=== PATIENT | female | born 1960 | race Caucasian/White ===

== ENCOUNTER 2017-11-04 17:55 | Emergency (ER) | payer MEDICAID ==
[~2017-11-04] VITALS: Ht 152.4 cm; Wt 56.0 kg
[~2017-11-04 17:55] MED LIST: ASPI-128 PO; CLIN150C2 PO; METO-292 PO; PANT-47 PO; PRAM0.253 PO; PRED10TA23 PO
[2017-11-04] MEDS ORDERED: ketorolac trometh. 30mg/ml inj. IM ONE ×2 (19:00→20:35)
[2017-11-04] MEDS ORDERED: cyclobenzaprine 10mg tablet PO ONE ×2 (19:00→20:35)
[2017-11-04] MEDS ORDERED: HYDROcodone/acetaminophen 5mg/325mg tablet PO ONE ×2 (19:00→20:35)
[2017-11-04] MEDS ORDERED: CYCL-1 PO (19:46)
[2017-11-04] MEDS ORDERED: MELO7.5T12 PO (19:46)
[2017-11-04 20:52] VITALS: BP 158/81
== END 2017-11-04 20:53 | disposition home or self-care (01) ==
LOC: ER 17:56
DX: M50.321 Other cervical disc degeneration at C4-C5 level (principal); G89.29 Other chronic pain; Z79.899 Other long term (current) drug therapy; Z88.0 Allergy status to penicillin; Z88.1 Allergy status to other antibiotic agents; Z88.2 Allergy status to sulfonamides; Z88.6 Allergy status to analgesic agent
CPT/HCPCS: 72040; 96372; 99284; J1885

== ENCOUNTER 2019-05-05 17:51 | Emergency (ER) | payer SELFPAY ==
[~2019-05-05] VITALS: Ht 157.5 cm; Wt 60.0 kg
[~2019-05-05 17:51] MED LIST changes: +CYCL-1 PO; +MELO7.5T12 PO
[2019-05-05 17:53] VITALS: BP 135/65
== END 2019-05-05 20:11 | disposition home or self-care (01) ==
LOC: ER 17:52
DX: S93.691A Other sprain of right foot, initial encounter (principal); S90.01XA Contusion of right ankle, initial encounter; G89.29 Other chronic pain; F17.200 Nicotine dependence, unspecified, uncomplicated; Z90.710 Acquired absence of both cervix and uterus; Z88.0 Allergy status to penicillin; Z88.2 Allergy status to sulfonamides; Z88.1 Allergy status to other antibiotic agents; Z88.6 Allergy status to analgesic agent; Z79.82 Long term (current) use of aspirin; Z79.899 Other long term (current) drug therapy; W01.0XXA Fall on same level from slipping, tripping and stumbling without subsequent striking against object, initial encounter; Y93.89 Activity, other specified; Y92.89 Other specified places as the place of occurrence of the external cause; Y99.8 Other external cause status
CPT/HCPCS: 29540; 73610; 99283

== ENCOUNTER 2019-11-19 14:18 | Inpatient (IN) | payer OTHER ==
[~2019-11-19] VITALS: Ht 157.5 cm; Wt 60.0 kg
[2019-11-19 14:50] LABS: BASOPHILS # (AUTO) 0.1 X10'3 (0-0.2); BASOPHILS % (AUTO) 1.4 % (0-1); EOSINOPHILS # (AUTO) 0.1 X10'3 (0-0.9); HEMATOCRIT 41.3 % (35.0-45.0); HEMOGLOBIN 14.2 g/dl (12.0-16.0); LYMPHOCYTES # (AUTO) 3.1 X10'3 (1.1-4.8); LYMPHOCYTES % (AUTO) 33.9 % (21-51); MEAN CORPUSCULAR HGB CONC 34.4 g/dL (33.0-36.5); MEAN PLATELET VOLUME 8.4 FL (7.4-10.4); MONOCYTES # (AUTO) 0.4 X10'3 (0-0.9); MONOCYTES % (AUTO) 4.8 % (2-12); NEUTROPHILS # (AUTO) 5.4 X10'3 (1.8-7.7); NEUTROPHILS % (AUTO) 58.9 % (42-75); PLATELET COUNT 283 X10'3 (140-440); RED BLOOD COUNT 4.75 X10'6 (4.20-5.60); RED CELL DISTRIBUTION WIDTH 13.7 % (11.5-14.5); WHITE BLOOD COUNT 9.1 X10'3 (4.5-11.0)
[2019-11-19 15:05] LABS: ALANINE AMINOTRANSFERASE 20 U/L (12-78); ALBUMIN 3.8 G/DL (3.4-5.0); ALKALINE PHOSPHATASE 63 IU/L (46-116); ASPARTATE AMINO TRANSFERASE 14 U/L (10-37); BILIRUBIN,TOTAL 0.2 MG/DL (0.1-1.0); BLOOD UREA NITROGEN 16 MG/DL (7-18); BUN/CREATININE RATIO 20.5 (6.6-38.0); CALCIUM 8.9 MG/DL (8.5-10.1); CREATININE 0.78 MG/DL (0.40-0.90); LIPASE 119 U/L (73-393); TOTAL CARBON DIOXIDE 27.5 MMOL/L (24-32); TOTAL PROTEIN 7.7 G/DL (6.4-8.2); eGFR 76 ML/MIN
[2019-11-19 15:06] LABS: CLARITY,URINE CLOUDY (Clear); COLOR,URINE YELLOW (Yellow); GLUCOSE, URINE NEGATIVE (Neg); KETONES,URINE NEGATIVE (Neg); LEUKOCYTE ESTERASE ,URINE NEGATIVE (Neg); NITRITES, URINE POSITIVE (Neg); OCCULT BLOOD,URINE MODERATE (Neg); PH,URINE 5.5 (4.8-8.0); PROTEIN,URINE NEGATIVE (Neg); UROBILINOGEN,URINE 0.2 E.U/dL (0.2-1.0)
[2019-11-19 15:07] LABS: UA COLLECTION TYPE CLN CATCH MIDSTREAM
[2019-11-19 15:25] LABS: BACTERIA,URINE 3+ /HPF (Neg); MUCUS STRANDS FEW /LPF (Neg); SQUAMOUS EPITHELIAL CELL,UR FEW /LPF (FEW)
[2019-11-19 15:26] LABS: RBC,URINE 0-2 /HPF (0-2); WBC,URINE 0-4 /HPF (0-4)
[2019-11-19 15:30] LABS: GLUCOSE 132 MG/DL (70-104); POTASSIUM 3.5 MMOL/L (3.5-5.1)
[2019-11-19 15:38] LABS: ANION GAP 15 (8-16); CHLORIDE 101 MMOL/L (99-107); SODIUM 143 MMOL/L (135-145)
[2019-11-19] MEDS: ketorolac trometh inj. 60 MG/2 ML VIAL IM ONE ×2 (17:57→18:07)
--- NOTE | 2019-11-19 18:36 | NUR ---
RN attempted IV and troponin lab draw x2. EDMD Lucio aware, stated patient does not need IV at this time.
[2019-11-19] MEDS: normal saline 1000ml 1,000 ML IV SCH (19:08)
[2019-11-19] MEDS ORDERED: potassium Cl 20 mEq SR tablet PO PRN ×2 (19:10)
[2019-11-19] MEDS ORDERED: magnesium Cl slow-release 64mg tablet PO PRN (19:10)
[2019-11-19] MEDS ORDERED: sincalide inj 1.2 MCG in normal saline 50ml IV soln 50 ML IV ONE (19:10)
[2019-11-19] MEDS ORDERED: potassium CL 10mEq/100ml bag 100 ML IV PRN ×2 (19:10)
[2019-11-19] MEDS ORDERED: magnesium 2GM in 50ml NS 50 ML IV PRN (19:10)
[2019-11-19] MEDS ORDERED: acetaminophen 650mg rectal suppository RC PRN (19:10)
[2019-11-19] MEDS ORDERED: magnesium 4gm in 100ml NS 100 ML IV PRN (19:10)
--- NOTE | 2019-11-19 19:20 | NUR ---
PT HAD TO WALK HER GRANDSON OUT TO HIS MOTHER
--- NOTE | 2019-11-19 19:33 | NUR ---
SHE IS BACK, I WENT OUT TO THE PARKING LOT TO GET HER, HER DAUGHTER IS SUPPOSEDLY ON THE WAY BUT I INTRUCTED HER BACK TO HER ROOM.
[2019-11-19] MEDS ORDERED: NO HOME MEDS (19:40)
[2019-11-19] MEDS: K and/or MAG REPLACEMENT MC SCH (20:00)
[2019-11-19] MEDS: morphine 2 MG/ML inj. syringe IV PRN (20:00)
[2019-11-19] MEDS: pantoprazole 40 MG vial IV SCH (20:29)
--- NOTE | 2019-11-19 21:23 | NUR ---
I WAS INFORMED THAT SHE WAS ESCORTED BACK TO HER ROOM, SHE WAS GOING TO GO OUTSIDE. I GOT DR CHATMAN AND WE WENT INTO THE ROOM. SHE IS UPSET THAT SHE WAS STOPPED. INFORMED PT THAT SHE CANNOT GO OUTSIDE WITH AN IV. SHE KNOWS THIS FROM EARLIER, I WALKED HER GRANDSON OUTSIDE TO MEET HIS MOTHER. THAN SHE C/O BEING HUNGRY. I ASKED HER IF SHE ORDERED FOOD LIKE SHE WAS GOING TO. SHE SAID NO BECAUSE SHE WOULDN'T EAT IT ALL AND THAT WOULD BE A WASTE OF MONEY. SO I ASKED HER IF SHE WANTED ME TO BRING HER A SANDWICHE AND SHE DECLINED. DR CHATMAN WILL ORDER HER A NICOTINE PATCH.
[2019-11-19] MEDS ORDERED: nicotine 21mg patch - 24 hr TD ONE (21:25)
--- NOTE | 2019-11-19 22:45 | NUR ---
Dr oLpez notified that the patient had wanted to leave earlier and also to inform her of a UTI
--- NOTE | 2019-11-19 23:33 | NUR ---
notified pharmacy, second time, to re time the med that is adm for gallbladder study.
[2019-11-20] VITALS (19 sets, daily range): BP systolic 104–140; BP diastolic 38–76
--- NOTE | 2019-11-20 02:51 | NUR ---
lab in to draw blood, as soon as he got needle in she pulled her hand away and said "ofelia, you don't have to jab so hard!" He didn't, she did the same thing with me when I started her IV earlier.
[2019-11-20] MEDS: morphine 2 MG/ML inj. syringe IV PRN ×3 (03:02→15:43)
[2019-11-20 03:28] LABS: BASOPHILS # (AUTO) 0.1 X10'3 (0-0.2); BASOPHILS % (AUTO) 0.6 % (0-1); EOSINOPHILS # (AUTO) 0.1 X10'3 (0-0.9); EOSINOPHILS % (AUTO) 1.7 % (0-6); HEMATOCRIT 38.1 % (35.0-45.0); LYMPHOCYTES % (AUTO) 33.9 % (21-51); MEAN CORPUSCULAR HEMOGLOBIN 29.9 PG (27.0-31.0); MEAN CORPUSCULAR HGB CONC 34.2 g/dL (33.0-36.5); MEAN CORPUSCULAR VOLUME 87.2 FL (78-98); MEAN PLATELET VOLUME 8.5 FL (7.4-10.4); MONOCYTES # (AUTO) 0.6 X10'3 (0-0.9); MONOCYTES % (AUTO) 6.6 % (2-12); NEUTROPHILS % (AUTO) 57.2 % (42-75); PLATELET COUNT 243 X10'3 (140-440); RED BLOOD COUNT 4.37 X10'6 (4.20-5.60); RED CELL DISTRIBUTION WIDTH 13.5 % (11.5-14.5); WHITE BLOOD COUNT 8.7 X10'3 (4.5-11.0)
[2019-11-20 03:44] LABS: ALBUMIN 3.3 G/DL (3.4-5.0); ANION GAP 12 (8-16); BLOOD UREA NITROGEN 18 MG/DL (7-18); BUN/CREATININE RATIO 31.6 (6.6-38.0); CHLORIDE 108 MMOL/L (99-107); CREATININE 0.57 MG/DL (0.40-0.90); GLUCOSE 100 MG/DL (70-104); MAGNESIUM 2.1 MG/DL (1.5-2.4); POTASSIUM 3.8 MMOL/L (3.5-5.1); SODIUM 143 MMOL/L (135-145); TOTAL CARBON DIOXIDE 23.5 MMOL/L (24-32); eGFR > 90 ML/MIN
--- NOTE | 2019-11-20 04:28 | NUR ---
PT APPEARS TO BE ASLEEP.
--- NOTE | 2019-11-20 06:50 | NUR ---
Received patient report from ER nurse Mario RN. Awaiting arrival to room 354A.
[2019-11-20] MEDS: pantoprazole 40 MG vial IV SCH ×2 (07:44→20:37)
[2019-11-20] MEDS: normal saline 1000ml 1,000 ML IV SCH ×3 (07:44→20:43)
[2019-11-20] MEDS: K and/or MAG REPLACEMENT MC SCH ×2 (07:49→20:00)
[2019-11-20] MEDS ORDERED: sincalide inj 1.2 MCG in normal saline 50ml IV soln 50 ML IV ONE (08:00)
[2019-11-20] MEDS ORDERED: ringers solution, lacted 1,000 ML IV SCH (11:41)
[2019-11-20] MEDS ORDERED: BUPIVAcaine/PF 2.5 mg/ml (0.25%) 30ml vial ONE (11:44)
[2019-11-20] MEDS ORDERED: LIDOcaine 1% 30ml preserv. free vial ONE (11:44)
[2019-11-20] MEDS ORDERED: morphine 4 MG/ML inj SYRINge IV PRN (11:45)
[2019-11-20] MEDS ORDERED: ondansetron/PF 4mg/2ml inj IV PRN (11:45)
[2019-11-20] MEDS ORDERED: proCHLORperazine 10 MG/2 ml inj IV PRN (11:45)
[2019-11-20] MEDS ORDERED: morphine 2 MG/ML inj. syringe IV PRN (11:45)
[2019-11-20] MEDS ORDERED: meperidine/PF 25mg/ml syringe IV PRN ×2 (11:45)
[2019-11-20] MEDS ORDERED: fentaNYL/PF 50MCG/1 ML 2ML syringe ONE (11:52)
[2019-11-20] MEDS ORDERED: midazolam 2 mg/2 ml injection ONE (11:52)
[2019-11-20] MEDS ORDERED: CLINDAmcin 900mg/NS 50ml IVPB 50 ML IV ONE (11:55)
[2019-11-20] MEDS ORDERED: sevoflurane 250ml liquid IH ONE (12:08)
[2019-11-20] MEDS ORDERED: clindamycin-Cleocin 900mg/D5W 50 ML IV ONE (12:15)
[2019-11-20] MEDS ORDERED: clindamycin phosphate 150mg/ml inj. ONE ×2 (12:27)
[2019-11-20] MEDS ORDERED: propofol inj 20 ML IV ONE ×2 (12:37→12:38)
[2019-11-20] MEDS ORDERED: LIDOcaine 2% (20mg/ml) 5ml vial ONE ×2 (12:37→12:38)
[2019-11-20] MEDS ORDERED: dexamethasone sod phosphate 4mg/ml inj. ONE (12:38)
[2019-11-20] MEDS ORDERED: ondansetron/PF 4mg/2ml inj ONE (12:38)
[2019-11-20] MEDS ORDERED: glycopyrrolate 0.2mg/ml inj ONE (13:07)
[2019-11-20] MEDS ORDERED: neostigmine methylsulfate 1 MG/ML 10ml vial ONE (13:07)
[2019-11-20] MEDS ORDERED: HYDROcodone/acetaminophen 5mg/325mg tablet PO PRN (13:15)
--- NOTE | 2019-11-20 13:20 | NUR ---
Received from OR via surgical bed, accompanied by Anesthesiologist Fox and report given by Anesthesiolgist. Pt VS WNL, mask to 10L sats at 96% or greater. Abdomen with 4 lap sites and bandaids, soft to touch, CDI. 22G to left hand with IVF LR to 100cc/hr. Pt responsive, states no pain.
[2019-11-20] MEDS: meperidine/PF 25mg/ml syringe IV PRN ×3 (13:33→14:26)
[2019-11-20] MEDS ORDERED: diphenhydrAMINE 50 mg/ml inj IV ONE (13:40)
--- NOTE | 2019-11-20 13:40 | NUR ---
Called Dr Braxton to relay patient being very itchy when she woke up, demerol has been given. He states ok to give 25mg of IV benadryl and a secondary dose to follow if unresolved. Orders placed.
[2019-11-20] MEDS ORDERED: diphenhydrAMINE 50 mg/ml inj ONE (13:44)
--- NOTE | 2019-11-20 13:52 | NUR ---
Pt complains of pain and burning to left hand when IV flushed so new IV started to right hand, 22G without incident.
--- NOTE | 2019-11-20 14:15 | NUR ---
Received patient report from recovery room nurse Kristan HALLMAN.
[2019-11-20] MEDS ORDERED: diphenhydrAMINE 50 mg/ml inj IV PRN (14:20)
--- NOTE | 2019-11-20 14:40 | NUR ---
Report called to receiving nurse LEXX hewitt. Transferred via surgical bed. Belongings remain in the patient's room, 354A. Special Issues communicated to receiving nurse who is at bedside to receive patient. Pt settled into room, sleeping, BLL call light within reach, abdomen visualized by receiving nurse and myself. Chart at bedside. Daughter at bedside upon pt arrival.
--- NOTE | 2019-11-20 14:41 | NUR ---
Patient back in room 354A. Abdomen soft, 4 lap sites CDI. VSS.
[2019-11-20] MEDS ORDERED: nicotine 14mg patch - 24hr TD ONE (17:28)
[2019-11-20] MEDS: HYDROcodone/acetaminophen 10/325mg tab PO PRN (17:37)
--- NOTE | 2019-11-20 18:18 | NUR ---
Problems reprioritized. Patient report given, questions answered & plan of care reviewed with Prudence RN.
--- NOTE | 2019-11-20 18:26 | NUR ---
Patient in room CRYSTAL 354. I have received report from Carissa HALLMAN and had the opportunity to ask questions and assume patient care.
[2019-11-20] MEDS: ondansetron/PF 4mg/2ml inj IV PRN (20:37)
[2019-11-21] VITALS: BP 110/60
[2019-11-21] MEDS: HYDROcodone/acetaminophen 10/325mg tab PO PRN ×3 (03:17→19:25)
[2019-11-21] MEDS: normal saline 1000ml 1,000 ML IV SCH ×2 (05:24→21:08)
[2019-11-21 05:35] LABS: BASOPHILS % (AUTO) 0.2 % (0-1); EOSINOPHILS % (AUTO) 0 % (0-6); HEMATOCRIT 34.7 % (35.0-45.0); HEMOGLOBIN 11.8 g/dl (12.0-16.0); LYMPHOCYTES # (AUTO) 1.1 X10'3 (1.1-4.8); LYMPHOCYTES % (AUTO) 6.7 % (21-51); MEAN CORPUSCULAR HEMOGLOBIN 29.7 PG (27.0-31.0); MEAN CORPUSCULAR HGB CONC 34.1 g/dL (33.0-36.5); MEAN CORPUSCULAR VOLUME 87.2 FL (78-98); MEAN PLATELET VOLUME 8.5 FL (7.4-10.4); MONOCYTES # (AUTO) 0.8 X10'3 (0-0.9); MONOCYTES % (AUTO) 4.5 % (2-12); NEUTROPHILS # (AUTO) 15.2 X10'3 (1.8-7.7); NEUTROPHILS % (AUTO) 88.6 % (42-75); PLATELET COUNT 252 X10'3 (140-440); RED BLOOD COUNT 3.98 X10'6 (4.20-5.60); RED CELL DISTRIBUTION WIDTH 13.7 % (11.5-14.5); WHITE BLOOD COUNT 17.1 X10'3 (4.5-11.0)
[2019-11-21 05:56] LABS: ALBUMIN 2.9 G/DL (3.4-5.0); ANION GAP 11 (8-16); BLOOD UREA NITROGEN 9 MG/DL (7-18); BUN/CREATININE RATIO 12.7 (6.6-38.0); CALCIUM 8.4 MG/DL (8.5-10.1); CHLORIDE 108 MMOL/L (99-107); CREATININE 0.71 MG/DL (0.40-0.90); GLUCOSE 132 MG/DL (70-104); MAGNESIUM 1.7 MG/DL (1.5-2.4); POTASSIUM 4.2 MMOL/L (3.5-5.1); SODIUM 141 MMOL/L (135-145); TOTAL CARBON DIOXIDE 22.5 MMOL/L (24-32); eGFR 85 ML/MIN
--- NOTE | 2019-11-21 06:21 | NUR ---
Problems reprioritized. Patient report given, questions answered & plan of care reviewed with Yogesh RN. Patient resting and denies having pain
--- NOTE | 2019-11-21 06:30 | NUR ---
Patient in room [facility]YSTAL 354. I have received report from LEXX Parada and had the opportunity to ask questions and assume patient care.
[2019-11-21] MEDS: pantoprazole 40 MG vial IV SCH ×2 (07:52→21:23)
[2019-11-21] MEDS: nicotine 14mg patch - 24hr TD SCH (07:53)
[2019-11-21 08:00] VITALS: BP 126/61
[2019-11-21] MEDS: K and/or MAG REPLACEMENT MC SCH ×2 (08:00→20:00)
[2019-11-21 08:12] LABS: ALANINE AMINOTRANSFERASE 57 U/L (12-78); ALBUMIN/GLOBULIN RATIO 0.8 (1.1-1.5); ALKALINE PHOSPHATASE 50 IU/L (46-116); ASPARTATE AMINO TRANSFERASE 32 U/L (10-37); BILIRUBIN,TOTAL 0.3 MG/DL (0.1-1.0); TOTAL PROTEIN 6.5 G/DL (6.4-8.2)
[2019-11-21 08:27] LABS: BILIRUBIN,DIRECT < 0.1 MG/DL (0-0.3)
[2019-11-21] MEDS ORDERED: CefTRIAXone 2gm/D5W 50ml 50 ML IV SCH (09:00)
[2019-11-21 11:00] VITALS: BP 113/56
[2019-11-21] MEDS: diphenhydrAMINE 25mg capsule PO PRN ×2 (11:26→21:24)
[2019-11-21 14:08] LABS: BASOPHILS % (AUTO) 0.4 % (0-1); EOSINOPHILS % (AUTO) 0.2 % (0-6); HEMATOCRIT 35.7 % (35.0-45.0); LYMPHOCYTES # (AUTO) 2.1 X10'3 (1.1-4.8); LYMPHOCYTES % (AUTO) 15.5 % (21-51); MEAN CORPUSCULAR HEMOGLOBIN 29.4 PG (27.0-31.0); MEAN CORPUSCULAR HGB CONC 33.7 g/dL (33.0-36.5); MEAN CORPUSCULAR VOLUME 87.5 FL (78-98); MEAN PLATELET VOLUME 8.6 FL (7.4-10.4); MONOCYTES # (AUTO) 0.6 X10'3 (0-0.9); MONOCYTES % (AUTO) 4.9 % (2-12); NEUTROPHILS # (AUTO) 10.5 X10'3 (1.8-7.7); PLATELET COUNT 238 X10'3 (140-440); RED BLOOD COUNT 4.08 X10'6 (4.20-5.60); WHITE BLOOD COUNT 13.3 X10'3 (4.5-11.0)
[2019-11-21] MEDS: metroNIDAZOLE-Flagyl 500mg/NS 100 ML IV SCH (17:13)
[2019-11-21 18:00] VITALS: BP 140/86
--- NOTE | 2019-11-21 18:18 | NUR ---
Problems reprioritized. Patient report given, questions answered & plan of care reviewed with LEXX Parada.
[2019-11-21] MEDS: lactobacillus rhamnosus 10,000 MMU CELLS/CAPSULE PO SCH (21:24)
[2019-11-21] MEDS: morphine 2 MG/ML inj. syringe IV PRN (21:34)
[2019-11-22] MEDS: metroNIDAZOLE-Flagyl 500mg/NS 100 ML IV SCH ×4 (00:46→23:26)
[2019-11-22] MEDS: normal saline 1000ml 1,000 ML IV SCH ×3 (00:50→17:24)
[2019-11-22] MEDS: diphenhydrAMINE 25mg capsule PO PRN ×2 (03:44→23:58)
[2019-11-22] MEDS: HYDROcodone/acetaminophen 10/325mg tab PO PRN ×4 (03:46→17:05)
--- NOTE | 2019-11-22 06:32 | NUR ---
Problems reprioritized. Patient report given, questions answered & plan of care reviewed with Mary Jane HALLMAN. Patient is reesting and denies having pain.
[2019-11-22 06:51] LABS: BASOPHILS # (AUTO) 0.1 X10'3 (0-0.2); BASOPHILS % (AUTO) 0.9 % (0-1); EOSINOPHILS % (AUTO) 0.3 % (0-6); HEMATOCRIT 32.8 % (35.0-45.0); HEMOGLOBIN 11.4 g/dl (12.0-16.0); LYMPHOCYTES # (AUTO) 1.6 X10'3 (1.1-4.8); LYMPHOCYTES % (AUTO) 12.9 % (21-51); MEAN CORPUSCULAR HEMOGLOBIN 30.6 PG (27.0-31.0); MEAN CORPUSCULAR HGB CONC 34.8 g/dL (33.0-36.5); MEAN CORPUSCULAR VOLUME 87.9 FL (78-98); MEAN PLATELET VOLUME 8.5 FL (7.4-10.4); MONOCYTES # (AUTO) 0.7 X10'3 (0-0.9); MONOCYTES % (AUTO) 5.9 % (2-12); NEUTROPHILS # (AUTO) 9.7 X10'3 (1.8-7.7); PLATELET COUNT 216 X10'3 (140-440); RED BLOOD COUNT 3.73 X10'6 (4.20-5.60); RED CELL DISTRIBUTION WIDTH 13.9 % (11.5-14.5); WHITE BLOOD COUNT 12.1 X10'3 (4.5-11.0)
[2019-11-22 07:00] VITALS: BP 164/83
[2019-11-22 07:02] LABS: ALBUMIN 2.8 G/DL (3.4-5.0); ANION GAP 11 (8-16); BLOOD UREA NITROGEN 8 MG/DL (7-18); BUN/CREATININE RATIO 11.9 (6.6-38.0); CHLORIDE 107 MMOL/L (99-107); CREATININE 0.67 MG/DL (0.40-0.90); GLUCOSE 118 MG/DL (70-104); MAGNESIUM 1.6 MG/DL (1.5-2.4); POTASSIUM 3.6 MMOL/L (3.5-5.1); SODIUM 142 MMOL/L (135-145); TOTAL CARBON DIOXIDE 24.1 MMOL/L (24-32); eGFR 90 ML/MIN
[2019-11-22] MEDS: nicotine 14mg patch - 24hr TD SCH (07:48)
[2019-11-22] MEDS: pantoprazole 40 MG vial IV SCH ×2 (07:48→19:43)
[2019-11-22] MEDS: lactobacillus rhamnosus 10,000 MMU CELLS/CAPSULE PO SCH ×2 (07:48→19:38)
[2019-11-22] MEDS ORDERED: levoFLOXACIN-Levaquin 500mg/D5 100 ML IV SCH (08:00)
[2019-11-22] MEDS: K and/or MAG REPLACEMENT MC SCH ×2 (08:00→20:00)
[2019-11-22 11:00] VITALS: BP 144/60
--- NOTE | 2019-11-22 18:54 | NUR ---
Patient in room CRYSTAL 354. I have received report from LEXX Hinton and had the opportunity to ask questions and assume patient care.
[2019-11-22 19:00] VITALS: BP 171/88
--- NOTE | 2019-11-22 19:25 | NUR ---
shift total for patient Addendum: 11/22/19 at 1926 by Vijaya Vaz STUDENT JORGE L Amended: Links added.
--- NOTE | 2019-11-22 19:37 | NUR ---
Problems reprioritized. Patient report given, questions answered & plan of care reviewed with Ivy HALLMAN.
[2019-11-22] MEDS: ondansetron/PF 4mg/2ml inj IV PRN (19:38)
[2019-11-22] MEDS: morphine 2 MG/ML inj. syringe IV PRN (19:38)
[2019-11-22 20:23] VITALS: BP 155/78
[2019-11-23] VITALS: BP 129/70
[2019-11-23] MEDS: normal saline 1000ml 1,000 ML IV SCH (03:07)
--- NOTE | 2019-11-23 06:20 | NUR ---
Problems reprioritized. Patient report given, questions answered & plan of care reviewed with LEXX Hinton.
[2019-11-23 06:22] LABS: BASOPHILS % (AUTO) 0.4 % (0-1); EOSINOPHILS # (AUTO) 0.1 X10'3 (0-0.9); EOSINOPHILS % (AUTO) 0.9 % (0-6); HEMATOCRIT 33.6 % (35.0-45.0); HEMOGLOBIN 11.7 g/dl (12.0-16.0); LYMPHOCYTES # (AUTO) 1.4 X10'3 (1.1-4.8); MEAN CORPUSCULAR HEMOGLOBIN 30.5 PG (27.0-31.0); MEAN CORPUSCULAR HGB CONC 34.7 g/dL (33.0-36.5); MEAN CORPUSCULAR VOLUME 87.9 FL (78-98); MEAN PLATELET VOLUME 8.7 FL (7.4-10.4); MONOCYTES # (AUTO) 0.8 X10'3 (0-0.9); MONOCYTES % (AUTO) 6.8 % (2-12); NEUTROPHILS # (AUTO) 9.4 X10'3 (1.8-7.7); NEUTROPHILS % (AUTO) 79.9 % (42-75); PLATELET COUNT 215 X10'3 (140-440); RED BLOOD COUNT 3.82 X10'6 (4.20-5.60); RED CELL DISTRIBUTION WIDTH 13.7 % (11.5-14.5); WHITE BLOOD COUNT 11.8 X10'3 (4.5-11.0)
[2019-11-23 06:25] LABS: ALBUMIN 2.7 G/DL (3.4-5.0); ANION GAP 9 (8-16); BLOOD UREA NITROGEN 5 MG/DL (7-18); BUN/CREATININE RATIO 8.1 (6.6-38.0); CALCIUM 8.4 MG/DL (8.5-10.1); CHLORIDE 105 MMOL/L (99-107); CREATININE 0.62 MG/DL (0.40-0.90); GLUCOSE 99 MG/DL (70-104); MAGNESIUM 1.7 MG/DL (1.5-2.4); POTASSIUM 3.4 MMOL/L (3.5-5.1); SODIUM 140 MMOL/L (135-145); TOTAL CARBON DIOXIDE 26.3 MMOL/L (24-32); eGFR > 90 ML/MIN
[2019-11-23] MEDS ORDERED: potassium Cl 20 mEq SR tablet PO PRN ×2 (06:50)
[2019-11-23] MEDS ORDERED: potassium CL 10mEq/100ml bag 100 ML IV PRN (06:50)
[2019-11-23] MEDS: pantoprazole 40 MG vial IV SCH (07:16)
[2019-11-23] MEDS: metroNIDAZOLE-Flagyl 500mg/NS 100 ML IV SCH (07:16)
[2019-11-23] MEDS: nicotine 14mg patch - 24hr TD SCH (07:16)
[2019-11-23] MEDS: lactobacillus rhamnosus 10,000 MMU CELLS/CAPSULE PO SCH (07:17)
[2019-11-23] MEDS: HYDROcodone/acetaminophen 10/325mg tab PO PRN (07:24)
[2019-11-23] MEDS: diphenhydrAMINE 25mg capsule PO PRN (07:24)
[2019-11-23 08:00] VITALS: BP 154/69
[2019-11-23] MEDS: K and/or MAG REPLACEMENT MC SCH (08:44)
[2019-11-23] MEDS ORDERED: NICO-631 TD (11:21)
--- NOTE | 2019-11-23 11:51 | NUR ---
Pt discharged home. Pt had car down in ER. She is appropriate for discharge and states she is okay to drive home. Pt's last norco was early in the AM and she appears appropriate to drive self down. IV taken out, no tele. All belongings taken from room. Pt will f/u with Dr Shea and come back to ER with any issues.
== END 2019-11-23 11:48 | disposition home or self-care (01) | DRG 336 ==
LOC: ER 14:19 → ED HOLD 19:08 → SUR 3N 11-20 07:40
PROVIDERS: ADMIT Internal Medicine; ATTEND Family Medicine
PROC: 0DNW4ZZ Release Peritoneum, Percutaneous Endoscopic Approach (ICD-10-PCS; 2019-11-20)
PROC: 0FT44ZZ Resection of Gallbladder, Percutaneous Endoscopic Approach (ICD-10-PCS; 2019-11-20)
PROC: 0WQF0ZZ Repair Abdominal Wall, Open Approach (ICD-10-PCS; principal; 2019-11-20 12:08)
DX: K43.2 Incisional hernia without obstruction or gangrene (principal); K80.12 Calculus of gallbladder with acute and chronic cholecystitis without obstruction; K66.0 Peritoneal adhesions (postprocedural) (postinfection); M54.9 Dorsalgia, unspecified; G89.29 Other chronic pain; F17.200 Nicotine dependence, unspecified, uncomplicated; Z88.8 Allergy status to other drugs, medicaments and biological substances; Z90.710 Acquired absence of both cervix and uterus; Z88.0 Allergy status to penicillin; Z88.2 Allergy status to sulfonamides; Z88.5 Allergy status to narcotic agent
CPT/HCPCS: 99285; Z7506; Z7508; 36415; 71045; 76700; 80048; 80053; 80076; 81001; 82948; 83605; 83690; 83735; 84145; 84484; 85025; 87040; 87077; 87081; 87088; 87186; 93005; A4215; A4618; A7000; C9113; G0378; J1100; J1200; J1885; J2001; J2175; J2250; J2270; J2405; J2704; J2710; J3010; J3490; J7030; J7120; Q0163

== ENCOUNTER 2020-10-14 13:04 | Emergency (ER) | payer MEDICAID, OTHER ==
[~2020-10-14] VITALS: Ht 152.4 cm; Wt 81.1 kg
[2020-10-14 13:09] VITALS: BP 177/100
[2020-10-14] MEDS ORDERED: LORazepam 2 mg/ml vial IM ONE (13:35)
[2020-10-14] MEDS ORDERED: TETanus/Pertussis (Acell)/Diphther VAC/PF (Tdap-Adult) 0.5ml syringe IMVAC ONE (13:35)
[2020-10-14] MEDS ORDERED: LIDOcaine 1% W/epiNEPHrine 1:200,000 10ml vial IJ ONE (13:35)
[2020-10-14] MEDS ORDERED: HYDR-3965 PO (14:41)
== END 2020-10-14 16:38 | disposition home or self-care (01) ==
LOC: ER 13:04
DX: S61.214A Laceration without foreign body of right ring finger without damage to nail, initial encounter (principal); G89.29 Other chronic pain; Z90.710 Acquired absence of both cervix and uterus; Z88.0 Allergy status to penicillin; Z88.2 Allergy status to sulfonamides; Z88.1 Allergy status to other antibiotic agents; Z88.6 Allergy status to analgesic agent; Z79.899 Other long term (current) drug therapy; W26.0XXA Contact with knife, initial encounter; Y93.89 Activity, other specified; Y92.89 Other specified places as the place of occurrence of the external cause; Y99.8 Other external cause status
CPT/HCPCS: 12001; 73140; 96372; 99283; J2060

== ENCOUNTER 2020-10-20 14:16 | Emergency (ER) | payer OTHER ==
[~2020-10-20] VITALS: Ht 154.9 cm; Wt 62.3 kg
[~2020-10-20 14:16] MED LIST changes: -ASPI-128 PO; -CLIN150C2 PO; -CYCL-1 PO; +HYDR-3965 PO; -MELO7.5T12 PO; -METO-292 PO; -PANT-47 PO; -PRAM0.253 PO; -PRED10TA23 PO
[2020-10-20 14:30] VITALS: BP 105/60
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
[2020-10-22] MEDS ORDERED: HYDR-3964 PO (10:25)
[2020-10-22] MEDS ORDERED: NICO-631 TD (10:25)
[2020-10-22] MEDS ORDERED: PER5325T PO (10:58)
== END 2020-10-20 16:11 | disposition home or self-care (01) ==
LOC: ER 14:17
DX: S61.214D Laceration without foreign body of right ring finger without damage to nail, subsequent encounter (principal); G89.29 Other chronic pain; Z48.02 Encounter for removal of sutures; Z90.710 Acquired absence of both cervix and uterus; Z88.0 Allergy status to penicillin; Z88.2 Allergy status to sulfonamides; Z88.6 Allergy status to analgesic agent; Z79.899 Other long term (current) drug therapy; W26.0XXD Contact with knife, subsequent encounter
CPT/HCPCS: 99281

== ENCOUNTER 2021-08-05 19:31 | Inpatient (IN) | payer MEDICAID ==
[~2021-08-05] VITALS: Ht 152.4 cm; Wt 43.1 kg
[~2021-08-05 19:31] MED LIST changes: +ALBU18HF2 INH; +ASPI-1 PEG; +ATOR20TA66 PEG; +ESCI5TAB PEG; +FAMO20TA8 PEG; +FLUT1DIS4 INH; -HYDR-3965 PO; +NICO-631 TD; +NYST1000 PO
[2021-08-05 19:55] LABS: BASOPHILS % (AUTO) 0.5 % (0-1); EOSINOPHILS # (AUTO) 0.1 X10'3 (0-0.9); EOSINOPHILS % (AUTO) 1.6 % (0-6); HEMATOCRIT 39.2 % (35.0-45.0); HEMOGLOBIN 13.5 g/dl (12.0-16.0); LYMPHOCYTES % (AUTO) 29.6 % (21-51); MEAN CORPUSCULAR HEMOGLOBIN 31.2 PG (27.0-31.0); MEAN CORPUSCULAR HGB CONC 34.4 g/dL (33.0-36.5); MEAN CORPUSCULAR VOLUME 90.6 FL (78-98); MEAN PLATELET VOLUME 9.6 FL (7.4-10.4); MONOCYTES # (AUTO) 0.3 X10'3 (0-0.9); NEUTROPHILS # (AUTO) 4.2 X10'3 (1.8-7.7); NEUTROPHILS % (AUTO) 63.3 % (42-75); PLATELET COUNT 206 X10'3 (140-440); RED BLOOD COUNT 4.33 X10'6 (4.20-5.60); RED CELL DISTRIBUTION WIDTH 14.9 % (11.5-14.5); WHITE BLOOD COUNT 6.7 X10'3 (4.5-11.0)
[2021-08-05 20:08] LABS: ALANINE AMINOTRANSFERASE 28 U/L (12-78); ALBUMIN 3.5 G/DL (3.4-5.0); ALKALINE PHOSPHATASE 79 IU/L (46-116); ANION GAP 9 (8-16); ASPARTATE AMINO TRANSFERASE 19 U/L (10-37); BILIRUBIN,TOTAL 0.3 MG/DL (0.1-1.0); BLOOD UREA NITROGEN 8 MG/DL (7-18); BUN/CREATININE RATIO 12.9 (6.6-38.0); CHLORIDE 107 MMOL/L (99-107); CREATININE 0.62 MG/DL (0.40-0.90); GLUCOSE 95 MG/DL (70-104); SODIUM 147 MMOL/L (135-145); TOTAL CARBON DIOXIDE 30.6 MMOL/L (24-32); TOTAL PROTEIN 7.1 G/DL (6.4-8.2); eGFR > 90 ML/MIN
[2021-08-05 20:21] LABS: POTASSIUM 2.8 MMOL/L (3.5-5.1)
[2021-08-05] MEDS ORDERED: morphine 4 MG/ML inj SYRINge IV ONE (20:35)
[2021-08-05] MEDS ORDERED: heparin 10,000 units/1 ML INJ IV ONE (20:45)
[2021-08-05] MEDS ORDERED: potassium Cl 20 mEq SR tablet PO ONE (20:45)
[2021-08-05] MEDS ORDERED: magnesium oxide 400mg tablet PO ONE (20:45)
[2021-08-05] MEDS ORDERED: nitroGLYCERIN 0.4mg SUBLingual tab SL PRN (20:45)
[2021-08-05] MEDS: heparin 25,000 UNIT/250ml bag 250 ML IV SCH (21:00)
[2021-08-05] MEDS: potassium Cl 10 mEq/100mL bag IV SCH ×2 (21:01→21:04)
[2021-08-05] MEDS ORDERED: acetaminophen 325mg tablet PO PRN (21:10)
[2021-08-05] MEDS ORDERED: potassium Cl 20 mEq SR tablet PO PRN ×2 (21:10)
[2021-08-05] MEDS ORDERED: magnesium 2GM in 50ml NS 50 ML IV PRN (21:10)
[2021-08-05] MEDS ORDERED: ondansetron/PF 4mg/2ml inj IV PRN (21:10)
[2021-08-05] MEDS ORDERED: magnesium Cl slow-release 64mg tablet PO PRN (21:10)
[2021-08-05] MEDS ORDERED: magnesium 4gm in 100ml NS 100 ML IV PRN (21:10)
[2021-08-05] MEDS ORDERED: potassium Cl 40MEQ/1/2NS 520ml 520 ML IV PRN (21:10)
[2021-08-05] MEDS ORDERED: acetaminophen 325mg tablet PO ONE (21:10)
[2021-08-05] MEDS ORDERED: acetaminophen 325mg rectal suppository RC ONE (21:15)
[2021-08-05 21:17] LABS: PARTIAL THROMBOPLASTIN TIME 27 SECONDS (22-32)
[2021-08-05] MEDS ORDERED: acetaminophen 650mg rectal suppository RC ONE (21:25)
[2021-08-05] MEDS: normal saline 1000ml 1,000 ML IV SCH (21:36)
[2021-08-05] MEDS ORDERED: ATOR40TA72 PO (22:57)
[2021-08-05] MEDS ORDERED: GABA-530 PO (22:57)
[2021-08-05] MEDS ORDERED: MECL-159 PO (22:58)
[2021-08-05] MEDS ORDERED: ASPI-100 PO (22:59)
[2021-08-05] MEDS ORDERED: PER5325T PO (23:03)
[2021-08-05] MEDS ORDERED: OMEP-50 PO (23:04)
[2021-08-05] MEDS ORDERED: BACL20TA PO (23:05)
[2021-08-05] MEDS ORDERED: FLUO-167 PO (23:06)
[2021-08-06] MEDS: morphine 2 MG/ML inj. syringe IV PRN (01:06)
[2021-08-06 04:41] LABS: PARTIAL THROMBOPLASTIN TIME 88 SECONDS (22-32)
[2021-08-06 07:42] LABS: BASOPHILS # (AUTO) 0.1 X10'3 (0-0.2); BASOPHILS % (AUTO) 1.7 % (0-1); EOSINOPHILS # (AUTO) 0.1 X10'3 (0-0.9); EOSINOPHILS % (AUTO) 1.3 % (0-6); HEMATOCRIT 34.5 % (35.0-45.0); HEMOGLOBIN 12.1 g/dl (12.0-16.0); LYMPHOCYTES # (AUTO) 2.4 X10'3 (1.1-4.8); MEAN CORPUSCULAR HEMOGLOBIN 31.3 PG (27.0-31.0); MEAN CORPUSCULAR HGB CONC 34.9 g/dL (33.0-36.5); MEAN CORPUSCULAR VOLUME 89.6 FL (78-98); MEAN PLATELET VOLUME 9.5 FL (7.4-10.4); MONOCYTES # (AUTO) 0.3 X10'3 (0-0.9); MONOCYTES % (AUTO) 4.4 % (2-12); NEUTROPHILS % (AUTO) 57.6 % (42-75); PLATELET COUNT 199 X10'3 (140-440); RED BLOOD COUNT 3.85 X10'6 (4.20-5.60)
[2021-08-06] MEDS: K and/or MAG REPLACEMENT MC SCH ×2 (08:00→20:00)
[2021-08-06 08:11] LABS: ANION GAP 8 (8-16); BLOOD UREA NITROGEN 7 MG/DL (7-18); BUN/CREATININE RATIO 14.3 (6.6-38.0); CALCIUM 8.5 MG/DL (8.5-10.1); CHLORIDE 107 MMOL/L (99-107); CREATININE 0.49 MG/DL (0.40-0.90); GLUCOSE 76 MG/DL (70-104); MAGNESIUM 1.6 MG/DL (1.5-2.4); SODIUM 142 MMOL/L (135-145); TOTAL CARBON DIOXIDE 26.6 MMOL/L (24-32); eGFR > 90 ML/MIN
[2021-08-06 08:13] LABS: TROPONIN I 0.17 NG/ML (0.0-0.05)
[2021-08-06 08:15] LABS: POTASSIUM 2.8 MMOL/L (3.5-5.1)
[2021-08-06] MEDS ORDERED: aminophylline 250mg/10ml inj. IV PRN (08:50)
[2021-08-06] MEDS ORDERED: regadenoson 0.4mg/5ml syringe IV ONE (08:50)
[2021-08-06] MEDS ORDERED: metoprolol tartrate 1mg/ml inj IV PRN (08:50)
[2021-08-06] MEDS ORDERED: nitroGLYCERIN 0.4mg SUBLingual tab SL PRN (08:50)
[2021-08-06] MEDS: potassium Cl 40MEQ/1/2NS 520ml 520 ML IV PRN ×2 (09:16→09:59)
[2021-08-06] MEDS ORDERED: ALBU8HFA PO (10:37)
[2021-08-06] MEDS ORDERED: FLUT1DIS20 INH (10:38)
[2021-08-06] MEDS ORDERED: albuterol 2.5 MG/3 ML nebule NEB PRN (11:05)
[2021-08-06] MEDS ORDERED: baclofen 10mg tablet PO PRN (11:05)
[2021-08-06] MEDS ORDERED: meclizine 12.5mg tablet PO PRN (11:05)
--- NOTE | 2021-08-06 12:30 | NUR ---
PT FOUND WITH L AC IV PULLED OUT PT PULLED OUT DURING REPOSITIONING DURING SLEEP. UNKNOWN TIME HEPARIN GTT NOT INFUSING IN PT. PTS OTHER IV WITH KCL REPLACEMENT PAUSED AND STARTED AT OTHER IV SITE.
--- NOTE | 2021-08-06 12:45 | NUR ---
PT WITH NEW IV OF L UA, KCL REPLACEMENT INFUSING WELL HEPARIN GTT
[2021-08-06] MEDS: oxyCODONE/APAP 5-325mg tablet PO PRN ×2 (13:52→20:17)
[2021-08-06 14:10] LABS: CHOLESTEROL 109 MG/DL (0-200); HDL CHOLESTEROL 36 MG/DL (35-60); LDL CHOLESTEROL 54 MG/DL (50-100); TRIGLYCERIDES 137 MG/DL (20-135)
[2021-08-06] MEDS: normal saline 1000ml 1,000 ML IV SCH (14:56)
[2021-08-06] MEDS: albuterol 2.5 MG/3 ML nebule NEB SCH ×2 (15:00→19:57)
--- NOTE | 2021-08-06 15:45 | NUR ---
CONTACTED HOSPITALIST AND INFORMED DR. LAU PTS PTT 25 AND LOW LIKELY PTS IV WAS OUT AND INFUSING FOR UNKNOWN TIME. RECEIVED VO TO BOLUS HEPARIN DOSE ACCORDING TO PROTOCOL BUT TO CONTINUE HEPARIN GTT AT PREVIOUS REDUCED RATE FROM THIS AM.
[2021-08-06] MEDS: heparin 10,000 units/1 ML INJ IV PRN (16:39)
--- NOTE | 2021-08-06 17:00 | NUR ---
Patient transferred to unit. Vital signs stable and heparin infusing. No signs of distress noted. Pharmacy was contacted to bring up bag of 40meq potassium, but pharmacist states two doses were given in ER. 2 RN skin check complete. Tele monitor in place. Bed is locked, lowered, and side rails up x2. Bedside table, call light with in reach
[2021-08-06 17:38] VITALS: BP 135/73
[2021-08-06 18:00] VITALS: BP 137/86
--- NOTE | 2021-08-06 19:52 | NUR ---
Pt in bed AAOx4, reported pain to her left wrist. Heparin drips infusing well. No signs of bleeding noted nor reported. Bedside commode placed at bedside; pt instructed to use it instead of walking to the bathroom. Pt refused but encouraged. Call light and bedside table are within reach.
[2021-08-06] MEDS: budesonide 0.5mg/2ml UD nebule IH SCH (19:56)
[2021-08-06] MEDS ORDERED: non-formulary drug (Fluticasone/Salmeterol (Advair 250-50 Diskus) 1 PUFFS) INH SCH (20:00)
[2021-08-06] MEDS: carVEDilol 3.125mg tablet PO SCH (20:16)
[2021-08-06] MEDS ORDERED: gabapentin 100mg capsule PO SCH (21:00)
[2021-08-06 22:00] VITALS: BP 143/83
[2021-08-07] MEDS: heparin 25,000 UNIT/250ml bag 250 ML IV SCH (01:21)
[2021-08-07] MEDS: heparin 10,000 units/1 ML INJ IV PRN (01:25)
[2021-08-07 01:58] VITALS: BP 134/64
[2021-08-07] MEDS: albuterol 2.5 MG/3 ML nebule NEB SCH ×2 (03:00→09:00)
[2021-08-07 06:00] VITALS: BP 133/69
[2021-08-07] MEDS ORDERED: FLUoxetine 20mg capsule PO SCH (08:00)
[2021-08-07] MEDS ORDERED: pantoprazole 40mg Tablet.DR PO SCH (08:00)
[2021-08-07] MEDS ORDERED: atorvastatin 20mg tablet PO SCH (08:00)
[2021-08-07] MEDS: K and/or MAG REPLACEMENT MC SCH (08:00)
[2021-08-07] MEDS ORDERED: clopidogrel 75mg tablet PO SCH (08:00)
[2021-08-07] MEDS ORDERED: aspirin 81mg, enteric-coated 1 TAB TABLET.DR PO SCH (08:00)
[2021-08-07] MEDS: morphine 2 MG/ML inj. syringe IV PRN (08:45)
[2021-08-07 08:56] LABS: ALBUMIN 3.2 G/DL (3.4-5.0); ANION GAP 9 (8-16); BASOPHILS % (AUTO) 0.6 % (0-1); BLOOD UREA NITROGEN 6 MG/DL (7-18); BUN/CREATININE RATIO 11.3 (6.6-38.0); CALCIUM 8.2 MG/DL (8.5-10.1); CHLORIDE 108 MMOL/L (99-107); CREATININE 0.53 MG/DL (0.40-0.90); EOSINOPHILS # (AUTO) 0.1 X10'3 (0-0.9); EOSINOPHILS % (AUTO) 1.3 % (0-6); GLUCOSE 88 MG/DL (70-104); HEMATOCRIT 35.9 % (35.0-45.0); HEMOGLOBIN 12.3 g/dl (12.0-16.0); LYMPHOCYTES # (AUTO) 1.9 X10'3 (1.1-4.8); MAGNESIUM 1.6 MG/DL (1.5-2.4); MEAN CORPUSCULAR HEMOGLOBIN 30.9 PG (27.0-31.0); MEAN CORPUSCULAR HGB CONC 34.3 g/dL (33.0-36.5); MEAN CORPUSCULAR VOLUME 90.1 FL (78-98); MEAN PLATELET VOLUME 9.7 FL (7.4-10.4); MONOCYTES # (AUTO) 0.3 X10'3 (0-0.9); MONOCYTES % (AUTO) 4.1 % (2-12); NEUTROPHILS # (AUTO) 5.2 X10'3 (1.8-7.7); PLATELET COUNT 192 X10'3 (140-440); POTASSIUM 3.6 MMOL/L (3.5-5.1); RED BLOOD COUNT 3.98 X10'6 (4.20-5.60); RED CELL DISTRIBUTION WIDTH 14.8 % (11.5-14.5); SODIUM 143 MMOL/L (135-145); TOTAL CARBON DIOXIDE 25.8 MMOL/L (24-32); WHITE BLOOD COUNT 7.5 X10'3 (4.5-11.0); eGFR > 90 ML/MIN
[2021-08-07 08:59] LABS: PARTIAL THROMBOPLASTIN TIME 36 SECONDS (22-32)
[2021-08-07] MEDS: budesonide 0.5mg/2ml UD nebule IH SCH (09:00)
[2021-08-07] MEDS: carVEDilol 3.125mg tablet PO SCH (09:01)
[2021-08-07] MEDS ORDERED: CLOP75TA34 PO ×2 (09:46)
[2021-08-07] MEDS ORDERED: COR3.125T PO ×2 (09:46)
[2021-08-07] MEDS: oxyCODONE/APAP 5-325mg tablet PO PRN (11:10)
--- NOTE | 2021-08-07 13:45 | NUR ---
Pt stable for discharge per MD order, all discharge instructions reviewed with patient and all questions answered. New prescriptions faxed to pharmacy. PIV discontinued, cannula intact. Telemetry discontinued, television station manager notified. All belongings collected and sent with patient. Pt picked up by [facility]- transport by personnel, wheeled to lobby by hospital staff.
== END 2021-08-07 16:54 | disposition home or self-care (01) | DRG 190 ==
LOC: ER 19:32 → ED HOLD 21:15 → EDBEDREQ 08-06 15:22 → PCU 3S 08-06 17:13
PROVIDERS: ADMIT Internal Medicine; ATTEND Family Medicine
DX: I21.4 Non-ST elevation (NSTEMI) myocardial infarction (principal); E87.0 Hyperosmolality and hypernatremia; E78.5 Hyperlipidemia, unspecified; I25.119 Atherosclerotic heart disease of native coronary artery with unspecified angina pectoris; K21.9 Gastro-esophageal reflux disease without esophagitis; E87.6 Hypokalemia; M54.9 Dorsalgia, unspecified; G89.4 Chronic pain syndrome; F32.A Depression, unspecified; I48.0 Paroxysmal atrial fibrillation; I69.320 Aphasia following cerebral infarction; Z88.0 Allergy status to penicillin; I25.2 Old myocardial infarction; Z90.49 Acquired absence of other specified parts of digestive tract; Z90.710 Acquired absence of both cervix and uterus; Z88.2 Allergy status to sulfonamides; Z88.5 Allergy status to narcotic agent; Z79.899 Other long term (current) drug therapy
CPT/HCPCS: 36415; 71045; 73110; 80048; 80053; 80061; 83735; 83880; 84484; 85025; 85610; 85730; 92508; 92616; 93005; 93306; 94760; 96365; 96368; 96375; 96376; 97110; 97116; 97162; 99285; G0378; J1644; J2270; J3480; J7030

== ENCOUNTER 2021-08-09 16:06 | Inpatient (IN) | payer MEDICAID ==
[~2021-08-09] VITALS: Ht 162.6 cm; Wt 42.9 kg
[~2021-08-09 16:06] MED LIST changes: -ALBU18HF2 INH; +ALBU8HFA PO; -ASPI-1 PEG; +ASPI-100 PO; -ATOR20TA66 PEG; +ATOR40TA72 PO; +BACL20TA PO; +CLOP75TA34 PO; +COR3.125T PO; -ESCI5TAB PEG; -FAMO20TA8 PEG; +FLUO-167 PO; +FLUT1DIS20 INH; -FLUT1DIS4 INH; +GABA-530 PO; +MECL-159 PO; -NICO-631 TD; -NYST1000 PO; +OMEP-50 PO; +PER5325T PO
[2021-08-09] MEDS ORDERED: iohexol 350MG/ML 100ml bottle IV ONE (16:14)
[2021-08-09] MEDS ORDERED: CLOP75TA34 PO (16:15)
[2021-08-09] MEDS ORDERED: CARV3.123 PO (16:15)
[2021-08-09 16:41] LABS: BASOPHILS % (AUTO) 0.5 % (0-1); EOSINOPHILS # (AUTO) 0.1 X10'3 (0-0.9); HEMATOCRIT 41.9 % (35.0-45.0); HEMOGLOBIN 14.2 g/dl (12.0-16.0); LYMPHOCYTES # (AUTO) 2.6 X10'3 (1.1-4.8); LYMPHOCYTES % (AUTO) 39.4 % (21-51); MEAN CORPUSCULAR HEMOGLOBIN 31.1 PG (27.0-31.0); MEAN CORPUSCULAR HGB CONC 33.8 g/dL (33.0-36.5); MEAN PLATELET VOLUME 9.5 FL (7.4-10.4); MONOCYTES # (AUTO) 0.4 X10'3 (0-0.9); MONOCYTES % (AUTO) 6.4 % (2-12); NEUTROPHILS # (AUTO) 3.5 X10'3 (1.8-7.7); NEUTROPHILS % (AUTO) 52.7 % (42-75); PLATELET COUNT 262 X10'3 (140-440); RED BLOOD COUNT 4.55 X10'6 (4.20-5.60); RED CELL DISTRIBUTION WIDTH 15.5 % (11.5-14.5); WHITE BLOOD COUNT 6.6 X10'3 (4.5-11.0)
[2021-08-09 16:42] LABS: PARTIAL THROMBOPLASTIN TIME 25 SECONDS (22-32)
[2021-08-09 16:44] LABS: ALANINE AMINOTRANSFERASE 24 U/L (12-78); ALBUMIN 3.8 G/DL (3.4-5.0); ALKALINE PHOSPHATASE 81 IU/L (46-116); ANION GAP 21 (8-16); ASPARTATE AMINO TRANSFERASE 14 U/L (10-37); BILIRUBIN,TOTAL 0.4 MG/DL (0.1-1.0); BLOOD UREA NITROGEN 6 MG/DL (7-18); BUN/CREATININE RATIO 5.8 (6.6-38.0); CALCIUM 9.1 MG/DL (8.5-10.1); CHLORIDE 105 MMOL/L (99-107); CREATININE 1.04 MG/DL (0.40-0.90); GLUCOSE 166 MG/DL (70-104); POTASSIUM 3.5 MMOL/L (3.5-5.1); SODIUM 140 MMOL/L (135-145); TOTAL PROTEIN 7.7 G/DL (6.4-8.2); eGFR 54 ML/MIN
[2021-08-09 16:49] LABS: TOTAL CARBON DIOXIDE 14.5 MMOL/L (24-32)
[2021-08-09] MEDS ORDERED: levetiracetam inj 750 MG in normal saline 100ml IV soln 92.5 ML IV STA (17:10)
[2021-08-09] MEDS ORDERED: LORazepam 2 mg/ml vial IV ONE (17:30)
--- NOTE | 2021-08-09 18:00 | NUR ---
After long discussion daughter Nga declined the tpa([employer])
[2021-08-09] MEDS ORDERED: normal saline 1000ML IV soln IV ONE (18:05)
[2021-08-09] MEDS ORDERED: bisacodyl 10mg suppository rectal RC PRN (18:10)
[2021-08-09] MEDS ORDERED: morphine 2 MG/ML inj. syringe IV PRN (18:10)
[2021-08-09] MEDS ORDERED: potassium Cl 20 mEq SR tablet PO PRN (18:10)
[2021-08-09] MEDS ORDERED: magnesium hydroxide 30ml (MOM) UD suspension PO PRN (18:10)
[2021-08-09] MEDS ORDERED: acetaminophen 325mg tablet PO PRN ×2 (18:10)
[2021-08-09] MEDS ORDERED: LORazepam 2 mg/ml vial IV PRN (18:10)
[2021-08-09] MEDS ORDERED: magnesium 2GM in 50ml NS 50 ML IV PRN (18:10)
[2021-08-09] MEDS ORDERED: magnesium 4gm in 100ml NS 100 ML IV PRN (18:10)
[2021-08-09] MEDS ORDERED: potassium Cl 40MEQ/1/2NS 520ml 520 ML IV PRN ×2 (18:10)
[2021-08-09] MEDS ORDERED: ondansetron/PF 4mg/2ml inj IV PRN (18:10)
[2021-08-09] MEDS ORDERED: magnesium Cl slow-release 64mg tablet PO PRN (18:10)
[2021-08-09] MEDS: normal saline 1000ml 1,000 ML IV SCH (18:10)
[2021-08-09] MEDS ORDERED: mag hydrox/Alum hydrox/simeth 30ml oral suspension PO PRN (18:10)
[2021-08-09] MEDS ORDERED: PERFLUTREN PROTEIN-A MICROSPHR (Optison) 0.22 MG/ML 3ML VIAL IV ONE (18:35)
[2021-08-09] MEDS ORDERED: albuterol 2.5 MG/3 ML nebule NEB PRN ×2 (18:50→18:54)
[2021-08-09] MEDS ORDERED: meclizine 12.5mg tablet PO PRN (19:00)
[2021-08-09] MEDS ORDERED: baclofen 10mg tablet PO PRN (19:00)
[2021-08-09] MEDS: CefTRIAXone/D5W-Rocephin 1gm 50 ML IV SCH (19:26)
[2021-08-09] MEDS: docusate sod 100mg capsule PO SCH (19:27)
[2021-08-09] MEDS: gabapentin 100mg capsule PO SCH (19:27)
[2021-08-09] MEDS: carVEDilol 3.125mg tablet PO SCH (19:27)
[2021-08-09] MEDS: K and/or MAG REPLACEMENT MC SCH (19:28)
[2021-08-09] MEDS: budesonide 0.5mg/2ml UD nebule IH SCH (20:15)
[2021-08-10 01:01] LABS: BASOPHILS % (AUTO) 0.6 % (0-1); EOSINOPHILS # (AUTO) 0.1 X10'3 (0-0.9); EOSINOPHILS % (AUTO) 0.9 % (0-6); HEMATOCRIT 35.7 % (35.0-45.0); HEMOGLOBIN 12.2 g/dl (12.0-16.0); LYMPHOCYTES # (AUTO) 2.2 X10'3 (1.1-4.8); LYMPHOCYTES % (AUTO) 29.6 % (21-51); MEAN CORPUSCULAR HEMOGLOBIN 31.3 PG (27.0-31.0); MEAN CORPUSCULAR HGB CONC 34.3 g/dL (33.0-36.5); MEAN CORPUSCULAR VOLUME 91.1 FL (78-98); MEAN PLATELET VOLUME 9.1 FL (7.4-10.4); MONOCYTES # (AUTO) 0.4 X10'3 (0-0.9); MONOCYTES % (AUTO) 4.9 % (2-12); NEUTROPHILS # (AUTO) 4.7 X10'3 (1.8-7.7); PLATELET COUNT 212 X10'3 (140-440); RED BLOOD COUNT 3.91 X10'6 (4.20-5.60); RED CELL DISTRIBUTION WIDTH 15.2 % (11.5-14.5); WHITE BLOOD COUNT 7.3 X10'3 (4.5-11.0)
[2021-08-10 01:13] LABS: ALANINE AMINOTRANSFERASE 17 U/L (12-78); ALBUMIN/GLOBULIN RATIO 0.9 (1.1-1.5); ALKALINE PHOSPHATASE 62 IU/L (46-116); ANION GAP 14 (8-16); ASPARTATE AMINO TRANSFERASE 14 U/L (10-37); BILIRUBIN,TOTAL 0.3 MG/DL (0.1-1.0); BLOOD UREA NITROGEN 6 MG/DL (7-18); BUN/CREATININE RATIO 10.3 (6.6-38.0); CALCIUM 7.9 MG/DL (8.5-10.1); CHLORIDE 110 MMOL/L (99-107); CREATININE 0.58 MG/DL (0.40-0.90); GLUCOSE 73 MG/DL (70-104); MAGNESIUM 1.6 MG/DL (1.5-2.4); POTASSIUM 3.5 MMOL/L (3.5-5.1); SODIUM 142 MMOL/L (135-145); TOTAL PROTEIN 6.3 G/DL (6.4-8.2); eGFR > 90 ML/MIN
[2021-08-10] MEDS: normal saline 1000ml 1,000 ML IV SCH ×2 (04:10→14:07)
[2021-08-10] MEDS ORDERED: clopidogrel 75mg tablet PO SCH (08:00)
[2021-08-10] MEDS: K and/or MAG REPLACEMENT MC SCH ×2 (08:00→20:00)
[2021-08-10] MEDS: levetiracetam inj 750 MG in normal saline 100ml IV soln 92.5 ML IV SCH ×2 (08:00→18:59)
[2021-08-10] MEDS: pantoprazole 40 MG vial IV SCH (08:35)
[2021-08-10] MEDS: clopidogrel 75mg tablet PO SCH (08:36)
[2021-08-10] MEDS: atorvastatin 20mg tablet PO SCH (08:36)
[2021-08-10] MEDS: aspirin 81mg tab.chew PO SCH (08:36)
[2021-08-10] MEDS: FLUoxetine 20mg capsule PO SCH (08:36)
[2021-08-10] MEDS: docusate sod 100mg capsule PO SCH ×2 (08:36→20:04)
[2021-08-10] MEDS: carVEDilol 3.125mg tablet PO SCH ×2 (08:36→20:04)
[2021-08-10] MEDS: CefTRIAXone/D5W-Rocephin 1gm 50 ML IV SCH (08:36)
--- NOTE | 2021-08-10 11:06 | NUR ---
pt to mri
[2021-08-10] MEDS: budesonide 0.5mg/2ml UD nebule IH SCH ×2 (12:57→19:20)
--- NOTE | 2021-08-10 13:37 | NUR ---
asked pt if she was hunrgy or wanted lunch pt indicated no
--- NOTE | 2021-08-10 13:40 | NUR ---
medications given in ct scan
--- NOTE | 2021-08-10 15:43 | NUR ---
pt turned herself to her right side and is sleeping.
[2021-08-10 16:46] VITALS: BP 126/57
--- NOTE | 2021-08-10 16:57 | NUR ---
Patient oriented to room and call light and is in no acute distress. Pharmacy called and they will send toñora due at 1700 [facility].
[2021-08-10 18:00] VITALS: BP 115/67
--- NOTE | 2021-08-10 18:33 | NUR ---
Problems reprioritized. Patient report given, questions answered & plan of care reviewed with Marilynn Subramanian RN. Patient resting in no acute distress.
--- NOTE | 2021-08-10 18:35 | NUR ---
Patient in room PCU 3016. I have received report from FADUMO HALLMAN and had the opportunity to ask questions and assume patient care.
[2021-08-10] MEDS: lactobacillus rhamnosus 10,000 MMU CELLS/CAPSULE PO SCH (20:04)
[2021-08-10] MEDS: gabapentin 100mg capsule PO SCH (20:06)
[2021-08-10] MEDS: oxyCODONE/APAP 5-325mg tablet PO PRN (20:07)
--- NOTE | 2021-08-10 21:00 | NUR ---
UNABLE TO DART PATIENT, DON'T ANSWER QUESTION HAVING A HARD TIME TALKING.
[2021-08-10 22:00] VITALS: BP 117/68
[2021-08-11] MEDS: normal saline 1000ml 1,000 ML IV SCH ×3 (01:19→12:18)
[2021-08-11] MEDS: morphine 2 MG/ML inj. syringe IV PRN ×2 (01:22→23:35)
[2021-08-11 02:00] VITALS: BP 131/65
[2021-08-11] MEDS: levetiracetam inj 750 MG in normal saline 100ml IV soln 92.5 ML IV SCH ×2 (05:24→16:44)
[2021-08-11 06:00] VITALS: BP 116/53
--- NOTE | 2021-08-11 06:30 | NUR ---
Problems reprioritized. Patient report given, questions answered & plan of care reviewed with REGULO HALLMAN.
--- NOTE | 2021-08-11 06:59 | NUR ---
Patient in room PCU 3016. I have received report from EVONNE DOUGLASS RN and had the opportunity to ask questions and assume patient care.
[2021-08-11] MEDS: lactobacillus rhamnosus 10,000 MMU CELLS/CAPSULE PO SCH ×2 (08:00→20:24)
[2021-08-11] MEDS: budesonide 0.5mg/2ml UD nebule IH SCH ×2 (08:00→19:03)
[2021-08-11] MEDS: K and/or MAG REPLACEMENT MC SCH ×2 (08:00→20:04)
[2021-08-11 08:24] LABS: BASOPHILS % (AUTO) 0.7 % (0-1); EOSINOPHILS # (AUTO) 0.2 X10'3 (0-0.9); EOSINOPHILS % (AUTO) 4.1 % (0-6); HEMATOCRIT 33.7 % (35.0-45.0); HEMOGLOBIN 11.7 g/dl (12.0-16.0); LYMPHOCYTES # (AUTO) 2.3 X10'3 (1.1-4.8); LYMPHOCYTES % (AUTO) 39.2 % (21-51); MEAN CORPUSCULAR HEMOGLOBIN 31.8 PG (27.0-31.0); MEAN CORPUSCULAR HGB CONC 34.7 g/dL (33.0-36.5); MEAN CORPUSCULAR VOLUME 91.7 FL (78-98); MEAN PLATELET VOLUME 9.6 FL (7.4-10.4); MONOCYTES # (AUTO) 0.4 X10'3 (0-0.9); MONOCYTES % (AUTO) 6.1 % (2-12); NEUTROPHILS # (AUTO) 2.9 X10'3 (1.8-7.7); NEUTROPHILS % (AUTO) 49.9 % (42-75); PLATELET COUNT 184 X10'3 (140-440); RED BLOOD COUNT 3.68 X10'6 (4.20-5.60); RED CELL DISTRIBUTION WIDTH 15.3 % (11.5-14.5); WHITE BLOOD COUNT 5.8 X10'3 (4.5-11.0)
[2021-08-11 08:39] LABS: ALANINE AMINOTRANSFERASE 17 U/L (12-78); ALBUMIN 2.9 G/DL (3.4-5.0); ALKALINE PHOSPHATASE 56 IU/L (46-116); ANION GAP 13 (8-16); ASPARTATE AMINO TRANSFERASE 18 U/L (10-37); BILIRUBIN,TOTAL 0.3 MG/DL (0.1-1.0); BLOOD UREA NITROGEN 4 MG/DL (7-18); BUN/CREATININE RATIO 7.7 (6.6-38.0); CALCIUM 7.9 MG/DL (8.5-10.1); CHLORIDE 113 MMOL/L (99-107); CREATININE 0.52 MG/DL (0.40-0.90); GLUCOSE 63 MG/DL (70-104); MAGNESIUM 1.6 MG/DL (1.5-2.4); POTASSIUM 3.1 MMOL/L (3.5-5.1); SODIUM 144 MMOL/L (135-145); TOTAL CARBON DIOXIDE 18.5 MMOL/L (24-32); TOTAL PROTEIN 5.9 G/DL (6.4-8.2); eGFR > 90 ML/MIN
[2021-08-11] MEDS: pantoprazole 40 MG vial IV SCH (09:24)
[2021-08-11] MEDS: CefTRIAXone/D5W-Rocephin 1gm 50 ML IV SCH (09:24)
[2021-08-11] MEDS: FLUoxetine 20mg capsule PO SCH (09:25)
[2021-08-11] MEDS: atorvastatin 20mg tablet PO SCH (09:25)
[2021-08-11] MEDS: potassium Cl 20 mEq SR tablet PO PRN ×3 (09:25→20:23)
[2021-08-11] MEDS: docusate sod 100mg capsule PO SCH ×2 (09:26→20:24)
[2021-08-11] MEDS: carVEDilol 3.125mg tablet PO SCH ×2 (09:26→20:23)
[2021-08-11] MEDS: clopidogrel 75mg tablet PO SCH (09:26)
[2021-08-11] MEDS: oxyCODONE/APAP 5-325mg tablet PO PRN ×2 (09:26→16:52)
[2021-08-11] MEDS: aspirin 81mg tab.chew PO SCH (09:26)
[2021-08-11 11:00] VITALS: BP 114/55
[2021-08-11 15:00] VITALS: BP 107/49
--- NOTE | 2021-08-11 16:06 | NUR ---
Low BMI screen: Pt admit DX new onset seizure, concerns for possible stroke, MAKENZIE, depression, and expressive aphasia per EMR. Advanced to full liquids diet per DAIRY FROZEN MANAGER/MD recs refusing initial meals since PO diet yesterday. BMI 16.2 w/ bed scaled wt and noted pt ht hx fluctuates between 60-66in as well as wt documentation hx changing between 42-61kg past year w/ May admit this year bed scaled wt changing from 41.7-61kg in few day period that admit. Pt hx PEG May this year and discharged w/ bolus feeds nutrition recs in addition to DAIRY FROZEN MANAGER PO recs; PEG has now been removed per EMR. Pt seen by RD reports unsure if any wt loss hx w/ recent decreased appetite and current low appetite on full liquids; is agreeable to chocolate Ensure Enlive TIDWM. RD notified MD of ONS recs. Pt has no visible signs of muscle/fat wasting during RD likely maintains stable low stature at baseline, no significant weakness present, and no edema. Lacks minimum malnutrition criteria at this time. Will monitor for further malnutrition criteria and nutrition intervention needs this admit. Addendum: 08/11/21 at [address] Amended: Links added.
[2021-08-11 18:00] VITALS: BP 135/59
[2021-08-11] MEDS: lactose-reduced food (Ensure Enlive) - 237ml bottle PO SCH (18:00)
[2021-08-11] MEDS: gabapentin 100mg capsule PO SCH (20:23)
[2021-08-11] MEDS: levetiracetam inj 500 MG in normal saline 100ml IV soln 95 ML IV SCH (21:07)
[2021-08-11 22:00] VITALS: BP 133/65
--- NOTE | 2021-08-12 01:26 | NUR ---
reviewed and edited SRN assessment
[2021-08-12 02:00] VITALS: BP 135/66
[2021-08-12] MEDS: normal saline 1000ml 1,000 ML IV SCH ×2 (02:07→20:59)
[2021-08-12 06:00] VITALS: BP 131/67
--- NOTE | 2021-08-12 06:29 | NUR ---
Problems reprioritized. Patient report given, questions answered & plan of care reviewed with Mayte.
[2021-08-12 06:39] LABS: BASOPHILS % (AUTO) 0.7 % (0-1); EOSINOPHILS # (AUTO) 0.3 X10'3 (0-0.9); EOSINOPHILS % (AUTO) 5.1 % (0-6); HEMOGLOBIN 11.9 g/dl (12.0-16.0); LYMPHOCYTES # (AUTO) 2.1 X10'3 (1.1-4.8); MEAN CORPUSCULAR HGB CONC 35.1 g/dL (33.0-36.5); MEAN CORPUSCULAR VOLUME 91.2 FL (78-98); MEAN PLATELET VOLUME 9.3 FL (7.4-10.4); MONOCYTES # (AUTO) 0.3 X10'3 (0-0.9); MONOCYTES % (AUTO) 5.4 % (2-12); NEUTROPHILS % (AUTO) 51.8 % (42-75); PLATELET COUNT 204 X10'3 (140-440); RED BLOOD COUNT 3.73 X10'6 (4.20-5.60); RED CELL DISTRIBUTION WIDTH 14.9 % (11.5-14.5); WHITE BLOOD COUNT 5.8 X10'3 (4.5-11.0)
[2021-08-12 07:09] LABS: ALANINE AMINOTRANSFERASE 15 U/L (12-78); ALBUMIN 2.9 G/DL (3.4-5.0); ALKALINE PHOSPHATASE 60 IU/L (46-116); ANION GAP 15 (8-16); ASPARTATE AMINO TRANSFERASE 16 U/L (10-37); BILIRUBIN,TOTAL 0.3 MG/DL (0.1-1.0); BLOOD UREA NITROGEN 2 MG/DL (7-18); BUN/CREATININE RATIO 4.8 (6.6-38.0); CALCIUM 8.1 MG/DL (8.5-10.1); CHLORIDE 111 MMOL/L (99-107); CREATININE 0.42 MG/DL (0.40-0.90); GLUCOSE 80 MG/DL (70-104); MAGNESIUM 1.5 MG/DL (1.5-2.4); POTASSIUM 3.4 MMOL/L (3.5-5.1); SODIUM 144 MMOL/L (135-145); TOTAL CARBON DIOXIDE 18.5 MMOL/L (24-32); TOTAL PROTEIN 5.9 G/DL (6.4-8.2); eGFR > 90 ML/MIN
[2021-08-12] MEDS: budesonide 0.5mg/2ml UD nebule IH SCH ×2 (08:00→19:55)
[2021-08-12] MEDS: K and/or MAG REPLACEMENT MC SCH ×2 (08:00→20:00)
[2021-08-12] MEDS: lactose-reduced food (Ensure Enlive) - 237ml bottle PO SCH ×3 (08:00→18:00)
[2021-08-12] MEDS: atorvastatin 20mg tablet PO SCH (09:16)
[2021-08-12] MEDS: docusate sod 100mg capsule PO SCH (09:16)
[2021-08-12] MEDS: lactobacillus rhamnosus 10,000 MMU CELLS/CAPSULE PO SCH ×2 (09:16→20:55)
[2021-08-12] MEDS: clopidogrel 75mg tablet PO SCH (09:16)
[2021-08-12] MEDS: aspirin 81mg tab.chew PO SCH (09:16)
[2021-08-12] MEDS: carVEDilol 3.125mg tablet PO SCH ×2 (09:16→20:55)
[2021-08-12] MEDS: FLUoxetine 20mg capsule PO SCH (09:17)
[2021-08-12] MEDS: pantoprazole 40mg Tablet.DR PO SCH (09:17)
[2021-08-12] MEDS: CefTRIAXone/D5W-Rocephin 1gm 50 ML IV SCH (09:17)
[2021-08-12] MEDS: levetiracetam inj 500 MG in normal saline 100ml IV soln 95 ML IV SCH (09:17)
[2021-08-12] MEDS: morphine 2 MG/ML inj. syringe IV PRN ×2 (10:34→18:49)
[2021-08-12] MEDS: potassium Cl 20 mEq SR tablet PO PRN (10:37)
[2021-08-12 11:00] VITALS: BP 136/68
[2021-08-12 15:00] VITALS: BP 108/60
[2021-08-12 18:00] VITALS: BP 129/66
--- NOTE | 2021-08-12 18:29 | NUR ---
Patient in room PCU 3015. I have received report from RAMSEY HALLMAN and had the opportunity to ask questions and assume patient care.
--- NOTE | 2021-08-12 19:01 | NUR ---
Problems reprioritized. Patient report given, questions answered & plan of care reviewed with Prudence RN.
[2021-08-12] MEDS: docusate sodium 100mg/10ml UD cup PO SCH (20:55)
[2021-08-12] MEDS: levetiracetam 250mg tablet PO SCH (20:55)
[2021-08-12] MEDS: gabapentin 100mg capsule PO SCH (20:55)
[2021-08-12 22:00] VITALS: BP 141/70
[2021-08-13 02:00] VITALS: BP 131/66
[2021-08-13] MEDS: morphine 2 MG/ML inj. syringe IV PRN (02:42)
--- NOTE | 2021-08-13 06:30 | NUR ---
Problems reprioritized. Patient report given, questions answered & plan of care reviewed with DALJIT HALLMAN.
[2021-08-13 06:36] LABS: BASOPHILS % (AUTO) 0.7 % (0-1); EOSINOPHILS # (AUTO) 0.2 X10'3 (0-0.9); EOSINOPHILS % (AUTO) 3.7 % (0-6); HEMATOCRIT 35.2 % (35.0-45.0); HEMOGLOBIN 12.2 g/dl (12.0-16.0); LYMPHOCYTES # (AUTO) 1.8 X10'3 (1.1-4.8); LYMPHOCYTES % (AUTO) 35.5 % (21-51); MEAN CORPUSCULAR HEMOGLOBIN 31.4 PG (27.0-31.0); MEAN CORPUSCULAR HGB CONC 34.7 g/dL (33.0-36.5); MEAN CORPUSCULAR VOLUME 90.3 FL (78-98); MEAN PLATELET VOLUME 9.6 FL (7.4-10.4); MONOCYTES # (AUTO) 0.3 X10'3 (0-0.9); MONOCYTES % (AUTO) 5.8 % (2-12); NEUTROPHILS # (AUTO) 2.8 X10'3 (1.8-7.7); NEUTROPHILS % (AUTO) 54.3 % (42-75); PLATELET COUNT 206 X10'3 (140-440); RED CELL DISTRIBUTION WIDTH 14.8 % (11.5-14.5); WHITE BLOOD COUNT 5.2 X10'3 (4.5-11.0)
--- NOTE | 2021-08-13 06:41 | NUR ---
Patient in room PCU 3015B. I have received report from LEXX PERAZA and had the opportunity to ask questions and assume patient care.
[2021-08-13 07:00] VITALS: BP 132/70
[2021-08-13 07:00] LABS: ALANINE AMINOTRANSFERASE 18 U/L (12-78); ALKALINE PHOSPHATASE 61 IU/L (46-116); ANION GAP 13 (8-16); ASPARTATE AMINO TRANSFERASE 17 U/L (10-37); BILIRUBIN,TOTAL 0.4 MG/DL (0.1-1.0); BLOOD UREA NITROGEN 2 MG/DL (7-18); BUN/CREATININE RATIO 4.9 (6.6-38.0); CALCIUM 8.1 MG/DL (8.5-10.1); CHLORIDE 109 MMOL/L (99-107); CREATININE 0.41 MG/DL (0.40-0.90); GLUCOSE 79 MG/DL (70-104); MAGNESIUM 1.6 MG/DL (1.5-2.4); POTASSIUM 3.2 MMOL/L (3.5-5.1); SODIUM 144 MMOL/L (135-145); TOTAL CARBON DIOXIDE 21.9 MMOL/L (24-32); TOTAL PROTEIN 5.9 G/DL (6.4-8.2); eGFR > 90 ML/MIN
[2021-08-13] MEDS: lactose-reduced food (Ensure Enlive) - 237ml bottle PO SCH (08:00)
[2021-08-13] MEDS: docusate sodium 100mg/10ml UD cup PO SCH (08:00)
--- NOTE | 2021-08-13 09:40 | NUR ---
Initial: Pt admit DX new onset seizure, concerns for possible stroke, MAKENZIE, depression, and expressive aphasia per EMR. Pt currently on Full liquid diet per STEEL BOX TOE INSERTER recs and refusing all meals, pt also refusing ONS. Pt w/ previous hx of PEG feedings, d/w RN recommendations for TF if MD agreeable given pt refusal of all meals. LBM 08/10 previously receiving routine colace though was stopped 08/12. Will continue to monitor and make recommendations as appropriate. Recs: 1. Continuous Full liquid diet per STEEL BOX TOE INSERTER/MD recs; advance as medically indicated to regular 2. Ensure Enlive TID; if pt continues to refuse consider d/c ONS 3. IF pt continues to refuse meals, Continuous TF using Jevity at 50ml/hr 4. Bowel care per rx 5. Weekly wt Addendum: 08/13/21 at [address] Amended: Links added.
[2021-08-13] MEDS: levetiracetam 250mg tablet PO SCH (09:43)
[2021-08-13] MEDS: aspirin 81mg tab.chew PO SCH (09:43)
[2021-08-13] MEDS: lactobacillus rhamnosus 10,000 MMU CELLS/CAPSULE PO SCH (09:44)
[2021-08-13] MEDS: atorvastatin 20mg tablet PO SCH (09:44)
[2021-08-13] MEDS: clopidogrel 75mg tablet PO SCH (09:44)
[2021-08-13] MEDS: pantoprazole 40mg Tablet.DR PO SCH (09:44)
[2021-08-13] MEDS: FLUoxetine 20mg capsule PO SCH (09:44)
[2021-08-13] MEDS: oxyCODONE/APAP 5-325mg tablet PO PRN (09:45)
[2021-08-13] MEDS: carVEDilol 3.125mg tablet PO SCH (09:48)
[2021-08-13] MEDS: CefTRIAXone/D5W-Rocephin 1gm 50 ML IV SCH (09:54)
[2021-08-13 11:00] VITALS: BP 137/68
[2021-08-13] MEDS ORDERED: LEVE500T PO (11:38)
--- NOTE | 2021-08-13 13:43 | NUR ---
PATIENT STABLE AND APPROPRIATE FOR DISCHARGE, IVS TAKEN OUT, TELE REMOVED, ALL BELONGINGS SENT WITH PATIENT, EDUCATION GIVEN, NEW MEDS E-SCRIPTED TO PREFERRED PHARMACY, PATIENT TAKEN TO LOBBY IN A WHEELCHAIR TO AN AWAITING CAR WHERE NIECE WILL TAKE PATIENT HOME
== END 2021-08-13 13:42 | disposition home health service (06) | DRG 53 ==
LOC: ER 16:06 → ED HOLD 18:14 → PCU 3S 08-10 16:40
PROVIDERS: ADMIT Family Medicine; ATTEND Family Medicine
PROC: B3251ZZ Computerized Tomography (CT Scan) of Bilateral Common Carotid Arteries using Low Osmolar Contrast (ICD-10-PCS; 2021-08-09)
PROC: B32G1ZZ Computerized Tomography (CT Scan) of Bilateral Vertebral Arteries using Low Osmolar Contrast (ICD-10-PCS; 2021-08-09)
PROC: B32R1ZZ Computerized Tomography (CT Scan) of Intracranial Arteries using Low Osmolar Contrast (ICD-10-PCS; 2021-08-09)
PROC: B3281ZZ Computerized Tomography (CT Scan) of Bilateral Internal Carotid Arteries using Low Osmolar Contrast (ICD-10-PCS; 2021-08-09)
PROC: 4A10X4Z Monitoring of Central Nervous Electrical Activity, External Approach (ICD-10-PCS; principal; 2021-08-10)
DX: R56.9 Unspecified convulsions (principal); E87.2 Acidosis; N17.9 Acute kidney failure, unspecified; G83.84 Todd's paralysis (postepileptic); I69.351 Hemiplegia and hemiparesis following cerebral infarction affecting right dominant side; F32.A Depression, unspecified; G93.89 Other specified disorders of brain; I10 Essential (primary) hypertension; I20.9 Angina pectoris, unspecified; I65.22 Occlusion and stenosis of left carotid artery; M25.511 Pain in right shoulder; I48.91 Unspecified atrial fibrillation; G89.29 Other chronic pain; E78.5 Hyperlipidemia, unspecified; Z90.710 Acquired absence of both cervix and uterus; I69.320 Aphasia following cerebral infarction; Z88.0 Allergy status to penicillin; Z88.2 Allergy status to sulfonamides; Z88.1 Allergy status to other antibiotic agents; Z88.6 Allergy status to analgesic agent; Z79.899 Other long term (current) drug therapy; Z79.82 Long term (current) use of aspirin; Z79.02 Long term (current) use of antithrombotics/antiplatelets
CPT/HCPCS: 36415; 70450; 70496; 70498; 70551; 71045; 73030; 80053; 82948; 83605; 83735; 84145; 85025; 85610; 85730; 86885; 86900; 86901; 87040; 87081; 92508; 92616; 93005; 93308; 94640; 94760; 95816; 96365; 97116; 97161; 97530; 99285; C9113; G0378; J0696; J1953; J2270; J7030; J7626; Q9967

== ENCOUNTER 2021-08-16 19:43 | Inpatient (IN) | payer MEDICAID ==
[~2021-08-16] VITALS: Ht 154.9 cm; Wt 47.7 kg
[~2021-08-16 19:43] MED LIST changes: +CARV3.123 PO; -COR3.125T PO; +LEVE500T PO
[2021-08-16] MEDS ORDERED: morphine 4 MG/ML inj SYRINge IV ONE (20:45)
[2021-08-16] MEDS ORDERED: normal saline 1000ml 1,000 ML IV ONE (20:45)
[2021-08-16] MEDS ORDERED: ondansetron/PF 4mg/2ml inj IV ONE (20:45)
[2021-08-16 20:52] LABS: BASOPHILS # (AUTO) 0.1 X10'3 (0-0.2); BASOPHILS % (AUTO) 1.2 % (0-1); EOSINOPHILS # (AUTO) 0.1 X10'3 (0-0.9); EOSINOPHILS % (AUTO) 1.3 % (0-6); HEMATOCRIT 36.8 % (35.0-45.0); HEMOGLOBIN 12.8 g/dl (12.0-16.0); LYMPHOCYTES # (AUTO) 1.4 X10'3 (1.1-4.8); LYMPHOCYTES % (AUTO) 20.8 % (21-51); MEAN CORPUSCULAR HEMOGLOBIN 31.4 PG (27.0-31.0); MEAN CORPUSCULAR HGB CONC 34.7 g/dL (33.0-36.5); MEAN CORPUSCULAR VOLUME 90.3 FL (78-98); MONOCYTES # (AUTO) 0.4 X10'3 (0-0.9); MONOCYTES % (AUTO) 5.6 % (2-12); NEUTROPHILS # (AUTO) 4.9 X10'3 (1.8-7.7); NEUTROPHILS % (AUTO) 71.1 % (42-75); PLATELET COUNT 228 X10'3 (140-440); RED BLOOD COUNT 4.07 X10'6 (4.20-5.60); WHITE BLOOD COUNT 6.9 X10'3 (4.5-11.0)
[2021-08-16] MEDS ORDERED: temazepam 15mg capsule PO PRN (21:00)
[2021-08-16 21:09] LABS: ALANINE AMINOTRANSFERASE 21 U/L (12-78); ALBUMIN 3.4 G/DL (3.4-5.0); ALKALINE PHOSPHATASE 71 IU/L (46-116); ANION GAP 10 (8-16); ASPARTATE AMINO TRANSFERASE 19 U/L (10-37); BILIRUBIN,TOTAL 0.3 MG/DL (0.1-1.0); BLOOD UREA NITROGEN 11 MG/DL (7-18); BUN/CREATININE RATIO 18.6 (6.6-38.0); CALCIUM 8.9 MG/DL (8.5-10.1); CHLORIDE 106 MMOL/L (99-107); CREATININE 0.59 MG/DL (0.40-0.90); GLUCOSE 129 MG/DL (70-104); MAGNESIUM 1.5 MG/DL (1.5-2.4); SODIUM 144 MMOL/L (135-145); TOTAL PROTEIN 6.7 G/DL (6.4-8.2); eGFR > 90 ML/MIN
[2021-08-16 21:12] LABS: CLARITY,URINE SLIGHTLY CLOUDY (Clear); COLOR,URINE YELLOW (Yellow); GLUCOSE, URINE NEGATIVE (Neg); PROTEIN,URINE TRACE mg/dl (Neg); UA COLLECTION TYPE STRAIGHT CATH
[2021-08-16 21:13] LABS: KETONES,URINE 80 mg/dl (Neg); LEUKOCYTE ESTERASE ,URINE NEGATIVE (Neg); NITRITES, URINE NEGATIVE (Neg); OCCULT BLOOD,URINE NEGATIVE (Neg); UROBILINOGEN,URINE 0.2 E.U/dL (0.2-1.0)
[2021-08-16 21:18] LABS: POTASSIUM 2.8 MMOL/L (3.5-5.1)
[2021-08-16 21:21] LABS: BACTERIA,URINE 1+ /HPF (Neg); MUCUS STRANDS FEW /LPF (Neg); RBC,URINE 0-2 /HPF (0-2); SQUAMOUS EPITHELIAL CELL,UR FEW /LPF (FEW)
[2021-08-16 21:22] LABS: CELLULAR CAST 0-4 /LPF (NEGATIVE); FINE GRANULAR CAST 0-3 /LPF (NEGATIVE)
[2021-08-16 21:23] LABS: YEAST MANY /HPF (NEGATIVE)
[2021-08-16] MEDS ORDERED: potassium Cl 10 mEq/100mL bag IV ONE (21:35)
[2021-08-16] MEDS ORDERED: ipratropium/albuterol 3ml nebule NEB PRN (22:10)
[2021-08-16] MEDS ORDERED: magnesium hydroxide 30ml (MOM) UD suspension PO PRN (22:10)
[2021-08-16] MEDS ORDERED: acetaminophen 650mg rectal suppository RC PRN (22:10)
[2021-08-16] MEDS ORDERED: potassium Cl 40MEQ/1/2NS 520ml 520 ML IV PRN ×2 (22:10)
[2021-08-16] MEDS ORDERED: ondansetron 4mg rapidly disintigrating tab PO PRN (22:10)
[2021-08-16] MEDS ORDERED: acetaminophen 325mg tablet PO PRN ×2 (22:10)
[2021-08-16] MEDS ORDERED: diphenhydrAMINE 25mg capsule PO PRN (22:10)
[2021-08-16] MEDS ORDERED: bisacodyl 10mg suppository rectal RC PRN (22:10)
[2021-08-16] MEDS ORDERED: mag hydrox/Alum hydrox/simeth 30ml oral suspension PO PRN (22:10)
[2021-08-16] MEDS ORDERED: HYDROcodone/acetaminophen 5mg/325mg tablet PO PRN (22:10)
[2021-08-16] MEDS ORDERED: potassium Cl 20 mEq SR tablet PO PRN ×2 (22:10)
[2021-08-16] MEDS ORDERED: ondansetron/PF 4mg/2ml inj IV PRN (22:10)
[2021-08-16] MEDS ORDERED: diphenhydrAMINE 50 mg/ml inj IV PRN (22:10)
[2021-08-16 22:28] LABS: PARTIAL THROMBOPLASTIN TIME 26 SECONDS (22-32)
[2021-08-16 22:52] LABS: CREATINE KINASE 51 U/L (26-192); LIPASE 92 U/L (73-393); PHOSPHORUS 3.8 MG/DL (2.3-4.5)
[2021-08-16 22:56] LABS: URINE AMPHETAMINE SCREEN NEGATIVE (Neg); URINE BARBITUATE SCREEN NEGATIVE (Neg); URINE BENZODIAZEPINES SCREEN NEGATIVE (Neg); URINE CANNABINOID SCREEN NEGATIVE (Neg); URINE COCAINE SCREEN NEGATIVE (Neg); URINE METHADONE SCREEN NEGATIVE (Neg); URINE OPIATE SCREEN POSITIVE (Neg); URINE PHENCYCLIDINE SCREEN NEGATIVE (Neg)
[2021-08-16 22:58] LABS: ETHANOL < 0.010 GM/DL (0.0-0.010)
--- NOTE | 2021-08-16 23:48 | NUR ---
Note garretroxana in EDM - 08/16/21 at 2350 by AILEEN security called to get blood and change patient into gown. belognings outside of door. patient left room after secutiry left and tried to leave, security escorted her back to her room. Versed was ordered and patient gladly let me give it to her. Asked patient if she could provide urine sample she refused, will keep trying. patient is now resting in her bed with blanket over her head.
--- NOTE | 2021-08-16 23:48 | NUR ---
security called to get blood and change patient into gown. elidia outside of door. patient left room after secutiry left and tried to leave, security escorted her back to her room. Versed was ordered and patient gladly let me give it to her. Asked patient if she could provide urine sample she refused, will keep trying. patient is now resting in her bed with blanket over her head.
[2021-08-17] MEDS: potassium Cl 20mEq in NS 1,000 ML IV SCH ×3 (00:34→18:32)
[2021-08-17 01:33] LABS: BASOPHILS # (AUTO) 0.1 X10'3 (0-0.2); BASOPHILS % (AUTO) 1.2 % (0-1); EOSINOPHILS # (AUTO) 0.1 X10'3 (0-0.9); EOSINOPHILS % (AUTO) 0.9 % (0-6); HEMATOCRIT 28.6 % (35.0-45.0); HEMOGLOBIN 10.1 g/dl (12.0-16.0); LYMPHOCYTES # (AUTO) 2.3 X10'3 (1.1-4.8); LYMPHOCYTES % (AUTO) 39.1 % (21-51); MEAN CORPUSCULAR HEMOGLOBIN 31.7 PG (27.0-31.0); MEAN CORPUSCULAR HGB CONC 35.3 g/dL (33.0-36.5); MEAN CORPUSCULAR VOLUME 89.8 FL (78-98); MEAN PLATELET VOLUME 9.9 FL (7.4-10.4); MONOCYTES # (AUTO) 0.3 X10'3 (0-0.9); MONOCYTES % (AUTO) 4.5 % (2-12); NEUTROPHILS # (AUTO) 3.1 X10'3 (1.8-7.7); NEUTROPHILS % (AUTO) 54.3 % (42-75); PLATELET COUNT 181 X10'3 (140-440); RED BLOOD COUNT 3.19 X10'6 (4.20-5.60); WHITE BLOOD COUNT 5.8 X10'3 (4.5-11.0)
[2021-08-17 01:45] LABS: ALANINE AMINOTRANSFERASE 21 U/L (12-78); ALBUMIN 2.6 G/DL (3.4-5.0); ALKALINE PHOSPHATASE 55 IU/L (46-116); ANION GAP 11 (8-16); ASPARTATE AMINO TRANSFERASE 17 U/L (10-37); BILIRUBIN,TOTAL 0.2 MG/DL (0.1-1.0); BLOOD UREA NITROGEN 8 MG/DL (7-18); BUN/CREATININE RATIO 18.2 (6.6-38.0); CALCIUM 7.4 MG/DL (8.5-10.1); CHLORIDE 111 MMOL/L (99-107); CREATININE 0.44 MG/DL (0.40-0.90); GLUCOSE 79 MG/DL (70-104); POTASSIUM 3.2 MMOL/L (3.5-5.1); SODIUM 148 MMOL/L (135-145); TOTAL CARBON DIOXIDE 25.6 MMOL/L (24-32); TOTAL PROTEIN 5.3 G/DL (6.4-8.2); eGFR > 90 ML/MIN
--- NOTE | 2021-08-17 07:01 | NUR ---
Pt depends changed and pericare
[2021-08-17] MEDS: K and/or MAG REPLACEMENT MC SCH ×2 (07:08→20:00)
[2021-08-17] MEDS: morphine 2 MG/ML inj. syringe IV PRN ×3 (07:15→19:38)
[2021-08-17] MEDS: docusate sod 100mg capsule PO SCH ×3 (08:00→19:40)
[2021-08-17] MEDS: furosemide 10 MG/1 ML 10ml inj IV SCH (08:56)
[2021-08-17] MEDS: ciprofloxacin 250mg tablet PO SCH ×2 (10:08→22:36)
[2021-08-17] MEDS ORDERED: baclofen 10mg tablet PO PRN (11:00)
[2021-08-17] MEDS ORDERED: meclizine 12.5mg tablet PO PRN (11:00)
[2021-08-17] MEDS ORDERED: non-formulary drug (albuterol inhaler (Pro-Air Inhaler) 2 PUFFS) PO PRN (11:00)
--- NOTE | 2021-08-17 11:00 | NUR ---
Pt is awake and alert. Slurred speech(old cva), R sided weakness. C/O pain in R UE.
[2021-08-17] MEDS: aspirin 325mg tablet PO SCH (12:27)
[2021-08-17] MEDS: atorvastatin 20mg tablet PO SCH (12:27)
[2021-08-17] MEDS: albuterol 2.5 MG/3 ML nebule NEB SCH ×2 (14:54→20:16)
--- NOTE | 2021-08-17 17:48 | NUR ---
Report given LEXX Willoughby on PCU floor.
[2021-08-17 18:00] VITALS: BP 130/58
--- NOTE | 2021-08-17 18:40 | NUR ---
Problems reprioritized. Patient report given, questions answered & plan of care reviewed with Prudence RN.
--- NOTE | 2021-08-17 18:46 | NUR ---
Patient in room PCU 3013. I have received report from Case HALLMAN and had the opportunity to ask questions and assume patient care.
[2021-08-17] MEDS: levetiracetam 250mg tablet PO SCH (19:39)
[2021-08-17] MEDS: enoxaparin 30mg/0.3ml syringe SUBCUT SCH (19:39)
[2021-08-17] MEDS: lactobacillus rhamnosus 10,000 MMU CELLS/CAPSULE PO SCH (19:39)
[2021-08-17] MEDS: carVEDilol 3.125mg tablet PO SCH (19:40)
--- NOTE | 2021-08-17 19:40 | NUR ---
Patient in room PCU 3013. I have received report from MARCIAL HALLMAN and had the opportunity to ask questions and assume patient care.
[2021-08-17] MEDS ORDERED: non-formulary drug (Fluticasone/Salmeterol (Advair 250-50 Diskus) 1 PUFFS) INH SCH (20:00)
[2021-08-17] MEDS ORDERED: budesonide 0.5mg/2ml UD nebule IH SCH (21:00)
[2021-08-17] MEDS ORDERED: gabapentin 100mg capsule PO SCH (21:00)
[2021-08-17 22:00] VITALS: BP 139/69
[2021-08-17] MEDS: oxyCODONE/APAP 5-325mg tablet PO PRN (23:01)
[2021-08-18 02:00] VITALS: BP 136/70
[2021-08-18] MEDS: potassium Cl 20mEq in NS 1,000 ML IV SCH (02:58)
[2021-08-18] MEDS: albuterol 2.5 MG/3 ML nebule NEB SCH (03:00)
[2021-08-18] MEDS: morphine 2 MG/ML inj. syringe IV PRN (05:07)
--- NOTE | 2021-08-18 05:33 | NUR ---
Spoke to Pt POA which stated concerns about pt being discharged to [facility]. POA Marisol Chao wishes to be contacted
[2021-08-18 06:30] VITALS: BP 147/64
--- NOTE | 2021-08-18 06:40 | NUR ---
Patient in room PCU 3013. I have received report from Leigh RN & LEXX Parada and had the opportunity to ask questions and assume patient care.
--- NOTE | 2021-08-18 06:45 | NUR ---
Problems reprioritized. Patient report given, questions answered & plan of care reviewed with Harika HALLMAN.
[2021-08-18] MEDS ORDERED: pantoprazole 40mg Tablet.DR PO SCH (07:30)
[2021-08-18] MEDS ORDERED: clopidogrel 75mg tablet PO SCH (08:00)
[2021-08-18] MEDS ORDERED: FLUoxetine 20mg capsule PO SCH (08:00)
[2021-08-18 08:07] LABS: BASOPHILS % (AUTO) 0.5 % (0-1); EOSINOPHILS # (AUTO) 0.1 X10'3 (0-0.9); EOSINOPHILS % (AUTO) 2.1 % (0-6); HEMATOCRIT 33.9 % (35.0-45.0); HEMOGLOBIN 11.7 g/dl (12.0-16.0); LYMPHOCYTES # (AUTO) 2.1 X10'3 (1.1-4.8); LYMPHOCYTES % (AUTO) 38.9 % (21-51); MEAN CORPUSCULAR HEMOGLOBIN 31.6 PG (27.0-31.0); MEAN CORPUSCULAR HGB CONC 34.5 g/dL (33.0-36.5); MEAN CORPUSCULAR VOLUME 91.5 FL (78-98); MEAN PLATELET VOLUME 10.2 FL (7.4-10.4); MONOCYTES # (AUTO) 0.3 X10'3 (0-0.9); MONOCYTES % (AUTO) 5.3 % (2-12); NEUTROPHILS # (AUTO) 2.9 X10'3 (1.8-7.7); NEUTROPHILS % (AUTO) 53.2 % (42-75); PLATELET COUNT 191 X10'3 (140-440); WHITE BLOOD COUNT 5.5 X10'3 (4.5-11.0)
[2021-08-18 08:33] LABS: ALANINE AMINOTRANSFERASE 19 U/L (12-78); ALKALINE PHOSPHATASE 64 IU/L (46-116); ANION GAP 12 (8-16); ASPARTATE AMINO TRANSFERASE 21 U/L (10-37); BILIRUBIN,TOTAL 0.3 MG/DL (0.1-1.0); BLOOD UREA NITROGEN 3 MG/DL (7-18); BUN/CREATININE RATIO 7.1 (6.6-38.0); CHLORIDE 107 MMOL/L (99-107); CREATININE 0.42 MG/DL (0.40-0.90); GLUCOSE 70 MG/DL (70-104); POTASSIUM 3.4 MMOL/L (3.5-5.1); SODIUM 145 MMOL/L (135-145); TOTAL CARBON DIOXIDE 25.6 MMOL/L (24-32); TOTAL PROTEIN 5.9 G/DL (6.4-8.2); eGFR > 90 ML/MIN
[2021-08-18] MEDS: K and/or MAG REPLACEMENT MC SCH (09:58)
[2021-08-18] MEDS: atorvastatin 20mg tablet PO SCH (10:07)
[2021-08-18] MEDS: docusate sod 100mg capsule PO SCH (10:07)
[2021-08-18] MEDS: aspirin 325mg tablet PO SCH (10:07)
[2021-08-18] MEDS: carVEDilol 3.125mg tablet PO SCH (10:07)
[2021-08-18] MEDS: levetiracetam 250mg tablet PO SCH (10:07)
[2021-08-18] MEDS: oxyCODONE/APAP 5-325mg tablet PO PRN (10:08)
[2021-08-18] MEDS: ciprofloxacin 250mg tablet PO SCH (10:08)
[2021-08-18] MEDS: lactobacillus rhamnosus 10,000 MMU CELLS/CAPSULE PO SCH (10:08)
[2021-08-18] MEDS: enoxaparin 30mg/0.3ml syringe SUBCUT SCH (10:09)
[2021-08-18] MEDS: furosemide 10 MG/1 ML 10ml inj IV SCH (10:09)
[2021-08-18 11:00] VITALS: BP 132/66
--- NOTE | 2021-08-18 14:00 | NUR ---
DC inst provided to pt. DC inst also provided to daughter, Carina via phone. IV DC'd, tip intact. All belongings sent w/pt. WC to vehicle.
== END 2021-08-18 14:08 | disposition home or self-care (01) | DRG 254 ==
LOC: ER 19:43 → ED HOLD 22:12 → PCU 3S 08-17 18:30
PROVIDERS: ADMIT Family Medicine; ATTEND Family Medicine
DX: R13.12 Dysphagia, oropharyngeal phase (principal); I11.0 Hypertensive heart disease with heart failure; I69.351 Hemiplegia and hemiparesis following cerebral infarction affecting right dominant side; I50.22 Chronic systolic (congestive) heart failure; E86.1 Hypovolemia; R13.0 Aphagia; I48.91 Unspecified atrial fibrillation; E87.6 Hypokalemia; R62.7 Adult failure to thrive; E78.5 Hyperlipidemia, unspecified; G40.909 Epilepsy, unspecified, not intractable, without status epilepticus; G89.4 Chronic pain syndrome; M54.50 Low back pain, unspecified; J44.9 Chronic obstructive pulmonary disease, unspecified; F17.210 Nicotine dependence, cigarettes, uncomplicated; R82.4 Acetonuria; N39.0 Urinary tract infection, site not specified; R47.1 Dysarthria and anarthria; K21.9 Gastro-esophageal reflux disease without esophagitis; M24.531 Contracture, right wrist; Z20.822 Contact with and (suspected) exposure to COVID-19; Z79.82 Long term (current) use of aspirin; Z79.899 Other long term (current) drug therapy; Z88.0 Allergy status to penicillin; Z88.2 Allergy status to sulfonamides; Z88.1 Allergy status to other antibiotic agents; Z90.710 Acquired absence of both cervix and uterus; Z79.891 Long term (current) use of opiate analgesic; Z68.1 Body mass index [BMI] 19.9 or less, adult
CPT/HCPCS: 36415; 71045; 80053; 80305; 80320; 81001; 82550; 83690; 83735; 83880; 84100; 84132; 84145; 84484; 85025; 85610; 85730; 87077; 87081; 87088; 87635; 92508; 92616; 93005; 94760; 96361; 96374; 96375; 97161; 97530; 99285; G0378; J1650; J1940; J2270; J2405; J3480; J7030

== ENCOUNTER 2021-08-20 14:13 | Inpatient (IN) | payer MEDICAID ==
[~2021-08-20] VITALS: Ht 160 cm; Wt 38.0 kg
[2021-08-20 15:53] LABS: BASOPHILS % (AUTO) 0.7 % (0-1); EOSINOPHILS # (AUTO) 0.1 X10'3 (0-0.9); EOSINOPHILS % (AUTO) 1.5 % (0-6); HEMATOCRIT 34.9 % (35.0-45.0); HEMOGLOBIN 12.1 g/dl (12.0-16.0); LYMPHOCYTES # (AUTO) 1.8 X10'3 (1.1-4.8); LYMPHOCYTES % (AUTO) 29.7 % (21-51); MEAN CORPUSCULAR HEMOGLOBIN 31.6 PG (27.0-31.0); MEAN CORPUSCULAR HGB CONC 34.7 g/dL (33.0-36.5); MEAN PLATELET VOLUME 9.4 FL (7.4-10.4); MONOCYTES # (AUTO) 0.4 X10'3 (0-0.9); MONOCYTES % (AUTO) 6.8 % (2-12); NEUTROPHILS # (AUTO) 3.6 X10'3 (1.8-7.7); NEUTROPHILS % (AUTO) 61.3 % (42-75); PLATELET COUNT 208 X10'3 (140-440); RED BLOOD COUNT 3.83 X10'6 (4.20-5.60); RED CELL DISTRIBUTION WIDTH 14.9 % (11.5-14.5); WHITE BLOOD COUNT 5.9 X10'3 (4.5-11.0)
--- NOTE | 2021-08-20 16:02 | NUR ---
PT'S DAUGHTER CALLED AND WANTED TO HAVE AN UPDATE. PT WAS JUST GETTING INTO HER ROOM SO I SAID TRY BACK IN A COUPLE MINUTES. HER NUMBER IS [phone]
[2021-08-20 16:11] LABS: ALANINE AMINOTRANSFERASE 27 U/L (12-78); ALBUMIN/GLOBULIN RATIO 0.9 (1.1-1.5); ALKALINE PHOSPHATASE 63 IU/L (46-116); ANION GAP 8 (8-16); ASPARTATE AMINO TRANSFERASE 20 U/L (10-37); BILIRUBIN,TOTAL 0.3 MG/DL (0.1-1.0); BLOOD UREA NITROGEN 6 MG/DL (7-18); BUN/CREATININE RATIO 10.5 (6.6-38.0); CALCIUM 8.6 MG/DL (8.5-10.1); CHLORIDE 106 MMOL/L (99-107); CREATININE 0.57 MG/DL (0.40-0.90); GLUCOSE 99 MG/DL (70-104); POTASSIUM 3.3 MMOL/L (3.5-5.1); SODIUM 144 MMOL/L (135-145); TOTAL CARBON DIOXIDE 29.8 MMOL/L (24-32); TOTAL PROTEIN 6.2 G/DL (6.4-8.2); eGFR > 90 ML/MIN
[2021-08-20] MEDS ORDERED: levetiracetam inj 1,500 MG in normal saline 100ml IV soln 85 ML IV STA (17:19)
[2021-08-20] MEDS ORDERED: levetiracetam inj 1,500 MG in normal saline 100ml IV soln 100 ML IV STA (17:20)
[2021-08-20 18:03] LABS: CLARITY,URINE SLIGHTLY CLOUDY (Clear); COLOR,URINE YELLOW (Yellow); GLUCOSE, URINE NEGATIVE (Neg); KETONES,URINE 80 mg/dl (Neg); LEUKOCYTE ESTERASE ,URINE NEGATIVE (Neg); NITRITES, URINE NEGATIVE (Neg); OCCULT BLOOD,URINE NEGATIVE (Neg); PROTEIN,URINE NEGATIVE (Neg); UROBILINOGEN,URINE 0.2 E.U/dL (0.2-1.0)
[2021-08-20 18:05] LABS: AMORPHOUS PHOSPHATES 1+; BACTERIA,URINE FEW /HPF (Neg); HYALINE CASTS 0-3 /LPF (NEGATIVE); MUCUS STRANDS MODERATE /LPF (Neg); RBC,URINE NONE SEEN /HPF (0-2); SQUAMOUS EPITHELIAL CELL,UR FEW /LPF (FEW); WBC CLUMPS,URINE FEW /HPF (NEGATIVE)
[2021-08-20] MEDS ORDERED: acetaminophen 325mg tablet PO PRN (18:05)
[2021-08-20] MEDS ORDERED: potassium Cl 40MEQ/1/2NS 520ml 520 ML IV PRN ×2 (18:05)
[2021-08-20] MEDS ORDERED: potassium Cl 20 mEq SR tablet PO PRN ×2 (18:05)
[2021-08-20] MEDS ORDERED: ondansetron/PF 4mg/2ml inj IV PRN (18:05)
[2021-08-20] MEDS ORDERED: thiamine 100mg/ml 2ml inj. IV SCH (18:05)
[2021-08-20] MEDS ORDERED: magnesium 2GM in 50ml NS 50 ML IV PRN (18:05)
[2021-08-20] MEDS ORDERED: magnesium hydroxide 30ml (MOM) UD suspension PO PRN (18:05)
[2021-08-20] MEDS ORDERED: magnesium 4gm in 100ml NS 100 ML IV PRN (18:05)
[2021-08-20] MEDS ORDERED: mag hydrox/Alum hydrox/simeth 30ml oral suspension PO PRN (18:05)
[2021-08-20] MEDS ORDERED: morphine 2 MG/ML inj. syringe IV PRN (18:05)
[2021-08-20 18:06] LABS: UA COLLECTION TYPE STRAIGHT CATH
[2021-08-20] MEDS ORDERED: LEVE500T PO (18:21)
[2021-08-20] MEDS: enoxaparin 40mg/0.4ml syringe SQ SCH (19:04)
[2021-08-20] MEDS: docusate sod 100mg capsule PO SCH (20:00)
[2021-08-20] MEDS: K and/or MAG REPLACEMENT MC SCH (20:30)
--- NOTE | 2021-08-20 21:12 | NUR ---
Patient disoriented to date of and location. Patient appears confused. Patient spontaneously opens eyes and is able to have brief conversation related to the moment and not related to historical/situational facts. Patient able to express needs.
[2021-08-20] MEDS: morphine 2 MG/ML inj. syringe IV PRN (23:35)
[2021-08-21] VITALS (7 sets, daily range): BP systolic 104–192; BP diastolic 58–96
--- NOTE | 2021-08-21 00:27 | NUR ---
RECEIVED PATIENT TO ROOM 3010I IN STABLE CONDITION. CAN NOT TELL ME HER NAME OR ANSWER QUESTIONS OTHER THAN YES OR NO. OPENS EYES AND FOLLOWS COMMANDS. RIGHT SIDE WEAK WITH RIGHT FACIAL DROOP.
--- NOTE | 2021-08-21 04:32 | NUR ---
noted patient is more alert now then when she arrived on unit. patient having trouble finding words and asked if she has a history of aphasia after her stroke and she replied "yes".
--- NOTE | 2021-08-21 07:23 | NUR ---
Patient in room PCU 3017. I have received report from LEXX KELLY, and had the opportunity to ask questions and assume patient care.
[2021-08-21] MEDS: K and/or MAG REPLACEMENT MC SCH ×2 (08:00→20:00)
[2021-08-21] MEDS ORDERED: levetiracetam inj 1,000 MG in normal saline 100ml IV soln 100 ML IV SCH (08:00)
[2021-08-21 08:06] LABS: ALANINE AMINOTRANSFERASE 21 U/L (12-78); ALBUMIN/GLOBULIN RATIO 0.9 (1.1-1.5); ALKALINE PHOSPHATASE 65 IU/L (46-116); ANION GAP 15 (8-16); ASPARTATE AMINO TRANSFERASE 24 U/L (10-37); BILIRUBIN,TOTAL 0.3 MG/DL (0.1-1.0); BLOOD UREA NITROGEN 7 MG/DL (7-18); BUN/CREATININE RATIO 13.7 (6.6-38.0); CALCIUM 8.5 MG/DL (8.5-10.1); CHLORIDE 107 MMOL/L (99-107); CREATININE 0.51 MG/DL (0.40-0.90); GLUCOSE 67 MG/DL (70-104); MAGNESIUM 1.9 MG/DL (1.5-2.4); POTASSIUM 4.4 MMOL/L (3.5-5.1); SODIUM 143 MMOL/L (135-145); TOTAL CARBON DIOXIDE 20.6 MMOL/L (24-32); TOTAL PROTEIN 6.3 G/DL (6.4-8.2); eGFR > 90 ML/MIN
[2021-08-21] MEDS ORDERED: baclofen 10mg tablet PO PRN (08:15)
[2021-08-21] MEDS: budesonide 0.5mg/2ml UD nebule IH SCH ×2 (08:20→19:03)
[2021-08-21 08:33] LABS: BASOPHILS % (AUTO) 0.8 % (0-1); EOSINOPHILS # (AUTO) 0.1 X10'3 (0-0.9); EOSINOPHILS % (AUTO) 1.6 % (0-6); HEMATOCRIT 35.2 % (35.0-45.0); HEMOGLOBIN 12.1 g/dl (12.0-16.0); LYMPHOCYTES # (AUTO) 1.9 X10'3 (1.1-4.8); LYMPHOCYTES % (AUTO) 39.8 % (21-51); MEAN CORPUSCULAR HEMOGLOBIN 31.4 PG (27.0-31.0); MEAN CORPUSCULAR HGB CONC 34.4 g/dL (33.0-36.5); MEAN CORPUSCULAR VOLUME 91.1 FL (78-98); MEAN PLATELET VOLUME 9.9 FL (7.4-10.4); MONOCYTES # (AUTO) 0.3 X10'3 (0-0.9); MONOCYTES % (AUTO) 7.1 % (2-12); NEUTROPHILS # (AUTO) 2.5 X10'3 (1.8-7.7); NEUTROPHILS % (AUTO) 50.7 % (42-75); PLATELET COUNT 218 X10'3 (140-440); RED BLOOD COUNT 3.87 X10'6 (4.20-5.60); WHITE BLOOD COUNT 4.9 X10'3 (4.5-11.0)
[2021-08-21] MEDS: levetiracetam inj 1,000 MG in normal saline 100ml IV soln 90 ML IV SCH ×2 (09:07→22:45)
[2021-08-21] MEDS: oxyCODONE/APAP 5-325mg tablet PO PRN ×2 (09:08→22:51)
[2021-08-21] MEDS: docusate sod 100mg capsule PO SCH ×2 (09:08→20:01)
[2021-08-21] MEDS: aspirin 325mg tablet PO SCH (10:57)
[2021-08-21] MEDS: clopidogrel 75mg tablet PO SCH (10:57)
[2021-08-21] MEDS: carVEDilol 3.125mg tablet PO SCH ×2 (10:58→20:01)
[2021-08-21] MEDS: pantoprazole 40mg Tablet.DR PO SCH (10:58)
[2021-08-21] MEDS: atorvastatin 20mg tablet PO SCH (10:58)
[2021-08-21] MEDS: FLUoxetine 20mg capsule PO SCH (10:58)
--- NOTE | 2021-08-21 11:08 | NUR ---
PAGE SENT PAGER ID: [phone] MESSAGE: [id number], IOANA DAUGHERTY, MAY SHE HAVE AN ORDER OF ATIVAN FOR THE MRI? PT REPORTS SHE'E CLAUSTRAPHOBIC. THANK YOU, RON Verma [phone]
[2021-08-21] MEDS ORDERED: LORazepam 1 MG tablet PO PRN (11:20)
--- NOTE | 2021-08-21 13:44 | NUR ---
Low BMI Screen: Pt BMI 14.8 on admit s/p breakthrough seizure w/ ALOC per EMR. Pt pending scaled wt this admit w/ last scaled wt recent August 09 admit this year 42.9kg. In addition, pt ht fluctuates each admit varying 60-66in. Pt WD/WN per ER note and seen by PJ prior admit on 08/11 without visible signs of muscle/fat wasting likely maintains stable low wt status. Pt previously agreed to chocolate Ensure Enlive TIDWM on 08/11; currently NPO. Will monitor for nutrition intervention needs this admit. Addendum: 08/21/21 at [address] Amended: Links added.
[2021-08-21] MEDS: THIAMINE IV SCH (13:55)
[2021-08-21] MEDS: NORMAL SALINE IV SCH (13:55)
[2021-08-21] MEDS: albuterol 2.5 MG/3 ML nebule NEB SCH ×2 (14:00→20:00)
--- NOTE | 2021-08-21 17:11 | NUR ---
PAE SENT PAGER ID: [phone] MESSAGE: [phone], IOANA DAUGHERTY, PT APPROPRIATE FOR PUREE DIET AND NECTAR THICK LIQUIDS. THANK YOU, RON [phone]
--- NOTE | 2021-08-21 19:02 | NUR ---
Problems reprioritized. Patient report given, questions answered & plan of care reviewed with LEXX KIRBY.
[2021-08-21] MEDS ORDERED: GADOTERATE MEGLUMINE 7.5 MMOL/15 ML VIAL IV ONE (19:34)
[2021-08-21] MEDS: enoxaparin 40mg/0.4ml syringe SQ SCH (20:04)
[2021-08-21] MEDS: gabapentin 100mg capsule PO SCH (20:05)
[2021-08-22 02:00] VITALS: BP 103/55
[2021-08-22] MEDS: albuterol 2.5 MG/3 ML nebule NEB SCH ×4 (02:00→19:53)
[2021-08-22 06:00] VITALS: BP 141/73
--- NOTE | 2021-08-22 06:36 | NUR ---
Patient in room PCU 3017. I have received report from LEXX Bryant and had the opportunity to ask questions and assume patient care.
[2021-08-22 06:53] LABS: BASOPHILS % (AUTO) 0.9 % (0-1); EOSINOPHILS # (AUTO) 0.1 X10'3 (0-0.9); EOSINOPHILS % (AUTO) 2.2 % (0-6); HEMATOCRIT 34.4 % (35.0-45.0); HEMOGLOBIN 11.8 g/dl (12.0-16.0); LYMPHOCYTES % (AUTO) 41.9 % (21-51); MEAN CORPUSCULAR HEMOGLOBIN 31.6 PG (27.0-31.0); MEAN CORPUSCULAR HGB CONC 34.2 g/dL (33.0-36.5); MEAN CORPUSCULAR VOLUME 92.2 FL (78-98); MEAN PLATELET VOLUME 9.9 FL (7.4-10.4); MONOCYTES # (AUTO) 0.3 X10'3 (0-0.9); MONOCYTES % (AUTO) 6.2 % (2-12); NEUTROPHILS # (AUTO) 2.3 X10'3 (1.8-7.7); NEUTROPHILS % (AUTO) 48.8 % (42-75); PLATELET COUNT 212 X10'3 (140-440); RED BLOOD COUNT 3.73 X10'6 (4.20-5.60); RED CELL DISTRIBUTION WIDTH 15.3 % (11.5-14.5); WHITE BLOOD COUNT 4.7 X10'3 (4.5-11.0)
[2021-08-22 07:27] LABS: ALANINE AMINOTRANSFERASE 26 U/L (12-78); ALKALINE PHOSPHATASE 64 IU/L (46-116); ANION GAP 11 (8-16); ASPARTATE AMINO TRANSFERASE 22 U/L (10-37); BILIRUBIN,TOTAL 0.3 MG/DL (0.1-1.0); BLOOD UREA NITROGEN 7 MG/DL (7-18); BUN/CREATININE RATIO 12.1 (6.6-38.0); CALCIUM 8.6 MG/DL (8.5-10.1); CHLORIDE 108 MMOL/L (99-107); CREATININE 0.58 MG/DL (0.40-0.90); GLUCOSE 85 MG/DL (70-104); MAGNESIUM 1.8 MG/DL (1.5-2.4); SODIUM 145 MMOL/L (135-145); TOTAL CARBON DIOXIDE 26.1 MMOL/L (24-32); eGFR > 90 ML/MIN
[2021-08-22] MEDS: K and/or MAG REPLACEMENT MC SCH ×2 (08:00→20:00)
[2021-08-22] MEDS: budesonide 0.5mg/2ml UD nebule IH SCH ×2 (08:00→19:52)
[2021-08-22] MEDS: levetiracetam inj 1,000 MG in normal saline 100ml IV soln 90 ML IV SCH ×2 (08:13→19:38)
[2021-08-22] MEDS: carVEDilol 3.125mg tablet PO SCH ×2 (08:14→19:38)
[2021-08-22] MEDS: THIAMINE IV SCH (08:14)
[2021-08-22] MEDS: clopidogrel 75mg tablet PO SCH (08:14)
[2021-08-22] MEDS: docusate sod 100mg capsule PO SCH ×2 (08:14→19:39)
[2021-08-22] MEDS: atorvastatin 20mg tablet PO SCH (08:14)
[2021-08-22] MEDS: NORMAL SALINE IV SCH (08:14)
[2021-08-22] MEDS: pantoprazole 40mg Tablet.DR PO SCH (08:14)
[2021-08-22] MEDS: FLUoxetine 20mg capsule PO SCH (08:14)
[2021-08-22] MEDS: aspirin 325mg tablet PO SCH (08:14)
[2021-08-22] MEDS: oxyCODONE/APAP 5-325mg tablet PO PRN (08:38)
--- NOTE | 2021-08-22 08:56 | NUR ---
Yung consult: Noted score of 11, no wounds or edema documented. Will continue to monitor. Addendum: 08/22/21 at [address] Amended: Links added.
[2021-08-22 11:00] VITALS: BP 127/69
[2021-08-22 15:00] VITALS: BP 113/54
--- NOTE | 2021-08-22 15:49 | NUR ---
Witness [place] waste 2 tablets of baclofen at 10mg a piece due to the patient changing her mind.
[2021-08-22 18:00] VITALS: BP 113/62
--- NOTE | 2021-08-22 18:26 | NUR ---
Problems reprioritized. Patient report given, questions answered & plan of care reviewed with LEXX Eckert.
[2021-08-22] MEDS: gabapentin 100mg capsule PO SCH (19:38)
[2021-08-22] MEDS: enoxaparin 40mg/0.4ml syringe SQ SCH (19:40)
[2021-08-22] MEDS: morphine 2 MG/ML inj. syringe IV PRN (20:01)
[2021-08-22 22:00] VITALS: BP 123/75
[2021-08-23 02:00] VITALS: BP 132/65
[2021-08-23] MEDS: albuterol 2.5 MG/3 ML nebule NEB SCH ×2 (02:00→07:54)
[2021-08-23] MEDS: morphine 2 MG/ML inj. syringe IV PRN (02:21)
[2021-08-23 06:00] VITALS: BP 123/54
--- NOTE | 2021-08-23 06:30 | NUR ---
Patient in room PCU 3017. I have received report from LEXX Eckert and had the opportunity to ask questions and assume patient care.
--- NOTE | 2021-08-23 06:33 | NUR ---
Problems reprioritized. Patient report given, questions answered & plan of care reviewed with Debbie HALLMAN. Addendum: 08/23/21 at 0633 by Tomeka Huizar RN Amended: Links added.
[2021-08-23 07:47] LABS: BASOPHILS # (AUTO) 0.1 X10'3 (0-0.2); BASOPHILS % (AUTO) 1.2 % (0-1); EOSINOPHILS # (AUTO) 0.1 X10'3 (0-0.9); EOSINOPHILS % (AUTO) 2.7 % (0-6); HEMOGLOBIN 12.1 g/dl (12.0-16.0); LYMPHOCYTES # (AUTO) 1.8 X10'3 (1.1-4.8); LYMPHOCYTES % (AUTO) 36.9 % (21-51); MEAN CORPUSCULAR HEMOGLOBIN 32.1 PG (27.0-31.0); MEAN CORPUSCULAR HGB CONC 34.7 g/dL (33.0-36.5); MEAN CORPUSCULAR VOLUME 92.5 FL (78-98); MEAN PLATELET VOLUME 10.4 FL (7.4-10.4); MONOCYTES # (AUTO) 0.3 X10'3 (0-0.9); MONOCYTES % (AUTO) 6.7 % (2-12); NEUTROPHILS # (AUTO) 2.6 X10'3 (1.8-7.7); NEUTROPHILS % (AUTO) 52.5 % (42-75); PLATELET COUNT 187 X10'3 (140-440); RED BLOOD COUNT 3.78 X10'6 (4.20-5.60); RED CELL DISTRIBUTION WIDTH 15.3 % (11.5-14.5)
[2021-08-23] MEDS: budesonide 0.5mg/2ml UD nebule IH SCH (07:54)
[2021-08-23] MEDS: docusate sod 100mg capsule PO SCH (08:00)
[2021-08-23] MEDS: K and/or MAG REPLACEMENT MC SCH (08:00)
[2021-08-23 08:25] LABS: ALANINE AMINOTRANSFERASE 22 U/L (12-78); ALBUMIN 3.1 G/DL (3.4-5.0); ALBUMIN/GLOBULIN RATIO 1.1 (1.1-1.5); ALKALINE PHOSPHATASE 64 IU/L (46-116); ANION GAP 16 (8-16); ASPARTATE AMINO TRANSFERASE 22 U/L (10-37); BILIRUBIN,TOTAL 0.3 MG/DL (0.1-1.0); BLOOD UREA NITROGEN 8 MG/DL (7-18); BUN/CREATININE RATIO 17.4 (6.6-38.0); CALCIUM 8.4 MG/DL (8.5-10.1); CHLORIDE 108 MMOL/L (99-107); CREATININE 0.46 MG/DL (0.40-0.90); GLUCOSE 69 MG/DL (70-104); MAGNESIUM 1.8 MG/DL (1.5-2.4); SODIUM 145 MMOL/L (135-145); TOTAL CARBON DIOXIDE 20.9 MMOL/L (24-32); eGFR > 90 ML/MIN
[2021-08-23] MEDS: atorvastatin 20mg tablet PO SCH (08:34)
[2021-08-23] MEDS: aspirin 325mg tablet PO SCH (08:34)
[2021-08-23] MEDS: pantoprazole 40mg Tablet.DR PO SCH (08:34)
[2021-08-23] MEDS: carVEDilol 3.125mg tablet PO SCH (08:34)
[2021-08-23] MEDS: FLUoxetine 20mg capsule PO SCH (08:34)
[2021-08-23] MEDS: levetiracetam inj 1,000 MG in normal saline 100ml IV soln 90 ML IV SCH (08:34)
[2021-08-23] MEDS: clopidogrel 75mg tablet PO SCH (08:34)
[2021-08-23] MEDS: THIAMINE IV SCH (08:58)
[2021-08-23] MEDS: NORMAL SALINE IV SCH (08:58)
[2021-08-23 11:00] VITALS: BP 119/55
[2021-08-23] MEDS: oxyCODONE/APAP 5-325mg tablet PO PRN (11:11)
[2021-08-23] MEDS ORDERED: LEVE10006 PO (11:25)
--- NOTE | 2021-08-23 13:00 | NUR ---
Pt discharged to home with all belongings, in private vehicle, accompanied by family member. Discharge instructions and medications reviewed. New prescription e-scripted to [facility] [address]. Pt instructed to follow up with PCP in 1-2 weeks, and to return to ED if symptoms return. Pt stated understanding and willingness to comply with all discharge instructions. IV DC'd, cannula intact. Pt escorted to front lobby via wheelchair.
== END 2021-08-23 13:01 | disposition home health service (06) | DRG 53 ==
LOC: ER 14:14 → ED HOLD 18:14 → PCU 3S 08-21 00:10
PROVIDERS: ADMIT Family Medicine; ATTEND Family Medicine
PROC: 4A10X4Z Monitoring of Central Nervous Electrical Activity, External Approach (ICD-10-PCS; principal; 2021-08-21)
DX: G40.802 Other epilepsy, not intractable, without status epilepticus (principal); I69.351 Hemiplegia and hemiparesis following cerebral infarction affecting right dominant side; E78.5 Hyperlipidemia, unspecified; I48.91 Unspecified atrial fibrillation; G89.29 Other chronic pain; E87.6 Hypokalemia; M54.9 Dorsalgia, unspecified; R94.01 Abnormal electroencephalogram [EEG]; Z79.51 Long term (current) use of inhaled steroids; Z79.899 Other long term (current) drug therapy; Z90.710 Acquired absence of both cervix and uterus; Z88.0 Allergy status to penicillin; Z88.2 Allergy status to sulfonamides; Z88.8 Allergy status to other drugs, medicaments and biological substances; Z79.82 Long term (current) use of aspirin
CPT/HCPCS: 36415; 70450; 70553; 80053; 81001; 82140; 82607; 83735; 84443; 85025; 87081; 87088; 92508; 94760; 95816; 96365; 97116; 97161; 97530; 99285; A9575; G0378; J1650; J1953; J2270; J3411; J3480

== ENCOUNTER 2021-11-01 18:54 | Emergency (ER) | payer MEDICAID ==
[~2021-11-01] VITALS: Ht 152.4 cm; Wt 41.7 kg
[~2021-11-01 18:54] MED LIST changes: +LEVE10006 PO; -LEVE500T PO; -OMEP-50 PO; +OMEP20CA16 PO
--- NOTE | 2021-11-01 20:21 | NUR ---
removed c-collar with MD permission. CT scans have resulted
[2021-11-01] MEDS ORDERED: HYDROcodone/acetaminophen 10/325mg tab PO ONE (20:30)
[2021-11-01] MEDS ORDERED: HYDR-3965 PO (21:11)
[2021-11-01 21:41] VITALS: BP 122/62
== END 2021-11-01 21:43 | disposition home or self-care (01) ==
LOC: ER 18:54
DX: S09.90XA Unspecified injury of head, initial encounter (principal); S16.1XXA Strain of muscle, fascia and tendon at neck level, initial encounter; R53.1 Weakness; R11.10 Vomiting, unspecified; R10.84 Generalized abdominal pain; G89.29 Other chronic pain; Z86.73 Personal history of transient ischemic attack (TIA), and cerebral infarction without residual deficits; Z86.69 Personal history of other diseases of the nervous system and sense organs; Z90.710 Acquired absence of both cervix and uterus; Z88.0 Allergy status to penicillin; Z88.2 Allergy status to sulfonamides; Z88.1 Allergy status to other antibiotic agents; Z88.6 Allergy status to analgesic agent; Z79.82 Long term (current) use of aspirin; Z79.899 Other long term (current) drug therapy; W19.XXXA Unspecified fall, initial encounter; Y93.89 Activity, other specified; Y92.89 Other specified places as the place of occurrence of the external cause; Y99.8 Other external cause status
CPT/HCPCS: 70450; 72125; 93005; 99284; 99285

== ENCOUNTER 2021-11-13 21:53 | Inpatient (IN) | payer MEDICAID ==
[~2021-11-13] VITALS: Ht 152.4 cm; Wt 39.1 kg
[~2021-11-13 21:53] MED LIST changes: +HYDR-3965 PO
[2021-11-13 22:20] LABS: BASOPHILS % (AUTO) 0.5 % (0-1); EOSINOPHILS # (AUTO) 0.1 X10'3 (0-0.9); EOSINOPHILS % (AUTO) 2.3 % (0-6); HEMATOCRIT 35.9 % (35.0-45.0); HEMOGLOBIN 12.1 g/dl (12.0-16.0); LYMPHOCYTES # (AUTO) 1.8 X10'3 (1.1-4.8); LYMPHOCYTES % (AUTO) 41.9 % (21-51); MEAN CORPUSCULAR HEMOGLOBIN 31.4 PG (27.0-31.0); MEAN CORPUSCULAR HGB CONC 33.6 g/dL (33.0-36.5); MEAN CORPUSCULAR VOLUME 93.4 FL (78-98); MEAN PLATELET VOLUME 9.9 FL (7.4-10.4); MONOCYTES # (AUTO) 0.3 X10'3 (0-0.9); MONOCYTES % (AUTO) 6.4 % (2-12); NEUTROPHILS # (AUTO) 2.1 X10'3 (1.8-7.7); NEUTROPHILS % (AUTO) 48.9 % (42-75); PLATELET COUNT 205 X10'3 (140-440); RED BLOOD COUNT 3.84 X10'6 (4.20-5.60); RED CELL DISTRIBUTION WIDTH 13.3 % (11.5-14.5); WHITE BLOOD COUNT 4.2 X10'3 (4.5-11.0)
[2021-11-13 22:45] LABS: ALANINE AMINOTRANSFERASE 68 U/L (12-78); ALBUMIN 3.3 G/DL (3.4-5.0); ALBUMIN/GLOBULIN RATIO 0.9 (1.1-1.5); ANION GAP 5 (8-16); ASPARTATE AMINO TRANSFERASE 44 U/L (10-37); BILIRUBIN,TOTAL 0.2 MG/DL (0.1-1.0); BLOOD UREA NITROGEN 18 MG/DL (7-18); CALCIUM 8.7 MG/DL (8.5-10.1); CHLORIDE 106 MMOL/L (99-107); GLUCOSE 75 MG/DL (70-104); SODIUM 140 MMOL/L (135-145); TOTAL CARBON DIOXIDE 29.5 MMOL/L (24-32); TOTAL PROTEIN 7.1 G/DL (6.4-8.2); eGFR > 90 ML/MIN
[2021-11-13] MEDS ORDERED: normal saline 1000ML IV soln IVB ONE (22:50)
[2021-11-14] VITALS (16 sets, daily range): BP systolic 109–143; BP diastolic 40–71
[2021-11-14 00:40] LABS: CLARITY,URINE CLOUDY (Clear); COLOR,URINE YELLOW (Yellow); GLUCOSE, URINE NEGATIVE (Neg); KETONES,URINE NEGATIVE (Neg); LEUKOCYTE ESTERASE ,URINE SMALL (Neg); NITRITES, URINE NEGATIVE (Neg); OCCULT BLOOD,URINE MODERATE (Neg); PH,URINE 7.5 (4.8-8.0); PROTEIN,URINE NEGATIVE (Neg); UROBILINOGEN,URINE 0.2 E.U/dL (0.2-1.0)
[2021-11-14 00:47] LABS: UA COLLECTION TYPE STRAIGHT CATH
[2021-11-14 00:50] LABS: AMORPHOUS PHOSPHATES 2+; TRIPLE PHOSPHATE CRYST 1+ /HPF (NEGATIVE)
[2021-11-14 00:51] LABS: SQUAMOUS EPITHELIAL CELL,UR FEW /LPF (FEW)
[2021-11-14 00:52] LABS: BACTERIA,URINE 3+ /HPF (Neg); MUCUS STRANDS NONE SEEN /LPF (Neg); WBC,URINE 0-4 /HPF (0-4)
[2021-11-14] MEDS ORDERED: CYCL5TAB PO (00:58)
--- NOTE | 2021-11-14 02:20 | NUR ---
SENT A PAGE TO DR. WILSON ABOUT CRITICAL 3 HOUR TROP.
--- NOTE | 2021-11-14 04:26 | NUR ---
Received report from LEXX Wood. Awaiting patient arrival to the floor.
--- NOTE | 2021-11-14 04:45 | NUR ---
Patient arrived to the floor via gurney with PCT. Placed in room 315B. Patient alert and oriented x4 on room air, in no apparent distress. Call light and items of frequent use within reach. Will continue to monitor
[2021-11-14] MEDS ORDERED: magnesium 4gm in 100ml NS 100 ML IV PRN (06:35)
[2021-11-14] MEDS ORDERED: morphine 2 MG/ML inj. syringe IV PRN (06:35)
[2021-11-14] MEDS ORDERED: potassium CL 10mEq/100ml bag 100 ML IV PRN (06:35)
[2021-11-14] MEDS ORDERED: PERFLUTREN PROTEIN-A MICROSPHR (Optison) 0.22 MG/ML 3ML VIAL IV PRN (06:35)
[2021-11-14] MEDS ORDERED: normal saline 1000ml 1,000 ML IV SCH (06:35)
[2021-11-14] MEDS ORDERED: ondansetron/PF 4mg/2ml inj IV PRN (06:35)
[2021-11-14] MEDS ORDERED: acetaminophen 325mg tablet PO PRN (06:35)
[2021-11-14] MEDS ORDERED: magnesium Cl slow-release 64mg tablet PO PRN (06:35)
[2021-11-14] MEDS ORDERED: magnesium 2GM in 50ml NS 50 ML IV PRN (06:35)
[2021-11-14] MEDS ORDERED: potassium Cl 20 mEq SR tablet PO PRN ×2 (06:35)
[2021-11-14] MEDS ORDERED: regadenoson 0.4mg/5ml syringe IV PRN (06:50)
[2021-11-14] MEDS ORDERED: metoprolol tartrate 1mg/ml inj IV PRN (06:50)
[2021-11-14] MEDS ORDERED: aminophylline 250mg/10ml inj. IV PRN (06:50)
[2021-11-14] MEDS ORDERED: nitroGLYCERIN 0.4mg SUBLingual tab SL PRN (06:50)
[2021-11-14] MEDS: K and/or MAG REPLACEMENT MC SCH ×2 (07:47→20:44)
[2021-11-14] MEDS: enoxaparin 40mg/0.4ml syringe SUBCUT SCH (07:58)
[2021-11-14 08:55] LABS: MAGNESIUM 1.9 MG/DL (1.5-2.4); POTASSIUM 4.1 MMOL/L (3.5-5.1)
--- NOTE | 2021-11-14 09:26 | NUR ---
PAGER ID: [phone] MESSAGE: [id number] Jeremie: patient would like to leave ama, can you come talk to patient when you have a moment? Also they have a peg, are we to use?
[2021-11-14] MEDS ORDERED: OXCA150T14 PO (12:20)
[2021-11-14] MEDS ORDERED: oxyCODONE/APAP 5-325mg tablet PO PRN (15:05)
[2021-11-14] MEDS ORDERED: cyclobenzaprine 10mg tablet PO PRN (15:05)
[2021-11-14] MEDS ORDERED: verapamil 2.5 mg/ml inj IV ONE (18:40)
[2021-11-14] MEDS ORDERED: fentaNYL/PF 50MCG/1 ML 2ML syringe ONE (18:40)
[2021-11-14] MEDS ORDERED: nitroGLYCERIN-Tridil 50MG/D5W 250 ML IV ONE (18:41)
[2021-11-14] MEDS ORDERED: midazolam 1 mg/ML 2ml injection ONE (18:41)
[2021-11-14] MEDS ORDERED: heparin 1,000unit/ml 10ml vial 10 ML ONE (18:41)
[2021-11-14] MEDS ORDERED: LIDOcaine 1% (10mg/ml)w/preservative injection 20ml MDV ONE (18:41)
[2021-11-14] MEDS ORDERED: iohexol 350MG/ML 100ml bottle IV ONE (18:41)
[2021-11-14] MEDS: oxcarbazepine 150mg tablet PO SCH (20:49)
[2021-11-14] MEDS ORDERED: gabapentin 100mg capsule PO SCH (21:00)
[2021-11-15 02:00] VITALS: BP 99/48
[2021-11-15 06:00] VITALS: BP 93/45
[2021-11-15 06:41] LABS: BASOPHILS % (AUTO) 0.6 % (0-1); EOSINOPHILS # (AUTO) 0.1 X10'3 (0-0.9); EOSINOPHILS % (AUTO) 2.3 % (0-6); HEMATOCRIT 30.6 % (35.0-45.0); HEMOGLOBIN 10.2 g/dl (12.0-16.0); LYMPHOCYTES # (AUTO) 1.8 X10'3 (1.1-4.8); LYMPHOCYTES % (AUTO) 40.9 % (21-51); MEAN CORPUSCULAR HEMOGLOBIN 31.6 PG (27.0-31.0); MEAN CORPUSCULAR HGB CONC 33.4 g/dL (33.0-36.5); MEAN CORPUSCULAR VOLUME 94.8 FL (78-98); MEAN PLATELET VOLUME 10.3 FL (7.4-10.4); MONOCYTES # (AUTO) 0.3 X10'3 (0-0.9); MONOCYTES % (AUTO) 7.6 % (2-12); NEUTROPHILS # (AUTO) 2.2 X10'3 (1.8-7.7); NEUTROPHILS % (AUTO) 48.6 % (42-75); PLATELET COUNT 156 X10'3 (140-440); RED BLOOD COUNT 3.22 X10'6 (4.20-5.60); RED CELL DISTRIBUTION WIDTH 13.7 % (11.5-14.5); WHITE BLOOD COUNT 4.5 X10'3 (4.5-11.0)
--- NOTE | 2021-11-15 06:46 | NUR ---
Problems reprioritized. Patient report given, questions answered & plan of care reviewed with
[2021-11-15] MEDS: oxcarbazepine 150mg tablet PO SCH (07:12)
[2021-11-15] MEDS: enoxaparin 40mg/0.4ml syringe SUBCUT SCH (07:13)
[2021-11-15 07:21] LABS: ALBUMIN 2.8 G/DL (3.4-5.0); ANION GAP 8 (8-16); BLOOD UREA NITROGEN 18 MG/DL (7-18); BUN/CREATININE RATIO 33.3 (6.6-38.0); CALCIUM 8.3 MG/DL (8.5-10.1); CHLORIDE 113 MMOL/L (99-107); CREATININE 0.54 MG/DL (0.40-0.90); GLUCOSE 77 MG/DL (70-104); SODIUM 144 MMOL/L (135-145); eGFR > 90 ML/MIN
[2021-11-15] MEDS ORDERED: atorvastatin 20mg tablet PO SCH (08:00)
[2021-11-15] MEDS ORDERED: FLUoxetine 20mg capsule PO SCH (08:00)
[2021-11-15] MEDS: K and/or MAG REPLACEMENT MC SCH (08:08)
[2021-11-15] MEDS ORDERED: CIPR-202 PO (10:41)
[2021-11-15] MEDS ORDERED: CARV3.12 PO (10:41)
[2021-11-15] MEDS ORDERED: ASPI81TA52 PO (10:41)
== END 2021-11-15 12:08 | disposition home health service (06) | DRG 191 ==
LOC: ER 21:53 → UNDOADMIN 23:56 → ED HOLD 23:56 → MED 3N 11-14 04:42 → ED HOLD 11-14 04:42
PROVIDERS: ADMIT Internal Medicine; ATTEND Family Medicine
PROC: 4A023N7 Measurement of Cardiac Sampling and Pressure, Left Heart, Percutaneous Approach (ICD-10-PCS; principal; 2021-11-14)
PROC: B2111ZZ Fluoroscopy of Multiple Coronary Arteries using Low Osmolar Contrast (ICD-10-PCS; 2021-11-14)
PROC: 4A02XM4 Measurement of Cardiac Total Activity, External Approach (ICD-10-PCS; 2021-11-14)
PROC: 3E073KZ Introduction of Other Diagnostic Substance into Coronary Artery, Percutaneous Approach (ICD-10-PCS; 2021-11-14)
DX: I25.10 Atherosclerotic heart disease of native coronary artery without angina pectoris (principal); I69.351 Hemiplegia and hemiparesis following cerebral infarction affecting right dominant side; I25.82 Chronic total occlusion of coronary artery; E78.00 Pure hypercholesterolemia, unspecified; G40.909 Epilepsy, unspecified, not intractable, without status epilepticus; I48.91 Unspecified atrial fibrillation; E78.5 Hyperlipidemia, unspecified; I10 Essential (primary) hypertension; K21.9 Gastro-esophageal reflux disease without esophagitis; F32.A Depression, unspecified; G62.9 Polyneuropathy, unspecified; N39.0 Urinary tract infection, site not specified; I25.2 Old myocardial infarction; Z90.710 Acquired absence of both cervix and uterus; Z93.1 Gastrostomy status; Z88.0 Allergy status to penicillin; Z88.2 Allergy status to sulfonamides; Z88.6 Allergy status to analgesic agent; Z88.1 Allergy status to other antibiotic agents; Z79.82 Long term (current) use of aspirin; Z79.899 Other long term (current) drug therapy; Z79.02 Long term (current) use of antithrombotics/antiplatelets
CPT/HCPCS: 36415; 71045; 78452; 80048; 80053; 81001; 83735; 83880; 84132; 84484; 85025; 87077; 87088; 87186; 93005; 93017; 93306; 93458; 99152; 99285; A4620; A5120; A9500; C1769; C1894; G0378; J0280; J1644; J1650; J2250; J2270; J2785; J3010; J3490; J7030; Q9967

== ENCOUNTER 2021-12-02 16:01 | Inpatient (IN) | payer MEDICAID ==
[~2021-12-02] VITALS: Ht 152.4 cm; Wt 42.6 kg
[~2021-12-02 16:01] MED LIST changes: -ALBU8HFA PO; -ASPI-100 PO; +ASPI81TA52 PO; -BACL20TA PO; +CARV3.12 PO; -CARV3.123 PO; +CIPR-202 PO; -CLOP75TA34 PO; +CYCL5TAB PO; -FLUT1DIS20 INH; -HYDR-3965 PO; -LEVE10006 PO; -MECL-159 PO; -OMEP20CA16 PO; +OXCA150T14 PO
[2021-12-02] MEDS ORDERED: morphine 2 MG/ML inj. syringe IV ONE ×2 (16:50→18:20)
[2021-12-02] MEDS ORDERED: ondansetron/PF 4mg/2ml inj IV ONE (16:50)
[2021-12-02 17:52] LABS: ALANINE AMINOTRANSFERASE 57 U/L (12-78); ALBUMIN 3.5 G/DL (3.4-5.0); ALKALINE PHOSPHATASE 58 IU/L (46-116); ANION GAP 4 (8-16); ASPARTATE AMINO TRANSFERASE 32 U/L (10-37); BILIRUBIN,TOTAL 0.2 MG/DL (0.1-1.0); BLOOD UREA NITROGEN 14 MG/DL (7-18); BUN/CREATININE RATIO 20.3 (6.6-38.0); CALCIUM 8.9 MG/DL (8.5-10.1); CHLORIDE 99 MMOL/L (99-107); CREATININE 0.69 MG/DL (0.40-0.90); GLUCOSE 95 MG/DL (70-104); SODIUM 132 MMOL/L (135-145); eGFR 87 ML/MIN
[2021-12-02 18:05] LABS: C-REACTIVE PROTEIN < 0.05 MG/DL (0.0-0.5)
[2021-12-02 18:58] LABS: BASOPHILS % (AUTO) 0.5 % (0-1); EOSINOPHILS # (AUTO) 0.1 X10'3 (0-0.9); EOSINOPHILS % (AUTO) 2.2 % (0-6); HEMATOCRIT 33.9 % (35.0-45.0); HEMOGLOBIN 11.6 g/dl (12.0-16.0); LYMPHOCYTES # (AUTO) 1.2 X10'3 (1.1-4.8); LYMPHOCYTES % (AUTO) 26.9 % (21-51); MEAN CORPUSCULAR HEMOGLOBIN 31.4 PG (27.0-31.0); MEAN CORPUSCULAR HGB CONC 34.2 g/dL (33.0-36.5); MEAN CORPUSCULAR VOLUME 91.9 FL (78-98); MONOCYTES # (AUTO) 0.3 X10'3 (0-0.9); MONOCYTES % (AUTO) 5.6 % (2-12); NEUTROPHILS % (AUTO) 64.8 % (42-75); PLATELET COUNT 197 X10'3 (140-440); RED BLOOD COUNT 3.69 X10'6 (4.20-5.60); RED CELL DISTRIBUTION WIDTH 13.2 % (11.5-14.5); WHITE BLOOD COUNT 4.6 X10'3 (4.5-11.0)
[2021-12-02] MEDS ORDERED: ATOR20TA66 PO (19:16)
[2021-12-02] MEDS ORDERED: LEVE500T PO (19:30)
[2021-12-02] MEDS ORDERED: ISOS30TA84 PO (19:30)
[2021-12-02] MEDS ORDERED: OMEP20CA16 PO (19:30)
[2021-12-02] MEDS ORDERED: ASPI-1264 PO (19:30)
[2021-12-02] MEDS ORDERED: CLOP75TA34 PO (19:30)
[2021-12-02] MEDS ORDERED: BACL20TA PO (19:30)
[2021-12-02] MEDS ORDERED: CARV3.1244 PO (19:30)
[2021-12-02] MEDS ORDERED: magnesium 2GM in 50ml NS 50 ML IV PRN (19:35)
[2021-12-02] MEDS ORDERED: potassium Cl 20 mEq SR tablet PO PRN ×2 (19:35)
[2021-12-02] MEDS ORDERED: potassium CL 10mEq/100ml bag 100 ML IV PRN (19:35)
[2021-12-02] MEDS ORDERED: magnesium Cl slow-release 64mg tablet PO PRN (19:35)
[2021-12-02] MEDS ORDERED: acetaminophen 325mg tablet PO PRN (19:35)
[2021-12-02] MEDS ORDERED: mag hydrox/Alum hydrox/simeth 30ml oral suspension PO PRN (19:35)
[2021-12-02] MEDS ORDERED: magnesium 4gm in 100ml NS 100 ML IV PRN (19:35)
[2021-12-02] MEDS ORDERED: magnesium hydroxide 30ml (MOM) UD suspension PO PRN (19:35)
[2021-12-02 19:45] LABS: MAGNESIUM 1.9 MG/DL (1.5-2.4)
[2021-12-02] MEDS ORDERED: docusate sod 100mg capsule PO SCH (20:00)
[2021-12-02] MEDS: K and/or MAG REPLACEMENT MC SCH (20:00)
[2021-12-02] MEDS ORDERED: non-formulary drug (Baclofen 1 TAB) PO PRN (20:35)
[2021-12-02] MEDS ORDERED: oxyCODONE/APAP 5-325mg tablet PO PRN (20:35)
[2021-12-02] MEDS ORDERED: CYCLOBENZAPRINE HCL PO PRN (20:35)
[2021-12-02] MEDS ORDERED: baclofen 10mg tablet PO PRN (20:45)
[2021-12-02] MEDS ORDERED: cyclobenzaprine 10mg tablet PO PRN (20:45)
[2021-12-02] MEDS: enoxaparin 40mg/0.4ml syringe SQ SCH (20:58)
[2021-12-02] MEDS ORDERED: gabapentin 100mg capsule PO SCH (21:00)
[2021-12-02] MEDS ORDERED: non-formulary drug (Omeprazole 1 CAP) PO SCH (21:00)
[2021-12-02] MEDS ORDERED: temazepam 15mg capsule PO PRN (21:00)
[2021-12-02] MEDS ORDERED: FLUoxetine 20mg capsule PO SCH (21:00)
--- NOTE | 2021-12-02 21:19 | NUR ---
Report given to LEXX Rutherford
[2021-12-02] MEDS: morphine 2 MG/ML inj. syringe IV PRN (23:37)
[2021-12-03] VITALS: BP 119/57
[2021-12-03] MEDS: morphine 2 MG/ML inj. syringe IV PRN ×4 (05:28→19:35)
[2021-12-03 06:06] LABS: BASOPHILS % (AUTO) 0.5 % (0-1); EOSINOPHILS # (AUTO) 0.1 X10'3 (0-0.9); EOSINOPHILS % (AUTO) 2.3 % (0-6); HEMATOCRIT 30.6 % (35.0-45.0); HEMOGLOBIN 10.5 g/dl (12.0-16.0); LYMPHOCYTES # (AUTO) 1.8 X10'3 (1.1-4.8); MEAN CORPUSCULAR HEMOGLOBIN 31.5 PG (27.0-31.0); MEAN CORPUSCULAR HGB CONC 34.3 g/dL (33.0-36.5); MEAN CORPUSCULAR VOLUME 91.9 FL (78-98); MEAN PLATELET VOLUME 9.7 FL (7.4-10.4); MONOCYTES # (AUTO) 0.2 X10'3 (0-0.9); NEUTROPHILS # (AUTO) 1.9 X10'3 (1.8-7.7); NEUTROPHILS % (AUTO) 47.2 % (42-75); PLATELET COUNT 174 X10'3 (140-440); RED BLOOD COUNT 3.33 X10'6 (4.20-5.60); RED CELL DISTRIBUTION WIDTH 12.9 % (11.5-14.5); WHITE BLOOD COUNT 4.1 X10'3 (4.5-11.0)
[2021-12-03 06:26] LABS: ALANINE AMINOTRANSFERASE 53 U/L (12-78); ALBUMIN 3.1 G/DL (3.4-5.0); ALBUMIN/GLOBULIN RATIO 0.9 (1.1-1.5); ALKALINE PHOSPHATASE 52 IU/L (46-116); ASPARTATE AMINO TRANSFERASE 31 U/L (10-37); BILIRUBIN,TOTAL 0.2 MG/DL (0.1-1.0); BLOOD UREA NITROGEN 13 MG/DL (7-18); BUN/CREATININE RATIO 32.5 (6.6-38.0); CALCIUM 8.8 MG/DL (8.5-10.1); GLUCOSE 62 MG/DL (70-104); MAGNESIUM 1.8 MG/DL (1.5-2.4); TOTAL CARBON DIOXIDE 26.9 MMOL/L (24-32); TOTAL PROTEIN 6.4 G/DL (6.4-8.2); eGFR > 90 ML/MIN
--- NOTE | 2021-12-03 06:30 | NUR ---
Patient in room CRYSTAL 347. I have received report from Layton HALLMAN and had the opportunity to ask questions and assume patient care.
--- NOTE | 2021-12-03 06:34 | NUR ---
Patient admitted from ER around 2200 on 12/02, in stable condition, accompanied by a nurse, on the hospital bed. Report received all due medications with no adverse reaction. Report given to the dayshift nurse, all questions answered for the good continuation of care.
[2021-12-03 07:00] VITALS: BP 96/45
[2021-12-03] MEDS ORDERED: pantoprazole 40mg Tablet.DR PO SCH (07:30)
[2021-12-03] MEDS ORDERED: oxcarbazepine 150mg tablet PO SCH (08:00)
[2021-12-03] MEDS ORDERED: clopidogrel 75mg tablet PO SCH (08:00)
[2021-12-03] MEDS ORDERED: isosorbide mononitrate 30mg tab.SR.24H PO SCH (08:00)
[2021-12-03] MEDS ORDERED: carVEDilol 3.125mg tablet PO SCH (08:00)
[2021-12-03] MEDS ORDERED: levetiracetam 250mg tablet PO SCH (08:00)
[2021-12-03] MEDS ORDERED: atorvastatin 20mg tablet PO SCH (08:00)
[2021-12-03] MEDS ORDERED: aspirin 325mg tablet PO SCH (08:00)
[2021-12-03] MEDS: K and/or MAG REPLACEMENT MC SCH ×2 (08:00→20:00)
--- NOTE | 2021-12-03 08:41 | NUR ---
TF consult: Pt admitted w/ R hip pain s/p fall though CT shows no fracture per EMR. Pt also has expressive aphasia per MD note. Per RN pt has a PEG and does bolus feeds using Isosource 1.5. Will place bolus TF recs below. Pending BM though receiving routine colace. Noted low BMI though this is likely baseline wt based on previous admits Will continue to monitor and adjust recommendations as appropriate. Recs: 1. Bolus TF via PEG four times a day using Jevity 1.2 at 270ml/bolus to provide 1080ml volume, 1296kcals, 60g protein, 872ml free water. Begin at 85ml/bolus and advance by 50ml/bolus feed as tolerated to goal. Feed at 0800, 1200, 1600, 2000. 2. Additional 40ml water flush before and after each bolus; monitor serum Na. Currently 132. 3. PALB Q / 4. Daily wts 5 Recommend returning to home TF regimen once discharged Addendum: 12/03/21 at [address] Amended: Links added.
--- NOTE | 2021-12-03 09:57 | NUR ---
PAGER ID: [phone] MESSAGE: Adama Surg [id number] RE: [id number] Shyam Chao Patients medication are order as PO and only takes intake through PEG tube. THanks Adama
[2021-12-03] MEDS ORDERED: acetaminophen 325mg tablet PEG PRN (10:16)
[2021-12-03] MEDS ORDERED: acetaminophen 325mg/10.15ml oral unit dose solution PEG PRN (10:18)
[2021-12-03] MEDS ORDERED: cyclobenzaprine 10mg tablet PEG PRN (10:19)
[2021-12-03] MEDS ORDERED: baclofen 10mg tablet PEG PRN (10:19)
[2021-12-03] MEDS ORDERED: fluoxetine 20mg/5ml UD cup PEG SCH (10:20)
[2021-12-03] MEDS ORDERED: mag hydrox/Alum hydrox/simeth 30ml oral suspension PEG PRN (10:22)
[2021-12-03] MEDS ORDERED: magnesium hydroxide 30ml (MOM) UD suspension PEG PRN (10:22)
[2021-12-03] MEDS ORDERED: oxyCODONE/APAP 5-325mg tablet PEG PRN (10:23)
[2021-12-03 11:00] VITALS: BP 95/42
--- NOTE | 2021-12-03 11:09 | NUR ---
PAGER ID: [phone] MESSAGE: Adama Surg [phone] re: [phone] Jeremie, R Imdur is the only medications that could not be converted to PEG. Thanks Adama
[2021-12-03] MEDS: ondansetron/PF 4mg/2ml inj IV PRN ×2 (11:55→20:56)
[2021-12-03 14:35] LABS: POTASSIUM 4.1 MMOL/L (3.3-5.1)
[2021-12-03] MEDS: gabapentin 100mg capsule PEG SCH ×2 (14:47→22:16)
--- NOTE | 2021-12-03 18:27 | NUR ---
Problems reprioritized. Patient report given, questions answered & plan of care reviewed with Sally HALLMAN.
--- NOTE | 2021-12-03 18:30 | NUR ---
Patient in room CRYSTAL 347. I have received report from Adama HALLMAN and had the opportunity to ask questions and assume patient care.
[2021-12-03 19:00] VITALS: BP 104/46
[2021-12-03] MEDS ORDERED: DEXTROSE 15 GM of carb/4 tabs (each vial/BOTTLE has 4 tablets) PO PRN (20:30)
[2021-12-03] MEDS ORDERED: glucagon, human recombinant 1mg kit SUBCUT PRN (20:30)
[2021-12-03] MEDS ORDERED: dextrose 50%-water 50ml dispensing syringe IV PRN ×2 (20:30)
[2021-12-03] MEDS: DEXTROSE 15 GM of carb/4 tabs (each vial/BOTTLE has 4 tablets) PO PRN ×2 (20:44→20:46)
--- NOTE | 2021-12-03 20:45 | NUR ---
Dex tabs given for a low blood sugar of 63. Rechecked 15mins later and blood sugar went up to 92.
[2021-12-03 22:15] VITALS: BP 112/58
[2021-12-03] MEDS: docusate sodium 100mg/10ml UD cup PEG SCH (22:15)
[2021-12-03] MEDS: oxcarbazepine 150mg tablet PEG SCH (22:16)
[2021-12-03] MEDS: levetiracetam 250mg tablet PEG SCH (22:16)
[2021-12-03] MEDS: temazepam 15mg capsule PEG PRN (22:17)
[2021-12-03] MEDS: carVEDilol 3.125mg tablet PEG SCH (22:19)
[2021-12-03] MEDS: enoxaparin 40mg/0.4ml syringe SQ SCH (22:19)
[2021-12-04] VITALS (7 sets, daily range): BP systolic 90–114; BP diastolic 35–50
[2021-12-04] MEDS: morphine 2 MG/ML inj. syringe IV PRN ×2 (02:47→07:12)
--- NOTE | 2021-12-04 06:30 | NUR ---
Patient in room CRYSTAL 347. I have received report from Sally HALLMAN and had the opportunity to ask questions and assume patient care.
--- NOTE | 2021-12-04 06:46 | NUR ---
Problems reprioritized. Patient report given, questions answered & plan of care reviewed with Adama RN and skilled nursing facilities professional Carissa.
[2021-12-04 07:00] LABS: BASOPHILS % (AUTO) 0.4 % (0-1); EOSINOPHILS # (AUTO) 0.1 X10'3 (0-0.9); EOSINOPHILS % (AUTO) 2.3 % (0-6); HEMATOCRIT 29.9 % (35.0-45.0); HEMOGLOBIN 10.1 g/dl (12.0-16.0); LYMPHOCYTES # (AUTO) 1.8 X10'3 (1.1-4.8); LYMPHOCYTES % (AUTO) 46.2 % (21-51); MEAN CORPUSCULAR HEMOGLOBIN 31.1 PG (27.0-31.0); MEAN CORPUSCULAR HGB CONC 33.8 g/dL (33.0-36.5); MONOCYTES # (AUTO) 0.3 X10'3 (0-0.9); MONOCYTES % (AUTO) 8.1 % (2-12); NEUTROPHILS # (AUTO) 1.6 X10'3 (1.8-7.7); PLATELET COUNT 181 X10'3 (140-440); RED BLOOD COUNT 3.25 X10'6 (4.20-5.60); RED CELL DISTRIBUTION WIDTH 12.7 % (11.5-14.5); WHITE BLOOD COUNT 3.8 X10'3 (4.5-11.0)
[2021-12-04] MEDS: aspirin 325mg tablet PEG SCH (07:32)
[2021-12-04] MEDS: docusate sodium 100mg/10ml UD cup PEG SCH ×2 (07:32→19:37)
[2021-12-04] MEDS: atorvastatin 20mg tablet PEG SCH (07:33)
[2021-12-04] MEDS: levetiracetam 250mg tablet PEG SCH ×2 (07:33→19:37)
[2021-12-04] MEDS: carVEDilol 3.125mg tablet PEG SCH ×2 (07:33→19:42)
[2021-12-04] MEDS: oxcarbazepine 150mg tablet PEG SCH ×2 (07:34→19:37)
[2021-12-04] MEDS: clopidogrel 75mg tablet PEG SCH (07:34)
[2021-12-04] MEDS: gabapentin 100mg capsule PEG SCH ×3 (07:34→19:41)
[2021-12-04] MEDS: lansoprazole 15mg solutab PEG SCH (07:34)
[2021-12-04] MEDS: K and/or MAG REPLACEMENT MC SCH ×2 (08:00→19:30)
--- NOTE | 2021-12-04 08:00 | NUR ---
Patient not DM so did not check after clearing with clinical enterostomal nurse, will continue to check BG BID due to prior low blood glucose.
[2021-12-04 08:02] LABS: ALANINE AMINOTRANSFERASE 52 U/L (12-78); ALKALINE PHOSPHATASE 58 IU/L (46-116); ANION GAP 7 (8-16); ASPARTATE AMINO TRANSFERASE 26 U/L (10-37); BILIRUBIN,TOTAL 0.2 MG/DL (0.1-1.0); BLOOD UREA NITROGEN 13 MG/DL (7-18); BUN/CREATININE RATIO 26.5 (6.6-38.0); CALCIUM 8.5 MG/DL (8.5-10.1); CHLORIDE 102 MMOL/L (99-107); CREATININE 0.49 MG/DL (0.40-0.90); GLUCOSE 76 MG/DL (70-104); MAGNESIUM 1.8 MG/DL (1.5-2.4); POTASSIUM 4.1 MMOL/L (3.5-5.1); PREALBUMIN 21.1 MG/DL (19-36); SODIUM 136 MMOL/L (135-145); TOTAL CARBON DIOXIDE 26.7 MMOL/L (24-32); TOTAL PROTEIN 6.1 G/DL (6.4-8.2); eGFR > 90 ML/MIN
[2021-12-04] MEDS ORDERED: HYDROmorphone inj. 0.5 MG/0.5 ML DISP.SYRIN IV PRN (10:40)
--- NOTE | 2021-12-04 18:15 | NUR ---
Problems reprioritized. Patient report given, questions answered & plan of care reviewed with Alicia HALLMAN.
[2021-12-04] MEDS: HYDROmorphone 1 mg/ml syringe IV PRN (18:17)
--- NOTE | 2021-12-04 18:32 | NUR ---
Patient in room CRYSTAL 347. I have received report from Adama HALLMAN and had the opportunity to ask questions and assume patient care.
--- NOTE | 2021-12-04 18:33 | NUR ---
Problems reprioritized. Patient report given to Alicia, questions answered & plan of care reviewed with .
[2021-12-04] MEDS: enoxaparin 40mg/0.4ml syringe SQ SCH (19:38)
[2021-12-04] MEDS: fluoxetine 20mg/5ml UD cup PEG SCH (19:41)
[2021-12-05] VITALS: BP 95/41
[2021-12-05] MEDS: HYDROmorphone 1 mg/ml syringe IV PRN ×2 (00:04→04:18)
--- NOTE | 2021-12-05 06:09 | NUR ---
Problems reprioritized. Patient report given, questions answered & plan of care reviewed with Chan HALLMAN.
[2021-12-05 06:14] LABS: BASOPHILS % (AUTO) 0.4 % (0-1); EOSINOPHILS # (AUTO) 0.1 X10'3 (0-0.9); EOSINOPHILS % (AUTO) 2.1 % (0-6); HEMATOCRIT 30.8 % (35.0-45.0); HEMOGLOBIN 10.6 g/dl (12.0-16.0); LYMPHOCYTES # (AUTO) 1.5 X10'3 (1.1-4.8); LYMPHOCYTES % (AUTO) 30.5 % (21-51); MEAN CORPUSCULAR HEMOGLOBIN 31.4 PG (27.0-31.0); MEAN CORPUSCULAR HGB CONC 34.2 g/dL (33.0-36.5); MEAN CORPUSCULAR VOLUME 91.7 FL (78-98); MEAN PLATELET VOLUME 10.2 FL (7.4-10.4); MONOCYTES # (AUTO) 0.3 X10'3 (0-0.9); MONOCYTES % (AUTO) 6.1 % (2-12); NEUTROPHILS # (AUTO) 3.1 X10'3 (1.8-7.7); NEUTROPHILS % (AUTO) 60.9 % (42-75); PLATELET COUNT 195 X10'3 (140-440); RED BLOOD COUNT 3.36 X10'6 (4.20-5.60); RED CELL DISTRIBUTION WIDTH 13.2 % (11.5-14.5); WHITE BLOOD COUNT 5.1 X10'3 (4.5-11.0)
[2021-12-05 06:51] LABS: ALANINE AMINOTRANSFERASE 48 U/L (12-78); ALBUMIN 3.3 G/DL (3.4-5.0); ALKALINE PHOSPHATASE 59 IU/L (46-116); ANION GAP 7 (8-16); ASPARTATE AMINO TRANSFERASE 19 U/L (10-37); BILIRUBIN,TOTAL 0.2 MG/DL (0.1-1.0); BLOOD UREA NITROGEN 14 MG/DL (7-18); BUN/CREATININE RATIO 30.4 (6.6-38.0); CALCIUM 8.6 MG/DL (8.5-10.1); CHLORIDE 102 MMOL/L (99-107); CREATININE 0.46 MG/DL (0.40-0.90); GLUCOSE 102 MG/DL (70-104); MAGNESIUM 1.9 MG/DL (1.5-2.4); POTASSIUM 4.3 MMOL/L (3.5-5.1); SODIUM 139 MMOL/L (135-145); TOTAL CARBON DIOXIDE 30.5 MMOL/L (24-32); TOTAL PROTEIN 6.7 G/DL (6.4-8.2); eGFR > 90 ML/MIN
[2021-12-05] MEDS: K and/or MAG REPLACEMENT MC SCH ×2 (07:01→19:37)
[2021-12-05 07:02] VITALS: BP 118/67
[2021-12-05] MEDS: docusate sodium 100mg/10ml UD cup PEG SCH ×2 (07:36→19:30)
[2021-12-05] MEDS: aspirin 325mg tablet PEG SCH (07:36)
[2021-12-05] MEDS: clopidogrel 75mg tablet PEG SCH (07:37)
[2021-12-05] MEDS: gabapentin 100mg capsule PEG SCH ×3 (07:37→22:02)
[2021-12-05] MEDS: levetiracetam 250mg tablet PEG SCH ×2 (07:37→19:35)
[2021-12-05] MEDS: lansoprazole 15mg solutab PEG SCH (07:37)
[2021-12-05] MEDS: atorvastatin 20mg tablet PEG SCH (07:37)
[2021-12-05] MEDS: carVEDilol 3.125mg tablet PEG SCH ×2 (07:37→19:37)
[2021-12-05] MEDS: oxcarbazepine 150mg tablet PEG SCH ×2 (07:37→19:31)
[2021-12-05 11:00] VITALS: BP 125/89
[2021-12-05] MEDS: oxyCODONE/APAP 10/325mg tablet PEG PRN ×2 (12:21→19:34)
[2021-12-05] MEDS: enoxaparin 40mg/0.4ml syringe SQ SCH (19:36)
[2021-12-05 20:00] VITALS: BP 92/45
[2021-12-05] MEDS: temazepam 15mg capsule PEG PRN (21:51)
[2021-12-05] MEDS: fluoxetine 20mg/5ml UD cup PEG SCH (21:52)
[2021-12-06] VITALS: BP 105/50
[2021-12-06] MEDS: oxyCODONE/APAP 10/325mg tablet PEG PRN ×3 (04:37→15:33)
[2021-12-06 05:57] LABS: BASOPHILS % (AUTO) 0.2 % (0-1); EOSINOPHILS # (AUTO) 0.1 X10'3 (0-0.9); HEMATOCRIT 28.9 % (35.0-45.0); HEMOGLOBIN 9.8 g/dl (12.0-16.0); LYMPHOCYTES # (AUTO) 1.5 X10'3 (1.1-4.8); LYMPHOCYTES % (AUTO) 41.7 % (21-51); MEAN CORPUSCULAR HEMOGLOBIN 31.4 PG (27.0-31.0); MEAN CORPUSCULAR HGB CONC 34.1 g/dL (33.0-36.5); MEAN CORPUSCULAR VOLUME 92.1 FL (78-98); MONOCYTES # (AUTO) 0.3 X10'3 (0-0.9); MONOCYTES % (AUTO) 7.7 % (2-12); NEUTROPHILS # (AUTO) 1.8 X10'3 (1.8-7.7); NEUTROPHILS % (AUTO) 48.4 % (42-75); PLATELET COUNT 163 X10'3 (140-440); RED BLOOD COUNT 3.14 X10'6 (4.20-5.60); WHITE BLOOD COUNT 3.7 X10'3 (4.5-11.0)
[2021-12-06 06:15] LABS: ALANINE AMINOTRANSFERASE 34 U/L (12-78); ALBUMIN 3.1 G/DL (3.4-5.0); ALKALINE PHOSPHATASE 52 IU/L (46-116); ANION GAP 4 (8-16); ASPARTATE AMINO TRANSFERASE 15 U/L (10-37); BILIRUBIN,TOTAL 0.2 MG/DL (0.1-1.0); BLOOD UREA NITROGEN 13 MG/DL (7-18); CALCIUM 8.5 MG/DL (8.5-10.1); CHLORIDE 103 MMOL/L (99-107); CREATININE 0.52 MG/DL (0.40-0.90); GLUCOSE 95 MG/DL (70-104); MAGNESIUM 1.9 MG/DL (1.5-2.4); POTASSIUM 4.2 MMOL/L (3.5-5.1); SODIUM 139 MMOL/L (135-145); TOTAL CARBON DIOXIDE 32.2 MMOL/L (24-32); TOTAL PROTEIN 6.3 G/DL (6.4-8.2); eGFR > 90 ML/MIN
--- NOTE | 2021-12-06 06:39 | NUR ---
Problems reprioritized. Patient report given, questions answered & plan of care reviewed with Carmen HALLMAN.
--- NOTE | 2021-12-06 06:48 | NUR ---
Patient in room CRYSTAL 340. I have received report from LEXX Vargas and had the opportunity to ask questions and assume patient care.
[2021-12-06 07:45] VITALS: BP 102/41
[2021-12-06] MEDS: K and/or MAG REPLACEMENT MC SCH (08:00)
[2021-12-06] MEDS: carVEDilol 3.125mg tablet PEG SCH (08:00)
[2021-12-06] MEDS ORDERED: fluoxetine 20mg/5ml UD cup PO SCH (09:40)
[2021-12-06] MEDS: clopidogrel 75mg tablet PEG SCH (09:52)
[2021-12-06] MEDS: gabapentin 100mg capsule PEG SCH ×2 (09:52→13:49)
[2021-12-06] MEDS: oxcarbazepine 150mg tablet PEG SCH (09:53)
[2021-12-06] MEDS: atorvastatin 20mg tablet PEG SCH (09:53)
[2021-12-06] MEDS: docusate sodium 100mg/10ml UD cup PEG SCH (09:54)
[2021-12-06] MEDS: aspirin 325mg tablet PEG SCH (09:54)
[2021-12-06] MEDS: levetiracetam 250mg tablet PEG SCH (09:54)
[2021-12-06] MEDS: lansoprazole 15mg solutab PEG SCH (09:55)
[2021-12-06] MEDS: enoxaparin 40mg/0.4ml syringe SQ SCH (09:55)
[2021-12-06] MEDS ORDERED: oxyCODONE/APAP 5-325mg tablet PEG PRN (10:00)
[2021-12-06] MEDS ORDERED: FLUO40CA26 PO (10:53)
--- NOTE | 2021-12-06 15:52 | NUR ---
PAGER ID: [phone] MESSAGE: [id number] Jeremie Guillaume taken out 4 hours ago patient has not voided has 181 ml in bladder. Do you want to discharge her with a Guillaume? She is getting home health at home. Kellie [phone]
--- NOTE | 2021-12-06 15:56 | NUR ---
Bladder scanned the patient as she has not peed since noon. Scanner shows >181 ml. Notified MD who prescribed a Guillaume catheter.
--- NOTE | 2021-12-06 15:59 | NUR ---
Went over discharge instructions over the telephone with Daughter Poonam
[2021-12-06] MEDS: ondansetron/PF 4mg/2ml inj IV PRN (16:31)
--- NOTE | 2021-12-06 17:10 | NUR ---
Patient discharged to home, prescriptions sent to pharmacy, dc instructions given to both patient and daughter both were in agreement with instructions. Guillaume placed prior to dc as patient was not able to void on her own; secured with a leg bag. 20 guage piv removed from left AC cannula intact. Left via wheelchair to private vehicle.
--- NOTE | 2021-12-06 17:50 | NUR ---
agree with orientee documentation
== END 2021-12-06 17:10 | disposition home health service (06) | DRG 351 ==
LOC: ER 16:01 → ED HOLD 19:34 → SUR 3N 21:51
PROVIDERS: ADMIT Internal Medicine; ATTEND Family Medicine
DX: S76.011A Strain of muscle, fascia and tendon of right hip, initial encounter (principal); I69.351 Hemiplegia and hemiparesis following cerebral infarction affecting right dominant side; I48.91 Unspecified atrial fibrillation; G40.909 Epilepsy, unspecified, not intractable, without status epilepticus; R13.0 Aphagia; D64.9 Anemia, unspecified; E78.00 Pure hypercholesterolemia, unspecified; E78.5 Hyperlipidemia, unspecified; F17.210 Nicotine dependence, cigarettes, uncomplicated; F32.A Depression, unspecified; K21.9 Gastro-esophageal reflux disease without esophagitis; W18.39XA Other fall on same level, initial encounter; Z96.641 Presence of right artificial hip joint; G89.29 Other chronic pain; M54.9 Dorsalgia, unspecified; I10 Essential (primary) hypertension; I25.10 Atherosclerotic heart disease of native coronary artery without angina pectoris; I25.2 Old myocardial infarction; I69.320 Aphasia following cerebral infarction; Z90.710 Acquired absence of both cervix and uterus; Z93.1 Gastrostomy status; Z88.0 Allergy status to penicillin; Z88.2 Allergy status to sulfonamides; Z88.8 Allergy status to other drugs, medicaments and biological substances; Y93.89 Activity, other specified; Y92.89 Other specified places as the place of occurrence of the external cause; Y99.8 Other external cause status; Z79.899 Other long term (current) drug therapy; Z79.82 Long term (current) use of aspirin
CPT/HCPCS: 36415; 73502; 73700; 80053; 82948; 83735; 84134; 84145; 85025; 85651; 86140; 92508; 92616; 96374; 96375; 96376; 97110; 97161; 97530; 99285; G0378; J1170; J1650; J2270; J2405

== ENCOUNTER 2021-12-07 02:05 | Emergency (ER) | payer MEDICAID ==
[~2021-12-07 02:05] MED LIST changes: +ASPI-1264 PO; -ASPI81TA52 PO; +ATOR20TA66 PO; -ATOR40TA72 PO; +BACL20TA PO; -CARV3.12 PO; +CARV3.1244 PO; -CIPR-202 PO; +CLOP75TA34 PO; -FLUO-167 PO; +FLUO40CA26 PO; +ISOS30TA84 PO; +LEVE500T PO; +OMEP20CA16 PO
--- NOTE | 2021-12-07 02:22 | NUR ---
PATIENT HAS A 16F CATHETERN WITH A SMALL AMOUNT OF CLEAR URINE IN THE BAG
[2021-12-07] MEDS: LIDOcaine 2% 10ml TOPICAL JELLY (Urojet) TP ONE (04:42)
--- NOTE | 2021-12-07 04:49 | NUR ---
bladder scan showed 33cc
--- NOTE | 2021-12-07 04:50 | NUR ---
stapleton catheter changed to 18f
--- NOTE | 2021-12-07 04:51 | NUR ---
called daughter angie at [phone] she states that she is on her way, she was updated on the status of the patient
[2021-12-07 04:57] VITALS: BP 114/63
== END 2021-12-07 05:21 | disposition home or self-care (01) ==
LOC: ER 02:07
DX: T83.031A Leakage of indwelling urethral catheter, initial encounter (principal); I25.10 Atherosclerotic heart disease of native coronary artery without angina pectoris; E78.00 Pure hypercholesterolemia, unspecified; I10 Essential (primary) hypertension; I25.2 Old myocardial infarction; K21.9 Gastro-esophageal reflux disease without esophagitis; G89.29 Other chronic pain; F32.A Depression, unspecified; Z86.73 Personal history of transient ischemic attack (TIA), and cerebral infarction without residual deficits; Z86.69 Personal history of other diseases of the nervous system and sense organs; Z90.710 Acquired absence of both cervix and uterus; Z98.890 Other specified postprocedural states; Z88.0 Allergy status to penicillin; Z88.2 Allergy status to sulfonamides; Z88.1 Allergy status to other antibiotic agents; Z88.6 Allergy status to analgesic agent; Z79.82 Long term (current) use of aspirin; Z79.899 Other long term (current) drug therapy; Y84.6 Urinary catheterization as the cause of abnormal reaction of the patient, or of later complication, without mention of misadventure at the time of the procedure
CPT/HCPCS: 51702; 99284

== ENCOUNTER 2021-12-08 19:32 | Emergency (ER) | payer MEDICAID ==
[~2021-12-08] VITALS: Ht 162.6 cm; Wt 38.2 kg
[2021-12-08 21:00] LABS: BASOPHILS % (AUTO) 0.4 % (0-1); EOSINOPHILS # (AUTO) 0.1 X10'3 (0-0.9); EOSINOPHILS % (AUTO) 1.5 % (0-6); HEMATOCRIT 32.3 % (35.0-45.0); LYMPHOCYTES # (AUTO) 0.9 X10'3 (1.1-4.8); LYMPHOCYTES % (AUTO) 22.7 % (21-51); MEAN CORPUSCULAR HEMOGLOBIN 31.3 PG (27.0-31.0); MEAN CORPUSCULAR HGB CONC 33.9 g/dL (33.0-36.5); MEAN CORPUSCULAR VOLUME 92.4 FL (78-98); MEAN PLATELET VOLUME 9.7 FL (7.4-10.4); MONOCYTES # (AUTO) 0.2 X10'3 (0-0.9); NEUTROPHILS # (AUTO) 2.6 X10'3 (1.8-7.7); NEUTROPHILS % (AUTO) 69.4 % (42-75); PLATELET COUNT 214 X10'3 (140-440); RED CELL DISTRIBUTION WIDTH 13.2 % (11.5-14.5); WHITE BLOOD COUNT 3.8 X10'3 (4.5-11.0)
[2021-12-08 21:11] LABS: ALANINE AMINOTRANSFERASE 37 U/L (12-78); ALBUMIN 3.2 G/DL (3.4-5.0); ALBUMIN/GLOBULIN RATIO 0.8 (1.1-1.5); ALKALINE PHOSPHATASE 59 IU/L (46-116); ANION GAP 6 (8-16); ASPARTATE AMINO TRANSFERASE 23 U/L (10-37); BILIRUBIN,TOTAL 0.2 MG/DL (0.1-1.0); BLOOD UREA NITROGEN 19 MG/DL (7-18); BUN/CREATININE RATIO 30.2 (6.6-38.0); CALCIUM 8.8 MG/DL (8.5-10.1); CHLORIDE 105 MMOL/L (99-107); CREATININE 0.63 MG/DL (0.40-0.90); GLUCOSE 173 MG/DL (70-104); POTASSIUM 3.8 MMOL/L (3.5-5.1); SODIUM 140 MMOL/L (135-145); eGFR > 90 ML/MIN
[2021-12-08] MEDS ORDERED: LIDOcaine 2% 10ml TOPICAL JELLY (Urojet) TP ONE (22:50)
[2021-12-08 23:10] VITALS: BP 109/64
== END 2021-12-08 23:14 | disposition home or self-care (01) ==
LOC: ER 19:33
DX: Z13.89 Encounter for screening for other disorder (principal); I25.10 Atherosclerotic heart disease of native coronary artery without angina pectoris; E78.00 Pure hypercholesterolemia, unspecified; I10 Essential (primary) hypertension; I25.2 Old myocardial infarction; K21.9 Gastro-esophageal reflux disease without esophagitis; G89.29 Other chronic pain; F32.A Depression, unspecified; Z86.73 Personal history of transient ischemic attack (TIA), and cerebral infarction without residual deficits; Z86.69 Personal history of other diseases of the nervous system and sense organs; Z90.710 Acquired absence of both cervix and uterus; Z98.890 Other specified postprocedural states; Z88.0 Allergy status to penicillin; Z88.2 Allergy status to sulfonamides; Z88.1 Allergy status to other antibiotic agents; Z88.6 Allergy status to analgesic agent; Z79.82 Long term (current) use of aspirin; Z79.899 Other long term (current) drug therapy
CPT/HCPCS: 36415; 51702; 71045; 80053; 85025; 99284

== ENCOUNTER 2021-12-17 18:54 | Emergency (ER) | payer MEDICAID ==
[~2021-12-17] VITALS: Ht 152.4 cm; Wt 39.1 kg
[2021-12-17] MEDS ORDERED: ondansetron/PF 4mg/2ml inj IV ONE (20:30)
[2021-12-17 20:53] LABS: BASOPHILS % (AUTO) 0.4 % (0-1); EOSINOPHILS # (AUTO) 0.1 X10'3 (0-0.9); EOSINOPHILS % (AUTO) 2.3 % (0-6); HEMATOCRIT 32.8 % (35.0-45.0); LYMPHOCYTES # (AUTO) 1.1 X10'3 (1.1-4.8); MEAN CORPUSCULAR HEMOGLOBIN 30.8 PG (27.0-31.0); MEAN CORPUSCULAR HGB CONC 33.5 g/dL (33.0-36.5); MEAN CORPUSCULAR VOLUME 91.9 FL (78-98); MEAN PLATELET VOLUME 9.8 FL (7.4-10.4); MONOCYTES # (AUTO) 0.3 X10'3 (0-0.9); NEUTROPHILS # (AUTO) 2.6 X10'3 (1.8-7.7); NEUTROPHILS % (AUTO) 63.3 % (42-75); PLATELET COUNT 250 X10'3 (140-440); RED BLOOD COUNT 3.57 X10'6 (4.20-5.60); RED CELL DISTRIBUTION WIDTH 13.2 % (11.5-14.5); WHITE BLOOD COUNT 4.1 X10'3 (4.5-11.0)
[2021-12-17 21:00] LABS: ALANINE AMINOTRANSFERASE 51 U/L (12-78); ALBUMIN 3.4 G/DL (3.4-5.0); ALBUMIN/GLOBULIN RATIO 0.9 (1.1-1.5); ALKALINE PHOSPHATASE 57 IU/L (46-116); ANION GAP 8 (8-16); ASPARTATE AMINO TRANSFERASE 29 U/L (10-37); BILIRUBIN,TOTAL 0.1 MG/DL (0.1-1.0); BLOOD UREA NITROGEN 17 MG/DL (7-18); BUN/CREATININE RATIO 31.5 (6.6-38.0); CHLORIDE 102 MMOL/L (99-107); CREATININE 0.54 MG/DL (0.40-0.90); GLUCOSE 95 MG/DL (70-104); LIPASE 94 U/L (73-393); POTASSIUM 4.2 MMOL/L (3.5-5.1); SODIUM 140 MMOL/L (135-145); TOTAL CARBON DIOXIDE 30.4 MMOL/L (24-32); eGFR > 90 ML/MIN
[2021-12-17 21:29] LABS: CLARITY,URINE CLOUDY (Clear); COLOR,URINE YELLOW (Yellow); GLUCOSE, URINE NEGATIVE (Neg); KETONES,URINE NEGATIVE (Neg); LEUKOCYTE ESTERASE ,URINE SMALL (Neg); NITRITES, URINE POSITIVE (Neg); OCCULT BLOOD,URINE NEGATIVE (Neg); PH,URINE 7.5 (4.8-8.0); PROTEIN,URINE NEGATIVE (Neg); UROBILINOGEN,URINE 0.2 E.U/dL (0.2-1.0)
[2021-12-17 21:35] LABS: UA COLLECTION TYPE FOLEY CATH
[2021-12-17 21:38] LABS: BACTERIA,URINE 4+ /HPF (Neg); MUCUS STRANDS NONE SEEN /LPF (Neg); RBC,URINE 0-2 /HPF (0-2); SQUAMOUS EPITHELIAL CELL,UR FEW /LPF (FEW); WBC,URINE 0-4 /HPF (0-4)
[2021-12-17] MEDS ORDERED: CefTRIAXone 1000mg IM Kit (w/lidocaine diluent) IM ONE (21:55)
[2021-12-17] MEDS ORDERED: CEPH-585 PO (22:09)
[2021-12-17] MEDS ORDERED: ONDA4TAB12 PO (22:09)
[2021-12-17 23:49] VITALS: BP 104/61
== END 2021-12-17 23:50 | disposition home or self-care (01) ==
LOC: ER 18:55
DX: N39.0 Urinary tract infection, site not specified (principal); Z20.822 Contact with and (suspected) exposure to COVID-19; R11.2 Nausea with vomiting, unspecified; I25.10 Atherosclerotic heart disease of native coronary artery without angina pectoris; E78.00 Pure hypercholesterolemia, unspecified; I10 Essential (primary) hypertension; I25.2 Old myocardial infarction; K21.9 Gastro-esophageal reflux disease without esophagitis; G89.29 Other chronic pain; Z95.5 Presence of coronary angioplasty implant and graft; Z90.710 Acquired absence of both cervix and uterus; Z86.73 Personal history of transient ischemic attack (TIA), and cerebral infarction without residual deficits; Z88.0 Allergy status to penicillin; Z88.2 Allergy status to sulfonamides; Z88.1 Allergy status to other antibiotic agents; Z88.8 Allergy status to other drugs, medicaments and biological substances; Z79.82 Long term (current) use of aspirin; Z79.2 Long term (current) use of antibiotics; Z79.899 Other long term (current) drug therapy
CPT/HCPCS: 36415; 80053; 81001; 83690; 85025; 87077; 87088; 87186; 87502; 87503; 87635; 96372; 96374; 99285; C9803; J0696; J2405

== ENCOUNTER 2022-07-24 16:44 | Inpatient (IN) | payer MEDICAID ==
[~2022-07-24] VITALS: Ht 160 cm; Wt 46.0 kg
[~2022-07-24 16:44] MED LIST changes: +ONDA4TAB12 PO
[2022-07-24 18:55] LABS: BASOPHILS % (AUTO) 0.3 % (0-1); EOSINOPHILS # (AUTO) 0.1 X10'3 (0-0.9); EOSINOPHILS % (AUTO) 2.2 % (0-6); HEMATOCRIT 36.4 % (35.0-45.0); HEMOGLOBIN 12.2 g/dl (12.0-16.0); LYMPHOCYTES % (AUTO) 18.6 % (21-51); MEAN CORPUSCULAR HEMOGLOBIN 31.3 PG (27.0-31.0); MEAN CORPUSCULAR HGB CONC 33.6 g/dL (33.0-36.5); MEAN CORPUSCULAR VOLUME 93.3 FL (78-98); MEAN PLATELET VOLUME 9.3 FL (7.4-10.4); MONOCYTES # (AUTO) 0.4 X10'3 (0-0.9); NEUTROPHILS % (AUTO) 70.9 % (42-75); PLATELET COUNT 236 X10'3 (140-440); RED CELL DISTRIBUTION WIDTH 12.5 % (11.5-14.5); WHITE BLOOD COUNT 5.6 X10'3 (4.5-11.0)
[2022-07-24 19:12] LABS: ALANINE AMINOTRANSFERASE 104 U/L (12-78); ALBUMIN 3.4 G/DL (3.4-5.0); ALBUMIN/GLOBULIN RATIO 0.9 (1.1-1.5); ALKALINE PHOSPHATASE 74 IU/L (46-116); ANION GAP 5 (8-16); ASPARTATE AMINO TRANSFERASE 50 U/L (10-37); BILIRUBIN,TOTAL 0.2 MG/DL (0.1-1.0); BLOOD UREA NITROGEN 11 MG/DL (7-18); BUN/CREATININE RATIO 19.6 (6.6-38.0); CALCIUM 9.1 MG/DL (8.5-10.1); CHLORIDE 100 MMOL/L (99-107); CREATININE 0.56 MG/DL (0.40-0.90); GLUCOSE 90 MG/DL (70-104); POTASSIUM 3.9 MMOL/L (3.5-5.1); SODIUM 135 MMOL/L (135-145); TOTAL CARBON DIOXIDE 30.4 MMOL/L (24-32); TOTAL PROTEIN 7.1 G/DL (6.4-8.2); eGFR > 90 ML/MIN
[2022-07-24] MEDS ORDERED: normal saline 1000ml 1,000 ML IV ONE (21:40)
--- NOTE | 2022-07-24 22:44 | NUR ---
KIRSTEN [phone] (DAUGHTER)
[2022-07-24] MEDS ORDERED: LISI2.5T89 PO (23:25)
[2022-07-24] MEDS ORDERED: SERT25TA PO (23:25)
[2022-07-24] MEDS ORDERED: OXCA150T5 PO (23:27)
[2022-07-24] MEDS ORDERED: OXCA300T4 PO (23:27)
[2022-07-25] VITALS (18 sets, daily range): BP systolic 114–140; BP diastolic 58–99
[2022-07-25] MEDS ORDERED: acetaminophen 650mg rectal suppository RC PRN (00:20)
[2022-07-25] MEDS ORDERED: normal saline 1000ml 1,000 ML IV SCH (00:20)
[2022-07-25] MEDS ORDERED: magnesium 4gm in 100ml NS 100 ML IV PRN (00:20)
[2022-07-25] MEDS ORDERED: magnesium Cl slow-release 64mg tablet PO PRN (00:20)
[2022-07-25] MEDS ORDERED: ondansetron/PF 4mg/2ml inj IV PRN (00:20)
[2022-07-25] MEDS ORDERED: potassium Cl 20 mEq SR tablet PO PRN ×2 (00:20)
[2022-07-25] MEDS ORDERED: potassium Cl 40MEQ/1/2NS 520ml 520 ML IV PRN (00:20)
[2022-07-25] MEDS ORDERED: OXYC-150 GT (01:33)
[2022-07-25] MEDS ORDERED: ATOR40TA71 PO (01:54)
[2022-07-25] MEDS ORDERED: SERT20OR6 GT (02:11)
[2022-07-25] MEDS ORDERED: FLUO20TA28 GT (02:20)
[2022-07-25] MEDS: morphine 2 MG/ML inj. syringe IV PRN ×2 (02:31→10:50)
--- NOTE | 2022-07-25 05:30 | NUR ---
Patient requesting sleeping pill - informed patient it was 0530.
[2022-07-25] MEDS ORDERED: clopidogrel 75mg tablet PO SCH (08:00)
[2022-07-25] MEDS ORDERED: carVEDilol 3.125mg tablet PO SCH (08:00)
[2022-07-25] MEDS ORDERED: oxcarbazepine 150mg tablet PO SCH (08:00)
[2022-07-25] MEDS: gabapentin 100mg capsule PO SCH ×2 (08:00→13:00)
[2022-07-25] MEDS ORDERED: heparin, porcine 5000 units/ml vial SQ SCH (08:00)
[2022-07-25] MEDS ORDERED: fluoxetine 20mg/5ml UD cup PEG SCH (08:00)
[2022-07-25] MEDS ORDERED: K and/or MAG REPLACEMENT MC SCH (08:00)
[2022-07-25] MEDS ORDERED: atorvastatin 20mg tablet PO SCH (08:00)
[2022-07-25] MEDS ORDERED: lisinopril 2.5mg tablet PO SCH (08:00)
[2022-07-25] MEDS ORDERED: levetiracetam 250mg tablet PO SCH (08:00)
--- NOTE | 2022-07-25 08:40 | NUR ---
Patient in room ED HALL07. I have received report from Veronica HALLMAN, charge nurse who received report from ER and had the opportunity to ask questions and assume patient care.
--- NOTE | 2022-07-25 12:53 | NUR ---
1210 Pt called stating she was incontinent of urine. Cleaned pt with two person assist. Pt now resting in bed, call light in reach, rails upx2, freq rounding. Bed alarm is on.
--- NOTE | 2022-07-25 13:13 | NUR ---
Interventional radiology is at the bedside to reinsert g-tube.
[2022-07-25] MEDS ORDERED: midazolam 1 mg/ML 2ml injection ONE (13:28)
[2022-07-25] MEDS ORDERED: iohexol 300mg/ml 100ml inj. ONE (13:29)
[2022-07-25] MEDS ORDERED: fentaNYL/PF 50MCG/1 ML 2ML syringe ONE (13:29)
[2022-07-25] MEDS ORDERED: LIDOcaine 1% 30ml preserv. free vial ONE (13:29)
--- NOTE | 2022-07-25 14:00 | NUR ---
0830 Pt received from ED. Pt to be NPO for G-tube replacement, per .
[2022-07-25] MEDS ORDERED: zinc oxide ointment 30gm tube TP PRN (14:55)
--- NOTE | 2022-07-25 15:05 | NUR ---
Pt iv fluids infusing as ordered.
--- NOTE | 2022-07-25 16:01 | NUR ---
0850 IV started in ED. Left hand 22G.
--- NOTE | 2022-07-25 17:28 | NUR ---
1300 Complete bed change, pt soiled. Two person assist required.
[2022-07-25] MEDS ORDERED: sertraline 50mg tablet PO SCH (21:00)
[2022-07-25] MEDS ORDERED: pantoprazole 40mg Tablet.DR PO SCH (21:00)
[2022-07-25] MEDS ORDERED: temazepam 15mg capsule PO PRN (21:00)
== END 2022-07-25 19:00 | disposition home or self-care (01) | DRG 252 ==
LOC: ER 16:46 → ED HOLD 07-25 00:22 → OBSVTOIN 07-25 00:22 → EDBEDREQ 07-25 07:55
PROVIDERS: ADMIT Internal Medicine; ATTEND Family Medicine
PROC: 0D20XUZ Change Feeding Device in Upper Intestinal Tract, External Approach (ICD-10-PCS; principal; 2022-07-25)
DX: K94.23 Gastrostomy malfunction (principal); E78.00 Pure hypercholesterolemia, unspecified; E86.0 Dehydration; I10 Essential (primary) hypertension; I25.10 Atherosclerotic heart disease of native coronary artery without angina pectoris; I25.2 Old myocardial infarction; Z86.73 Personal history of transient ischemic attack (TIA), and cerebral infarction without residual deficits; Z90.710 Acquired absence of both cervix and uterus
CPT/HCPCS: 36415; 49450; 80053; 83605; 84145; 85025; 87040; 96360; 99152; 99153; 99285; A4314; A4620; A6258; A6402; A6449; B4087; C1769; G0378; J2250; J2270; J2405; J3010; J3490; J7030; Q9967

== ENCOUNTER 2022-12-11 18:27 | Inpatient (IN) | payer MEDICAID ==
[~2022-12-11] VITALS: Ht 157.5 cm; Wt 47.3 kg
[~2022-12-11 18:27] MED LIST changes: -ASPI-1264 PO; -ATOR20TA66 PO; +ATOR40TA71 PO; -BACL20TA PO; -CYCL5TAB PO; +FLUO20TA28 PO; -FLUO40CA26 PO; -ISOS30TA84 PO; +LISI2.5T89 PO; -ONDA4TAB12 PO; -OXCA150T14 PO; +OXCA150T5 PO; +OXYC-150 PO; -PER5325T PO; +SERT20OR6 GT
[2022-12-11] MEDS ORDERED: normal saline 1000ML IV soln IVB ONE (19:40)
[2022-12-11 20:30] LABS: ALANINE AMINOTRANSFERASE 66 U/L (12-78); ALBUMIN 3.5 G/DL (3.4-5.0); ALKALINE PHOSPHATASE 93 IU/L (46-116); ANION GAP 10 (8-16); ASPARTATE AMINO TRANSFERASE 34 U/L (10-37); BILIRUBIN,TOTAL 0.2 MG/DL (0.1-1.0); BLOOD UREA NITROGEN 9 MG/DL (7-18); BUN/CREATININE RATIO 17.6 (6.6-38.0); CALCIUM 8.7 MG/DL (8.5-10.1); CHLORIDE 107 MMOL/L (99-107); CREATININE 0.51 MG/DL (0.40-0.90); GLUCOSE 75 MG/DL (70-104); POTASSIUM 3.3 MMOL/L (3.5-5.1); SODIUM 144 MMOL/L (135-145); TOTAL CARBON DIOXIDE 27.5 MMOL/L (24-32); TOTAL PROTEIN 7.1 G/DL (6.4-8.2); eGFR > 90 ML/MIN
[2022-12-11 21:10] LABS: BASOPHILS % (AUTO) 0.5 % (0-1); EOSINOPHILS # (AUTO) 0.4 X10'3 (0-0.9); EOSINOPHILS % (AUTO) 7.7 % (0-6); HEMATOCRIT 37.7 % (35.0-45.0); HEMOGLOBIN 12.6 g/dl (12.0-16.0); LYMPHOCYTES # (AUTO) 1.3 X10'3 (1.1-4.8); LYMPHOCYTES % (AUTO) 25.4 % (21-51); MEAN CORPUSCULAR HEMOGLOBIN 30.7 PG (27.0-31.0); MEAN CORPUSCULAR HGB CONC 33.5 g/dL (33.0-36.5); MEAN CORPUSCULAR VOLUME 91.7 FL (78-98); MEAN PLATELET VOLUME 8.9 FL (7.4-10.4); MONOCYTES # (AUTO) 0.3 X10'3 (0-0.9); NEUTROPHILS # (AUTO) 3.3 X10'3 (1.8-7.7); NEUTROPHILS % (AUTO) 61.4 % (42-75); PLATELET COUNT 202 X10'3 (140-440); RED BLOOD COUNT 4.11 X10'6 (4.20-5.60); RED CELL DISTRIBUTION WIDTH 13.3 % (11.5-14.5); WHITE BLOOD COUNT 5.3 X10'3 (4.5-11.0)
[2022-12-11] MEDS ORDERED: ondansetron/PF 4mg/2ml inj IV PRN (21:45)
[2022-12-11] MEDS ORDERED: magnesium 4gm in 100ml NS 100 ML IV PRN (21:45)
[2022-12-11] MEDS ORDERED: acetaminophen 325mg tablet PO PRN (21:45)
[2022-12-11] MEDS ORDERED: HYDROcodone/acetaminophen 10/325mg tab PO ONE (21:55)
[2022-12-11] MEDS ORDERED: SERT-434 PO (22:18)
[2022-12-11] MEDS ORDERED: GABA300C PO (22:18)
[2022-12-11] MEDS: oxyCODONE/APAP 10/325mg tablet PO SCH (23:46)
[2022-12-12] MEDS: normal saline 1000ml 1,000 ML IV SCH ×2 (00:37→23:35)
[2022-12-12] MEDS: carVEDilol 3.125mg tablet PO SCH ×3 (00:37→20:13)
[2022-12-12] MEDS: gabapentin 300mg capsule PO SCH ×3 (00:37→20:14)
[2022-12-12] MEDS: levetiracetam 250mg tablet PO SCH ×3 (00:38→20:12)
[2022-12-12] MEDS: sertraline 50mg tablet PO SCH ×2 (02:34→20:13)
[2022-12-12 03:33] LABS: BASOPHILS % (AUTO) 0.5 % (0-1); EOSINOPHILS # (AUTO) 0.4 X10'3 (0-0.9); EOSINOPHILS % (AUTO) 7.6 % (0-6); HEMATOCRIT 34.2 % (35.0-45.0); HEMOGLOBIN 11.6 g/dl (12.0-16.0); LYMPHOCYTES # (AUTO) 1.9 X10'3 (1.1-4.8); LYMPHOCYTES % (AUTO) 37.4 % (21-51); MEAN CORPUSCULAR HEMOGLOBIN 31.1 PG (27.0-31.0); MEAN CORPUSCULAR HGB CONC 33.9 g/dL (33.0-36.5); MEAN CORPUSCULAR VOLUME 91.6 FL (78-98); MEAN PLATELET VOLUME 9.3 FL (7.4-10.4); MONOCYTES # (AUTO) 0.4 X10'3 (0-0.9); MONOCYTES % (AUTO) 7.8 % (2-12); NEUTROPHILS # (AUTO) 2.4 X10'3 (1.8-7.7); NEUTROPHILS % (AUTO) 46.7 % (42-75); PLATELET COUNT 168 X10'3 (140-440); RED BLOOD COUNT 3.74 X10'6 (4.20-5.60); RED CELL DISTRIBUTION WIDTH 13.2 % (11.5-14.5); WHITE BLOOD COUNT 5.2 X10'3 (4.5-11.0)
[2022-12-12 03:46] LABS: ALANINE AMINOTRANSFERASE 53 U/L (12-78); ALBUMIN 2.9 G/DL (3.4-5.0); ALBUMIN/GLOBULIN RATIO 0.9 (1.1-1.5); ALKALINE PHOSPHATASE 76 IU/L (46-116); ANION GAP 6 (8-16); ASPARTATE AMINO TRANSFERASE 27 U/L (10-37); BILIRUBIN,TOTAL 0.2 MG/DL (0.1-1.0); BLOOD UREA NITROGEN 6 MG/DL (7-18); BUN/CREATININE RATIO 14.3 (6.6-38.0); CALCIUM 8.3 MG/DL (8.5-10.1); CHLORIDE 113 MMOL/L (99-107); CREATININE 0.42 MG/DL (0.40-0.90); GLUCOSE 94 MG/DL (70-104); MAGNESIUM 1.6 MG/DL (1.5-2.4); SODIUM 147 MMOL/L (135-145); TOTAL CARBON DIOXIDE 28.4 MMOL/L (24-32); eGFR > 90 ML/MIN
[2022-12-12 03:51] LABS: POTASSIUM 2.8 MMOL/L (3.5-5.1)
[2022-12-12] MEDS: potassium Cl 40MEQ/1/2NS 520ml 520 ML IV PRN ×2 (04:11→14:42)
--- NOTE | 2022-12-12 07:06 | NUR ---
Report attempted, LEXX Mendez to call back for report.
[2022-12-12] MEDS: pantoprazole 40mg Tablet.DR PO SCH (07:30)
--- NOTE | 2022-12-12 07:33 | NUR ---
Report attempted as not received call back, policy change clerks supervisor reports they are to find nurse and have them return call.
--- NOTE | 2022-12-12 07:50 | NUR ---
Patient in room ED 11. I have received report from Lissette CHIPPING MACHINE OPERATOR nurse and had the opportunity to ask questions and assume patient care.
[2022-12-12] MEDS: lisinopril 2.5mg tablet PO SCH (08:00)
[2022-12-12] MEDS: atorvastatin 20mg tablet PO SCH (08:00)
[2022-12-12] MEDS: K and/or MAG REPLACEMENT MC SCH ×2 (08:00→20:00)
[2022-12-12 09:00] VITALS: BP 145/72
[2022-12-12] MEDS: FLUoxetine 20mg capsule PO SCH (09:19)
[2022-12-12] MEDS: oxyCODONE/APAP 10/325mg tablet PO SCH ×3 (09:23→20:14)
[2022-12-12] MEDS ORDERED: [UNRECOGNIZED DRUG - OTHER] PO ONE (10:10)
[2022-12-12 11:00] VITALS: BP 133/58
[2022-12-12] MEDS ORDERED: fentaNYL/PF 50MCG/1 ML 2ML syringe ONE (12:54)
[2022-12-12] MEDS ORDERED: iohexol 300mg/ml 100ml inj. ONE (12:54)
[2022-12-12] MEDS ORDERED: LIDOcaine 1% 30ml preserv. free vial ONE (12:54)
--- NOTE | 2022-12-12 14:24 | NUR ---
Initial: Pt admit for G-tube replacement as previous G-tube fell out a week ago. Pt s/p BSS this morning with ST recs NPO except for PO meds in applesauce. No TF consult at this time though will place recs below for once G-tube replaced and okayed for use by physician. Noted pt with a low Yung of 12. Per EMR pt with no edema or skin issues. LBM 12/10. Will continue to follow closely and make recommendations as appropriate. Recommendations: 1) Once okay to begin TF, continuous Jevity 1.2 with 50 mL/hr goal rate to provide 1200 mL total volume/day, 1440 kcal, 67 g protein, and 968 mL water; Begin at 30 mL/hr and advance by 20 mL Q8H as tolerated to goal rate. 2) IF BOLUS FEEDS: Bolus feed TID with 400 mL goal rate/bolus. Begin at 100 mL bolus and advance by 50 mL each bolus as tolerated until goal rate of 400 mL TID is achieved 3) If continuous TF, additional 80 mL water flush Q4H; If bolus feed, 80 mL water flush before and after each bolus feed; monitor serum Na 4) Once TF, prealbumin q Saturday/ 5) Daily scaled weights; monitor need to adjust recs once a scaled wt is obtained 6) Routine bowel care Addendum: 12/12/22 at [address] Amended: Links added.
[2022-12-12 18:00] VITALS: BP 134/76
--- NOTE | 2022-12-12 18:54 | NUR ---
Problems reprioritized. Patient report given, questions answered & plan of care reviewed with Elisa HALLMAN Traveler.
[2022-12-12 22:00] VITALS: BP 120/66
[2022-12-13 06:00] VITALS: BP 141/70
--- NOTE | 2022-12-13 06:19 | NUR ---
report given to Jenna HALLMAN
--- NOTE | 2022-12-13 07:00 | NUR ---
Patient in room [facility] 358. I have received report from Elisa HALLMAN Traveler and had the opportunity to ask questions and assume patient care.
[2022-12-13 07:02] LABS: BASOPHILS % (AUTO) 0.5 % (0-1); EOSINOPHILS # (AUTO) 0.5 X10'3 (0-0.9); EOSINOPHILS % (AUTO) 6.8 % (0-6); HEMATOCRIT 37.5 % (35.0-45.0); HEMOGLOBIN 12.4 g/dl (12.0-16.0); LYMPHOCYTES # (AUTO) 1.8 X10'3 (1.1-4.8); LYMPHOCYTES % (AUTO) 26.2 % (21-51); MEAN CORPUSCULAR HEMOGLOBIN 30.5 PG (27.0-31.0); MEAN CORPUSCULAR HGB CONC 33.1 g/dL (33.0-36.5); MEAN CORPUSCULAR VOLUME 92.1 FL (78-98); MEAN PLATELET VOLUME 9.6 FL (7.4-10.4); MONOCYTES # (AUTO) 0.4 X10'3 (0-0.9); MONOCYTES % (AUTO) 6.2 % (2-12); NEUTROPHILS # (AUTO) 4.1 X10'3 (1.8-7.7); NEUTROPHILS % (AUTO) 60.3 % (42-75); PLATELET COUNT 180 X10'3 (140-440); RED BLOOD COUNT 4.07 X10'6 (4.20-5.60); RED CELL DISTRIBUTION WIDTH 13.2 % (11.5-14.5); WHITE BLOOD COUNT 6.9 X10'3 (4.5-11.0)
[2022-12-13 07:26] LABS: ALANINE AMINOTRANSFERASE 56 U/L (12-78); ALBUMIN 3.1 G/DL (3.4-5.0); ALKALINE PHOSPHATASE 85 IU/L (46-116); ANION GAP 8 (8-16); ASPARTATE AMINO TRANSFERASE 45 U/L (10-37); BILIRUBIN,TOTAL 0.4 MG/DL (0.1-1.0); BLOOD UREA NITROGEN 3 MG/DL (7-18); BUN/CREATININE RATIO 7.3 (6.6-38.0); CALCIUM 8.8 MG/DL (8.5-10.1); CHLORIDE 109 MMOL/L (99-107); CREATININE 0.41 MG/DL (0.40-0.90); GLUCOSE 68 MG/DL (70-104); MAGNESIUM 1.6 MG/DL (1.5-2.4); POTASSIUM 3.7 MMOL/L (3.5-5.1); SODIUM 142 MMOL/L (135-145); TOTAL CARBON DIOXIDE 24.6 MMOL/L (24-32); TOTAL PROTEIN 6.3 G/DL (6.4-8.2); eGFR > 90 ML/MIN
[2022-12-13] MEDS: K and/or MAG REPLACEMENT MC SCH (08:15)
[2022-12-13] MEDS: lisinopril 2.5mg tablet PO SCH (08:17)
[2022-12-13] MEDS: FLUoxetine 20mg capsule PO SCH (08:18)
[2022-12-13] MEDS: pantoprazole 40mg Tablet.DR PO SCH (08:19)
[2022-12-13] MEDS: gabapentin 300mg capsule PO SCH (08:21)
[2022-12-13] MEDS: carVEDilol 3.125mg tablet PO SCH (08:21)
[2022-12-13] MEDS: oxyCODONE/APAP 10/325mg tablet PO SCH ×2 (08:21→13:09)
[2022-12-13] MEDS: atorvastatin 20mg tablet PO SCH (08:22)
[2022-12-13] MEDS: levetiracetam 250mg tablet PO SCH (08:23)
[2022-12-13 10:00] VITALS: BP 115/67
--- NOTE | 2022-12-13 14:19 | NUR ---
PRESSURE ULCER EDUCATION: DEFINITION: A pressure ulcer is an area of skin that breaks down when you stay in one position too long. The constant pressure against the skin reduces the blood flow to that area and the affected tissue dies. CAUSES: "Being bedridden or in a wheelchair "Fragile skin "Having a chronic condition, such as diabetes or vascular disease "Inability to move certain parts of your body without assistance "Older age "Incontinence of urine or stool SYMPTOMS: "A reddened area that DOES NOT turn white when pressed on - this can be the beginning of a pressure ulcer "A blister, deep sore or a crater - these can be advanced pressure ulcers FIRST AID: "Relieve the pressure on this area "Keep the area clean and dry "Call your primary doctor if you see any of the above symptoms "DO NOT massage the area "DO NOT use a donut shaped or ring shaped pillow- these actually interfere with the blood flow and cause complications PREVENTION: "Check for pressure ulcers everyday "Change position at least every two hours to relieve pressure "Use items that help relieve pressure- pillows, sheepskin, foam padding, and powders. "Keep skin clean and dry "Eat healthy well balanced meals "Exercise daily IF YOU SEE ANY OF THESE SYMPTOMS WHILE IN THE HOSPITAL - TELL YOUR NURSE IMMEDIATELY. IF YOU SEE ANY OF THESE SYMPTOMS WHILE AT HOME OR HAVE ANY QUESTIONS OR CONCERNS ABOUT PRESSURE ULCERS - CALL YOUR PRIMARY DOCTOR IMMEDIATELY. Addendum: 12/13/22 at 1419 by Yolanda Khan LVN Amended: Links added.
--- NOTE | 2022-12-13 15:45 | NUR ---
Pt is A & O x4 in no apparent distress. Pt is DC top home with daughter her direct care specialist. Pt is happy to go home, Mohan extension was given to daughter and both were educated on DC orders. Pt has ALL supplies to continue to feedings at home.
== END 2022-12-13 15:47 | disposition home or self-care (01) | DRG 252 ==
LOC: ER 18:28 → ED HOLD 21:46 → OBSVTOIN 21:46 → SUR 3N 12-12 08:16
PROVIDERS: ADMIT Internal Medicine; ATTEND Family Medicine
PROC: 0DP6XUZ Removal of Feeding Device from Stomach, External Approach (ICD-10-PCS; principal; 2022-12-12)
PROC: 0DH63UZ Insertion of Feeding Device into Stomach, Percutaneous Approach (ICD-10-PCS; 2022-12-12)
DX: K94.23 Gastrostomy malfunction (principal); I11.0 Hypertensive heart disease with heart failure; R13.0 Aphagia; I50.9 Heart failure, unspecified; E78.00 Pure hypercholesterolemia, unspecified; E87.6 Hypokalemia; I25.10 Atherosclerotic heart disease of native coronary artery without angina pectoris; I25.2 Old myocardial infarction; Z86.73 Personal history of transient ischemic attack (TIA), and cerebral infarction without residual deficits; Z88.0 Allergy status to penicillin; Z88.2 Allergy status to sulfonamides; Z90.710 Acquired absence of both cervix and uterus; Z88.8 Allergy status to other drugs, medicaments and biological substances
CPT/HCPCS: 36415; 49450; 71045; 80053; 83735; 85025; 85610; 92508; 92616; 99285; A4620; A6250; B4087; C1769; G0378; J3010; J3480; J3490; J7030; Q9963; Q9967

== ENCOUNTER 2023-04-10 14:58 | Emergency (ER) | payer MEDICAID ==
[~2023-04-10] VITALS: Ht 152.4 cm; Wt 65.0 kg
[~2023-04-10 14:58] MED LIST changes: -GABA-530 PO; +GABA300C PO; -OXCA150T5 PO; +SERT-434 PO; -SERT20OR6 GT
[2023-04-10] MEDS ORDERED: normal saline 1000ML IV soln IV ONE (15:20)
[2023-04-10 17:10] LABS: HEMOGLOBIN 12.5 g/dl (12.0-16.0); MEAN CORPUSCULAR HGB CONC 33.8 g/dL (33.0-36.5); RED BLOOD COUNT 4.09 X10'6 (4.20-5.60)
[2023-04-10 17:11] LABS: BASOPHILS % (AUTO) 0.2 % (0-1); EOSINOPHILS # (AUTO) 0.1 X10'3 (0-0.9); EOSINOPHILS % (AUTO) 0.9 % (0-6); HEMATOCRIT 37.1 % (35.0-45.0); LYMPHOCYTES # (AUTO) 1.4 X10'3 (1.1-4.8); LYMPHOCYTES % (AUTO) 18.2 % (21-51); MEAN CORPUSCULAR HEMOGLOBIN 30.7 PG (27.0-31.0); MEAN CORPUSCULAR VOLUME 90.9 FL (78-98); MEAN PLATELET VOLUME 9.6 FL (7.4-10.4); MONOCYTES # (AUTO) 0.4 X10'3 (0-0.9); MONOCYTES % (AUTO) 5.3 % (2-12); NEUTROPHILS # (AUTO) 5.6 X10'3 (1.8-7.7); NEUTROPHILS % (AUTO) 75.4 % (42-75); PLATELET COUNT 161 X10'3 (140-440); WHITE BLOOD COUNT 7.5 X10'3 (4.5-11.0)
[2023-04-10 17:22] LABS: ALANINE AMINOTRANSFERASE 79 U/L (12-78); ALBUMIN 3.3 G/DL (3.4-5.0); ALBUMIN/GLOBULIN RATIO 0.9 (1.1-1.5); ALKALINE PHOSPHATASE 78 IU/L (46-116); ANION GAP 8 (8-16); ASPARTATE AMINO TRANSFERASE 49 U/L (10-37); BILIRUBIN,TOTAL 0.2 MG/DL (0.1-1.0); BLOOD UREA NITROGEN 15 MG/DL (7-18); BUN/CREATININE RATIO 26.3 (10.0-20.0); CALCIUM 8.7 MG/DL (8.5-10.1); CHLORIDE 107 MMOL/L (99-107); CREATININE 0.57 MG/DL (0.40-0.90); GLUCOSE 104 MG/DL (70-104); MAGNESIUM 1.8 MG/DL (1.5-2.4); POTASSIUM 4.2 MMOL/L (3.5-5.1); SODIUM 140 MMOL/L (135-145); TOTAL CARBON DIOXIDE 24.8 MMOL/L (24-32); TOTAL PROTEIN 6.9 G/DL (6.4-8.2); eGFR > 90 ML/MIN
[2023-04-10 18:03] LABS: CLARITY,URINE CLOUDY (Clear); COLOR,URINE STRAW (Yellow); GLUCOSE, URINE NEGATIVE (Neg); KETONES,URINE NEGATIVE (Neg); LEUKOCYTE ESTERASE ,URINE SMALL (Neg); NITRITES, URINE POSITIVE (Neg); OCCULT BLOOD,URINE NEGATIVE (Neg); PH,URINE 6.5 (4.8-8.0); PROTEIN,URINE NEGATIVE (Neg); UROBILINOGEN,URINE 0.2 E.U/dL (0.2-1.0)
[2023-04-10 18:10] LABS: UA COLLECTION TYPE STRAIGHT CATH
[2023-04-10 18:11] LABS: BACTERIA,URINE 4+ /HPF (Neg); CAL OXALATE CRYSTALS FEW /HPF (NEGATIVE)
[2023-04-10 18:12] LABS: HYALINE CASTS 0-3 /LPF (NEGATIVE); RBC,URINE 0-2 /HPF (0-2); SQUAMOUS EPITHELIAL CELL,UR MODERATE /LPF (FEW); WBC,URINE 0-4 /HPF (0-4)
[2023-04-10] MEDS ORDERED: cephalexin 250mg capsule PO ONE (18:25)
--- NOTE | 2023-04-10 18:44 | NUR ---
assisting RN with pt care. Contacted Poonam, daughter, . She said pt usually goes home via transport van.
[2023-04-10] MEDS ORDERED: CEPH250T PO (18:45)
--- NOTE | 2023-04-10 18:46 | NUR ---
[facility] denied transport as they close at 1700. Waiting to hear back from [facility]
--- NOTE | 2023-04-10 18:59 | NUR ---
DAUGHTER AWARE PT WILL BE TRANSPORTED VIA [facility].
[2023-04-10 19:08] VITALS: BP 137/73
== END 2023-04-10 19:09 | disposition home or self-care (01) ==
LOC: ER 14:59
DX: N39.0 Urinary tract infection, site not specified (principal); R19.7 Diarrhea, unspecified; R53.1 Weakness; R11.0 Nausea; R10.30 Lower abdominal pain, unspecified; I25.10 Atherosclerotic heart disease of native coronary artery without angina pectoris; E78.00 Pure hypercholesterolemia, unspecified; I10 Essential (primary) hypertension; I25.2 Old myocardial infarction; R13.10 Dysphagia, unspecified; G89.29 Other chronic pain; Z86.73 Personal history of transient ischemic attack (TIA), and cerebral infarction without residual deficits; Z87.81 Personal history of (healed) traumatic fracture; Z79.899 Other long term (current) drug therapy; Z90.710 Acquired absence of both cervix and uterus; Z95.5 Presence of coronary angioplasty implant and graft; Z88.0 Allergy status to penicillin; Z88.2 Allergy status to sulfonamides; Z88.1 Allergy status to other antibiotic agents; Z88.8 Allergy status to other drugs, medicaments and biological substances; Z79.2 Long term (current) use of antibiotics
CPT/HCPCS: 36415; 71045; 74176; 80053; 81001; 83605; 83735; 84145; 85025; 87040; 87088; 93005; 96360; 96361; 99285; J7030; 87077; 87186; C1758

== ENCOUNTER 2023-04-13 13:28 | Emergency (ER) | payer MEDICAID ==
[~2023-04-13] VITALS: Ht 152.4 cm; Wt 59.1 kg
[~2023-04-13 13:28] MED LIST changes: +CEPH250T PO
[2023-04-13 13:35] VITALS: BP 116/84
[2023-04-13] MEDS ORDERED: normal saline 1000ML IV soln IVB ONE (14:55)
[2023-04-13] MEDS ORDERED: oxyCODONE/APAP 10/325mg tablet PO ONE (15:20)
[2023-04-13 15:59] LABS: BASOPHILS % (AUTO) 0.5 % (0-1); EOSINOPHILS # (AUTO) 0.1 X10'3 (0-0.9); EOSINOPHILS % (AUTO) 1.2 % (0-6); HEMATOCRIT 33.2 % (35.0-45.0); HEMOGLOBIN 10.8 g/dl (12.0-16.0); LYMPHOCYTES # (AUTO) 1.5 X10'3 (1.1-4.8); LYMPHOCYTES % (AUTO) 33.3 % (21-51); MEAN CORPUSCULAR HEMOGLOBIN 30.6 PG (27.0-31.0); MEAN CORPUSCULAR HGB CONC 32.3 g/dL (33.0-36.5); MEAN CORPUSCULAR VOLUME 94.7 FL (78-98); MEAN PLATELET VOLUME 9.5 FL (7.4-10.4); MONOCYTES # (AUTO) 0.4 X10'3 (0-0.9); MONOCYTES % (AUTO) 7.7 % (2-12); NEUTROPHILS # (AUTO) 2.6 X10'3 (1.8-7.7); NEUTROPHILS % (AUTO) 57.3 % (42-75); PLATELET COUNT 119 X10'3 (140-440); RED BLOOD COUNT 3.51 X10'6 (4.20-5.60); RED CELL DISTRIBUTION WIDTH 13.4 % (11.5-14.5); WHITE BLOOD COUNT 4.6 X10'3 (4.5-11.0)
[2023-04-13 16:13] LABS: ALANINE AMINOTRANSFERASE 68 U/L (12-78); ALBUMIN 2.7 G/DL (3.4-5.0); ALBUMIN/GLOBULIN RATIO 0.9 (1.1-1.5); ALKALINE PHOSPHATASE 64 IU/L (46-116); ANION GAP 11 (8-16); ASPARTATE AMINO TRANSFERASE 46 U/L (10-37); BILIRUBIN,TOTAL 0.2 MG/DL (0.1-1.0); BLOOD UREA NITROGEN 14 MG/DL (7-18); BUN/CREATININE RATIO 19.7 (10.0-20.0); CALCIUM 7.7 MG/DL (8.5-10.1); CHLORIDE 110 MMOL/L (99-107); CREATININE 0.71 MG/DL (0.40-0.90); GLUCOSE 77 MG/DL (70-104); POTASSIUM 3.4 MMOL/L (3.5-5.1); SODIUM 143 MMOL/L (135-145); TOTAL CARBON DIOXIDE 22.5 MMOL/L (24-32); TOTAL PROTEIN 5.6 G/DL (6.4-8.2); eGFR 83 ML/MIN
[2023-04-13] MEDS ORDERED: pantoprazole 40mg IV 80 MG in normal saline 100ml IV soln 100 ML IV ONE (16:25)
[2023-04-13 16:29] LABS: OCCULT BLOOD STOOL NEGATIVE (Neg)
[2023-04-13] MEDS ORDERED: iohexol 300mg/ml 100ml inj. ONE (16:30)
[2023-04-13 17:39] LABS: APTT 27 SECONDS (22-32)
== END 2023-04-13 17:59 | disposition home or self-care (01) ==
LOC: ER 13:29
DX: D64.9 Anemia, unspecified (principal); R07.89 Other chest pain; R11.2 Nausea with vomiting, unspecified; E78.00 Pure hypercholesterolemia, unspecified; I10 Essential (primary) hypertension; K21.9 Gastro-esophageal reflux disease without esophagitis; Z88.0 Allergy status to penicillin; Z88.2 Allergy status to sulfonamides; Z91.041 Radiographic dye allergy status; Z90.710 Acquired absence of both cervix and uterus
CPT/HCPCS: 36415; 71046; 74177; 80053; 82272; 85025; 85610; 85730; 96361; 96374; 99285; C9113; J3490; J7030; Q9967

== ENCOUNTER 2023-06-16 14:28 | Inpatient (IN) | payer MEDICAID ==
[~2023-06-16] VITALS: Ht 154.9 cm; Wt 55.5 kg
[~2023-06-16 14:28] MED LIST changes: -CEPH250T PO
[2023-06-16] MEDS ORDERED: nitroGLYCERIN 0.4mg SUBLingual tab SL PRN (15:10)
[2023-06-16] MEDS ORDERED: aspirin 81mg tab.chew PO ONE (15:10)
[2023-06-16] MEDS ORDERED: aspirin 300mg supp.rect RC ONE (15:30)
[2023-06-16 16:00] LABS: BASOPHILS % (AUTO) 0.1 % (0-1); EOSINOPHILS % (AUTO) 0.3 % (0-6); HEMATOCRIT 35.9 % (35.0-45.0); HEMOGLOBIN 12.2 g/dl (12.0-16.0); LYMPHOCYTES # (AUTO) 0.6 X10'3 (1.1-4.8); LYMPHOCYTES % (AUTO) 5.8 % (21-51); MEAN CORPUSCULAR HEMOGLOBIN 31.3 PG (27.0-31.0); MEAN CORPUSCULAR HGB CONC 33.9 g/dL (33.0-36.5); MEAN CORPUSCULAR VOLUME 92.3 FL (78-98); MONOCYTES # (AUTO) 0.6 X10'3 (0-0.9); MONOCYTES % (AUTO) 5.7 % (2-12); NEUTROPHILS % (AUTO) 88.1 % (42-75); PLATELET COUNT 181 X10'3 (140-440); RED BLOOD COUNT 3.89 X10'6 (4.20-5.60); RED CELL DISTRIBUTION WIDTH 13.4 % (11.5-14.5); WHITE BLOOD COUNT 10.2 X10'3 (4.5-11.0)
[2023-06-16] MEDS ORDERED: nitroGLYCERIN 0.4mg/hour patch TD ONE (16:00)
--- NOTE | 2023-06-16 16:01 | NUR ---
aspirin chg to suppository and nitro chg to patch d/t pt is npo
[2023-06-16 16:05] LABS: APTT 27 SECONDS (22-32)
[2023-06-16 16:09] LABS: ALANINE AMINOTRANSFERASE 59 U/L (12-78); ALBUMIN 3.3 G/DL (3.4-5.0); ALBUMIN/GLOBULIN RATIO 0.8 (1.1-1.5); ALKALINE PHOSPHATASE 79 IU/L (46-116); ANION GAP 13 (8-16); ASPARTATE AMINO TRANSFERASE 44 U/L (10-37); BILIRUBIN,TOTAL 0.4 MG/DL (0.1-1.0); BLOOD UREA NITROGEN 16 MG/DL (7-18); BUN/CREATININE RATIO 25.4 (10.0-20.0); CALCIUM 9.5 MG/DL (8.5-10.1); CHLORIDE 103 MMOL/L (99-107); CREATININE 0.63 MG/DL (0.40-0.90); GLUCOSE 99 MG/DL (70-104); POTASSIUM 3.7 MMOL/L (3.5-5.1); SODIUM 141 MMOL/L (135-145); TOTAL PROTEIN 7.5 G/DL (6.4-8.2); eCRCL 70 ML/MIN; eGFR > 90 ML/MIN
[2023-06-16 16:14] LABS: PRO BRAIN NATRIURETIC PEPTIDE 1191 PG/ML (0-125)
[2023-06-16 16:18] LABS: MAGNESIUM 1.7 MG/DL (1.5-2.4); PRO BRAIN NATRIURETIC PEPTIDE 1232 PG/ML (0-125)
--- NOTE | 2023-06-16 17:21 | NUR ---
RN ATTEMPTING TO FIND OUT WHAT KIND OF PM HAS SO IT MAY BE INTEROGATED.
--- NOTE | 2023-06-16 17:32 | NUR ---
PT DAUGHTER KIRSTEN CALLED AND RN UPDATED HER. PER PT RN CAN SHARE ALL HEALTH INFO WITH HER. KIRSTEN WAS UNSURE WHAT KIND OF PM WAS PUT IN BUT IT WAS PUT IN AT DR ALDANA OFFICE. RN WILL NOTIFY DR MEJIA.
--- NOTE | 2023-06-16 17:46 | NUR ---
PER DR MEJIA PT WILL HAVE CT OF HEAD AND BE ADM TO HOSPITAL.
[2023-06-16] MEDS ORDERED: temazepam 15mg capsule PO PRN (21:00)
--- NOTE | 2023-06-16 22:30 | NUR ---
FC ADMIN PER ORDER 14 FR PATENT AND DRAINING TO GRAVITY W/ STRAW YELLOW URINE NOTED. PT TOLERATED WELL. PT HAD LARGE FORMED BM, ISABELLA CARE PROVIDED.
[2023-06-16 22:37] LABS: BILIRUBIN,URINE SMALL (Neg); CLARITY,URINE CLEAR (Clear); COLOR,URINE YELLOW (Yellow); GLUCOSE, URINE NEGATIVE (Neg); KETONES,URINE >=80 mg/dl (Neg); LEUKOCYTE ESTERASE ,URINE NEGATIVE (Neg); NITRITES, URINE NEGATIVE (Neg); OCCULT BLOOD,URINE NEGATIVE (Neg); PROTEIN,URINE NEGATIVE (Neg); UROBILINOGEN,URINE 0.2 E.U/dL (0.2-1.0)
[2023-06-16 22:39] LABS: UA COLLECTION TYPE FOLEY CATH
[2023-06-16] MEDS ORDERED: morphine 2 MG/ML inj. syringe IV PRN ×3 (23:15→23:45)
[2023-06-16] MEDS ORDERED: bisacodyl 10mg suppository rectal RC PRN (23:45)
[2023-06-16] MEDS ORDERED: diphenhydrAMINE 25mg capsule PO PRN (23:45)
[2023-06-16] MEDS ORDERED: ondansetron 4mg rapidly disintigrating tab PO PRN (23:45)
[2023-06-16] MEDS ORDERED: magnesium hydroxide 30ml (MOM) UD suspension PO PRN (23:45)
[2023-06-16] MEDS ORDERED: acetaminophen 650mg rectal suppository RC PRN (23:45)
[2023-06-16] MEDS ORDERED: HYDROcodone/acetaminophen 10/325mg tab PO PRN (23:45)
[2023-06-16] MEDS ORDERED: HYDROcodone/acetaminophen 5mg/325mg tablet PO PRN (23:45)
[2023-06-16] MEDS ORDERED: acetaminophen 325mg tablet PO PRN ×2 (23:45)
[2023-06-16] MEDS ORDERED: diphenhydrAMINE 50 mg/ml inj IV PRN (23:45)
[2023-06-16] MEDS ORDERED: mag hydrox/Alum hydrox/simeth 30ml oral suspension PO PRN (23:45)
[2023-06-16] MEDS ORDERED: lactulose 20gm/30ml cup PO PRN (23:55)
[2023-06-16] MEDS ORDERED: magnesium citrate 296ml oral solution PO ONE (23:55)
[2023-06-17] VITALS (8 sets, daily range): BP systolic 99–138; BP diastolic 53–74; PULSE 90–113; RESP 15–20; TEMP 97.6–99.9; O2SAT 93–97
[2023-06-17] MEDS: normal saline 1000ml 1,000 ML IV SCH ×2 (00:27→14:03)
[2023-06-17] MEDS: heparin, porcine 5000 units/ml vial SQ SCH ×3 (00:28→17:56)
--- NOTE | 2023-06-17 01:29 | NUR ---
ATTEMPTED TO CALL REPORT, RECEIVING NURSE IN A PT ROOM. WILL CAKK BACK.
[2023-06-17 01:52] LABS: APTT 32 SECONDS (22-32); D-DIMER 1.34 MG/L FEU (0-0.50); INR 1.1 INR; PROTHROMBIN TIME 11.7 SECONDS (9.0-12.0)
[2023-06-17 01:59] LABS: BASOPHILS # (AUTO) 0.1 X10'3 (0-0.2); BASOPHILS % (AUTO) 1.1 % (0-1); EOSINOPHILS # (AUTO) 0.1 X10'3 (0-0.9); EOSINOPHILS % (AUTO) 0.6 % (0-6); HEMATOCRIT 33.9 % (35.0-45.0); HEMOGLOBIN 11.5 g/dl (12.0-16.0); LYMPHOCYTES # (AUTO) 0.8 X10'3 (1.1-4.8); LYMPHOCYTES % (AUTO) 6.8 % (21-51); MEAN CORPUSCULAR HEMOGLOBIN 30.8 PG (27.0-31.0); MEAN CORPUSCULAR HGB CONC 33.8 g/dL (33.0-36.5); MONOCYTES # (AUTO) 0.7 X10'3 (0-0.9); MONOCYTES % (AUTO) 5.6 % (2-12); NEUTROPHILS # (AUTO) 10.1 X10'3 (1.8-7.7); NEUTROPHILS % (AUTO) 85.9 % (42-75); PLATELET COUNT 183 X10'3 (140-440); RED BLOOD COUNT 3.73 X10'6 (4.20-5.60); RED CELL DISTRIBUTION WIDTH 12.9 % (11.5-14.5); WHITE BLOOD COUNT 11.8 X10'3 (4.5-11.0)
[2023-06-17 02:01] LABS: ALANINE AMINOTRANSFERASE 63 U/L (12-78); ALBUMIN/GLOBULIN RATIO 0.8 (1.1-1.5); ALKALINE PHOSPHATASE 77 IU/L (46-116); ANION GAP 19 (8-16); ASPARTATE AMINO TRANSFERASE 48 U/L (10-37); BILIRUBIN,TOTAL 0.4 MG/DL (0.1-1.0); BLOOD UREA NITROGEN 15 MG/DL (7-18); CHLORIDE 103 MMOL/L (99-107); GLUCOSE 91 MG/DL (70-104); MAGNESIUM 1.7 MG/DL (1.5-2.4); PHOSPHORUS 2.7 MG/DL (2.3-4.5); POTASSIUM 3.6 MMOL/L (3.5-5.1); PRO BRAIN NATRIURETIC PEPTIDE 2736 PG/ML (0-125); SODIUM 141 MMOL/L (135-145); TOTAL CARBON DIOXIDE 19.2 MMOL/L (24-32); eCRCL 88 ML/MIN; eGFR > 90 ML/MIN
[2023-06-17 03:26] LABS: URINE AMPHETAMINE SCREEN NEGATIVE (Neg); URINE BARBITUATE SCREEN NEGATIVE (Neg); URINE BENZODIAZEPINES SCREEN NEGATIVE (Neg); URINE CANNABINOID SCREEN NEGATIVE (Neg); URINE COCAINE SCREEN NEGATIVE (Neg); URINE METHADONE SCREEN NEGATIVE (Neg); URINE OPIATE SCREEN NEGATIVE (Neg); URINE PHENCYCLIDINE SCREEN NEGATIVE (Neg)
[2023-06-17 03:27] LABS: TOTAL CELLS COUNTED 100
[2023-06-17 03:28] LABS: PLATELET ESTIMATE NORMAL
--- NOTE | 2023-06-17 06:03 | NUR ---
LOOKED FOR PATIENT'S NITRO PATCH ON CHEST BUT WAS UNABLE TO FIND IT. MUST HAVE FALLEN OFF.
--- NOTE | 2023-06-17 06:56 | NUR ---
Problems reprioritized. Patient report given, questions answered & plan of care reviewed with LEXX HANEY.
--- NOTE | 2023-06-17 07:04 | NUR ---
Patient in room PCU 3014. I have received report from Rowena HALLMAN and had the opportunity to ask questions and assume patient care.
[2023-06-17] MEDS: docusate sod 100mg capsule PO SCH ×2 (08:00→20:00)
[2023-06-17] MEDS ORDERED: OXYC10TA47 PO (11:08)
[2023-06-17] MEDS ORDERED: SERT-432 PO (11:08)
[2023-06-17] MEDS ORDERED: DEXL30CA4 PO (11:08)
[2023-06-17] MEDS ORDERED: GABA300C PO (11:08)
[2023-06-17] MEDS ORDERED: OXYcodone immediate-release 10MG tablet PO PRN (13:00)
[2023-06-17] MEDS ORDERED: oxyCODONE IR 5mg (immed. release) tablet PO PRN (17:57)
--- NOTE | 2023-06-17 18:38 | NUR ---
Problems reprioritized. Patient report given, questions answered & plan of care reviewed with Rowena HALLMAN, patient stable at transfer of care.
[2023-06-17] MEDS: levetiracetam 250mg tablet PO SCH ×2 (20:00→20:26)
[2023-06-17] MEDS: carVEDilol 3.125mg tablet PO SCH (20:25)
[2023-06-17] MEDS: gabapentin 300mg capsule PO SCH (20:25)
[2023-06-17] MEDS ORDERED: polyethylene glycol 3350 17gm powd pack PO SCH (21:00)
--- NOTE | 2023-06-17 21:14 | NUR ---
PT WAS REFUSING HER KEPPRA BECAUSE OF THE DOSING SIZE WE HAVE IT AVAILABLE. SHE NORMALLY TAKES 2 PILLS TO GET HER 1500 MG DOSE BUT THE DOSE THAT THE PHARMACY HAS IN STOCK IS 250 MG AND THAT WILL BE 6 PILLS. THEY SAID IT CANNOT BE CRUSHED. TALKED TO DAUGHTER DAVID AND ASKED HER TO BRING IN THE PATIENT'S KEPPRA FROM HOME IF POSSIBLE BUT SHE SAID HER MOM CAN TAKE THE 6 PILLS SHE JUST DOESN'T WANT TO. SHE SAID TO TRY VANILLA YOGURT AND THAT MIGHT HELP HER GET THEM DOWN. THE PATIENT WAS ABLE TO TAKE HER OTHER MEDICATION WITHOUT ANY YOGURT. THE PATIENT AGREED TO TAKE HER KEPPRA WITH THE VANILLA YOGURT BECAUSE SHE LIKES THE TASTE. THE PATIENT WAS ABLE TO TAKE SOME OF THE KEPPRA PILLS BUT BECAME NAUSEOUS AND VOMITTED THEM UP. PATIENT IS NOW RESTING COMFORTABLY. SPOKE WITH DAVID THE DAUGHTER AND SHE SAID SHE COULDN'T BRING IN THE KEPPRA TONIGHT BUT SHE COULD BRING THEM IN TOMORROW. I TOLD HER TO PLEASE DO THAT BECAUSE WE DON'T WANT HER MOM TO HAVE A SEIZURE FROM ABRUPTLY STOPPING HER KEPPRA.
[2023-06-18] MEDS: heparin, porcine 5000 units/ml vial SQ SCH ×3 (01:51→16:07)
[2023-06-18 02:55] VITALS: BP 128/70; PULSE 105; RESP 16; TEMP 98.1; O2SAT 96
[2023-06-18] MEDS: normal saline 1000ml 1,000 ML IV SCH (04:46)
[2023-06-18] MEDS: ondansetron/PF 4mg/2ml inj IV PRN ×2 (04:51→16:07)
[2023-06-18 06:00] VITALS: BP 127/69; PULSE 90; RESP 13; TEMP 98.7; O2SAT 97
--- NOTE | 2023-06-18 06:15 | NUR ---
Problems reprioritized. Patient report given, questions answered & plan of care reviewed with LEXX BOCANEGRA. Addendum: 06/18/23 at 0616 by Rowena Eckert RN LEXX HANEY
[2023-06-18 07:03] LABS: BASOPHILS % (AUTO) 0.2 % (0-1); EOSINOPHILS % (AUTO) 0.1 % (0-6); HEMOGLOBIN 10.5 g/dl (12.0-16.0); LYMPHOCYTES # (AUTO) 1.1 X10'3 (1.1-4.8); LYMPHOCYTES % (AUTO) 10.1 % (21-51); MEAN CORPUSCULAR HEMOGLOBIN 31.5 PG (27.0-31.0); MEAN CORPUSCULAR HGB CONC 34.1 g/dL (33.0-36.5); MEAN CORPUSCULAR VOLUME 92.6 FL (78-98); MEAN PLATELET VOLUME 9.6 FL (7.4-10.4); MONOCYTES # (AUTO) 0.8 X10'3 (0-0.9); MONOCYTES % (AUTO) 7.6 % (2-12); NEUTROPHILS # (AUTO) 8.6 X10'3 (1.8-7.7); PLATELET COUNT 184 X10'3 (140-440); RED BLOOD COUNT 3.34 X10'6 (4.20-5.60); RED CELL DISTRIBUTION WIDTH 13.2 % (11.5-14.5); WHITE BLOOD COUNT 10.5 X10'3 (4.5-11.0)
[2023-06-18 07:11] LABS: ALANINE AMINOTRANSFERASE 51 U/L (12-78); ALBUMIN 2.6 G/DL (3.4-5.0); ALBUMIN/GLOBULIN RATIO 0.7 (1.1-1.5); ALKALINE PHOSPHATASE 70 IU/L (46-116); ANION GAP 15 (8-16); ASPARTATE AMINO TRANSFERASE 37 U/L (10-37); BILIRUBIN,TOTAL 0.3 MG/DL (0.1-1.0); BLOOD UREA NITROGEN 5 MG/DL (7-18); BUN/CREATININE RATIO 9.3 (10.0-20.0); CALCIUM 8.6 MG/DL (8.5-10.1); CHLORIDE 109 MMOL/L (99-107); CREATININE 0.54 MG/DL (0.40-0.90); GLUCOSE 95 MG/DL (70-104); POTASSIUM 3.1 MMOL/L (3.5-5.1); SODIUM 140 MMOL/L (135-145); TOTAL PROTEIN 6.5 G/DL (6.4-8.2); eCRCL 82 ML/MIN; eGFR > 90 ML/MIN
[2023-06-18 08:00] VITALS: RESP 13; O2SAT 97
[2023-06-18] MEDS: docusate sod 100mg capsule PO SCH (08:00)
[2023-06-18] MEDS ORDERED: pantoprazole 40mg Tablet.DR PO SCH (08:00)
[2023-06-18] MEDS ORDERED: sertraline 25mg tablet PO SCH (08:00)
[2023-06-18] MEDS ORDERED: atorvastatin 20mg tablet PO SCH (08:00)
[2023-06-18] MEDS ORDERED: lisinopril 2.5mg tablet PO SCH (08:00)
[2023-06-18] MEDS ORDERED: FLUoxetine 20mg capsule PO SCH (08:00)
[2023-06-18] MEDS ORDERED: clopidogrel 75mg tablet PO SCH (08:00)
[2023-06-18] MEDS: levetiracetam 250mg tablet PO SCH (08:00)
[2023-06-18] MEDS: gabapentin 300mg capsule PO SCH (08:52)
[2023-06-18] MEDS: carVEDilol 3.125mg tablet PO SCH (08:53)
--- NOTE | 2023-06-18 09:14 | NUR ---
PAGER ID: [phone] MESSAGE: [phone], Jeremie Robbins. Pt is still nauseas and we just gave her pills. Can I get another anti nausea med on board please. Judith LILLY
[2023-06-18 10:00] VITALS: BP 121/67; PULSE 87; RESP 18; TEMP 98.6; O2SAT 97
[2023-06-18] MEDS ORDERED: proCHLORperazine 10 MG/2 ml inj IV PRN (10:45)
[2023-06-18] MEDS ORDERED: levetiracetam 100mg/ml oral solution 5ml UD cup PO SCH (11:15)
[2023-06-18] MEDS ORDERED: PANT-47 PO (11:22)
[2023-06-18] MEDS ORDERED: potassium Cl 20mEq/100mL bag 100 ML IV PRN (13:50)
[2023-06-18] MEDS ORDERED: potassium Cl 40MEQ/270ML bag 250 ML IV PRN (13:50)
[2023-06-18] MEDS ORDERED: magnesium 2GM in 50ml NS 50 ML IV PRN (13:50)
[2023-06-18] MEDS ORDERED: potassium CL 10mEq/100ml bag 100 ML IV PRN (13:50)
[2023-06-18] MEDS ORDERED: potassium Cl 20 mEq SR tablet PO PRN (13:50)
[2023-06-18] MEDS ORDERED: potassium Cl 40MEQ/1/2NS 520ml 520 ML IV PRN (13:50)
[2023-06-18] MEDS ORDERED: magnesium 4gm in 100ml NS 100 ML IV PRN (13:50)
[2023-06-18 15:00] VITALS: BP 102/51; PULSE 95; RESP 18; TEMP 99.1; O2SAT 97
[2023-06-18] MEDS ORDERED: POTASSIUM BICARB 20meq eff tab 20 MEQ TABLET.EFF PO PRN (15:45)
[2023-06-18 18:00] VITALS: BP 117/62; PULSE 88; RESP 16; TEMP 97.6; O2SAT 96
--- NOTE | 2023-06-18 18:38 | NUR ---
Problems reprioritized. Patient report given, questions answered & plan of care reviewed with Rowena Ivory, patient stable at transfer of care.
--- NOTE | 2023-06-18 20:29 | NUR ---
PT WAS GLAD ABOUT DISCHARGE AND WAS TAKEN DOWNSTAIRS IN WHEEL CHAIR BY AIDE. PLACED IN PRIVATE VEHICLE WITH DAUGHTER DAVID. PT VSS
== END 2023-06-18 19:10 | disposition home or self-care (01) | DRG 206 ==
LOC: ER 14:28 → ED HOLD 23:52 → PCU 3S 06-17 02:45
PROVIDERS: ADMIT Family Medicine; ATTEND Family Medicine
DX: T82.119A Breakdown (mechanical) of unspecified cardiac electronic device, initial encounter (principal); I50.23 Acute on chronic systolic (congestive) heart failure; E78.00 Pure hypercholesterolemia, unspecified; E86.0 Dehydration; I48.91 Unspecified atrial fibrillation; F32.A Depression, unspecified; G62.9 Polyneuropathy, unspecified; T75.4XXA Electrocution, initial encounter; W86.8XXA Exposure to other electric current, initial encounter; G89.4 Chronic pain syndrome; I11.0 Hypertensive heart disease with heart failure; I25.10 Atherosclerotic heart disease of native coronary artery without angina pectoris; I25.2 Old myocardial infarction; J44.9 Chronic obstructive pulmonary disease, unspecified; K21.9 Gastro-esophageal reflux disease without esophagitis; M94.0 Chondrocostal junction syndrome [Tietze]; K59.00 Constipation, unspecified; R56.9 Unspecified convulsions; Y71.2 Prosthetic and other implants, materials and accessory cardiovascular devices associated with adverse incidents; Z79.82 Long term (current) use of aspirin; Z88.0 Allergy status to penicillin; Z88.2 Allergy status to sulfonamides; Z90.710 Acquired absence of both cervix and uterus; Z93.1 Gastrostomy status; Z95.0 Presence of cardiac pacemaker
CPT/HCPCS: 36415; 70450; 71045; 80053; 80305; 81003; 83735; 83880; 84100; 84484; 85007; 85025; 85379; 85610; 85730; 87081; 92508; 92616; 93005; 99285; A4314; G0378; J0780; J1644; J1953; J2270; J2405; J7030

== ENCOUNTER 2023-09-30 17:46 | Emergency (ER) | payer MEDICARE, MEDICAID ==
[~2023-09-30] VITALS: Ht 165.1 cm; Wt 42.6 kg
[~2023-09-30 17:46] MED LIST changes: +DEXL30CA4 PO; -OMEP20CA16 PO; -OXYC-150 PO; +OXYC10TA47 PO; +PANT-47 PO; +SERT-432 PO; -SERT-434 PO
[2023-09-30] MEDS ORDERED: ketorolac trometh inj. 60 MG/2 ML VIAL IM ONE (21:25)
[2023-09-30 21:58] VITALS: BP 120/68; PULSE 68; RESP 16; TEMP 98; O2SAT 99
== END 2023-09-30 21:59 | disposition home or self-care (01) ==
LOC: ER 17:46
DX: S93.401A Sprain of unspecified ligament of right ankle, initial encounter (principal); S40.021A Contusion of right upper arm, initial encounter; I25.10 Atherosclerotic heart disease of native coronary artery without angina pectoris; E78.00 Pure hypercholesterolemia, unspecified; I10 Essential (primary) hypertension; I25.2 Old myocardial infarction; G89.29 Other chronic pain; Z87.81 Personal history of (healed) traumatic fracture; Z86.73 Personal history of transient ischemic attack (TIA), and cerebral infarction without residual deficits; Z95.5 Presence of coronary angioplasty implant and graft; Z90.710 Acquired absence of both cervix and uterus; Z95.0 Presence of cardiac pacemaker; Z56.0 Unemployment, unspecified; Z88.0 Allergy status to penicillin; Z88.1 Allergy status to other antibiotic agents; Z88.2 Allergy status to sulfonamides; Z88.8 Allergy status to other drugs, medicaments and biological substances; Z79.899 Other long term (current) drug therapy; X58.XXXA Exposure to other specified factors, initial encounter; Y93.89 Activity, other specified; Y92.89 Other specified places as the place of occurrence of the external cause; Y99.8 Other external cause status
CPT/HCPCS: 73060; 99284

== ENCOUNTER 2023-12-12 14:40 | Inpatient (IN) | payer MEDICAID, MEDICARE ==
[~2023-12-12] VITALS: Ht 152.4 cm; Wt 37.2 kg
[2023-12-12 15:06] LABS: BASOPHILS % (AUTO) 0.4 % (0-1); EOSINOPHILS # (AUTO) 0.1 X10'3 (0-0.9); EOSINOPHILS % (AUTO) 2.2 % (0-6); HEMATOCRIT 32.5 % (35.0-45.0); HEMOGLOBIN 10.9 g/dl (12.0-16.0); LYMPHOCYTES # (AUTO) 1.1 X10'3 (1.1-4.8); LYMPHOCYTES % (AUTO) 17.1 % (21-51); MEAN CORPUSCULAR HEMOGLOBIN 30.5 PG (27.0-31.0); MEAN CORPUSCULAR HGB CONC 33.5 g/dL (33.0-36.5); MEAN CORPUSCULAR VOLUME 90.9 FL (78-98); MEAN PLATELET VOLUME 9.8 FL (7.4-10.4); MONOCYTES # (AUTO) 0.4 X10'3 (0-0.9); MONOCYTES % (AUTO) 6.1 % (2-12); NEUTROPHILS # (AUTO) 4.9 X10'3 (1.8-7.7); NEUTROPHILS % (AUTO) 74.2 % (42-75); PLATELET COUNT 208 X10'3 (140-440); RED BLOOD COUNT 3.57 X10'6 (4.20-5.60); RED CELL DISTRIBUTION WIDTH 14.8 % (11.5-14.5); WHITE BLOOD COUNT 6.6 X10'3 (4.5-11.0)
[2023-12-12 15:24] LABS: ALANINE AMINOTRANSFERASE 17 U/L (12-78); ALBUMIN 3.2 G/DL (3.4-5.0); ALBUMIN/GLOBULIN RATIO 0.8 (1.1-1.5); ALKALINE PHOSPHATASE 52 IU/L (46-116); ANION GAP 7 (8-16); ASPARTATE AMINO TRANSFERASE 10 U/L (10-37); BILIRUBIN,TOTAL 0.2 MG/DL (0.1-1.0); BLOOD UREA NITROGEN 18 MG/DL (7-18); BUN/CREATININE RATIO 26.1 (10.0-20.0); CALCIUM 8.5 MG/DL (8.5-10.1); CHLORIDE 105 MMOL/L (99-107); CREATININE 0.69 MG/DL (0.40-0.90); GLUCOSE 112 MG/DL (70-104); POTASSIUM 4.6 MMOL/L (3.5-5.1); SODIUM 140 MMOL/L (135-145); TOTAL CARBON DIOXIDE 27.6 MMOL/L (24-32); TOTAL PROTEIN 7.2 G/DL (6.4-8.2); eGFR 86 ML/MIN
[2023-12-12 15:30] LABS: PRO BRAIN NATRIURETIC PEPTIDE 824 PG/ML (0-125)
[2023-12-12] MEDS: ondansetron/PF 4mg/2ml inj IV ONE (17:20)
[2023-12-12 19:00] LABS: D-DIMER 0.43 MG/L FEU (0-0.50)
[2023-12-12] MEDS ORDERED: mag hydrox/Alum hydrox/simeth 30ml oral suspension PO PRN (19:05)
[2023-12-12] MEDS ORDERED: ondansetron 4mg rapidly disintigrating tab PO PRN (19:05)
[2023-12-12] MEDS ORDERED: acetaminophen 650mg rectal suppository RC PRN (19:05)
[2023-12-12] MEDS ORDERED: bisacodyl 10mg suppository rectal RC PRN (19:05)
[2023-12-12] MEDS ORDERED: diphenhydrAMINE 25mg capsule PO PRN (19:05)
[2023-12-12] MEDS ORDERED: magnesium hydroxide 30ml (MOM) UD suspension PO PRN (19:05)
[2023-12-12] MEDS: normal saline 1000ml 1,000 ML IV SCH (19:05)
[2023-12-12] MEDS ORDERED: acetaminophen 325mg tablet PO PRN (19:05)
[2023-12-12 19:26] LABS: HEMOGLOBIN A1C 5.4 % (4.5-6.2)
[2023-12-12] MEDS: docusate sod 100mg capsule PO SCH (19:26)
[2023-12-12] MEDS: heparin, porcine 5000 units/ml vial SQ SCH (19:26)
[2023-12-12 19:32] LABS: APTT 25 SECONDS (22-32); PROTHROMBIN TIME 10.5 SECONDS (9.0-12.0)
[2023-12-12 19:35] LABS: MAGNESIUM 2.3 MG/DL (1.5-2.4)
[2023-12-12] MEDS: acetaminophen 325mg tablet PO PRN (19:57)
[2023-12-12 21:03] VITALS: BP 123/55; PULSE 94; RESP 14; TEMP 98.7; O2SAT 97
[2023-12-12 22:01] VITALS: RESP 16; O2SAT 97
[2023-12-12] MEDS: diphenhydrAMINE 50 mg/ml inj IV PRN (22:04)
[2023-12-12] MEDS: morphine 2 MG/ML inj. syringe IV PRN (22:04)
[2023-12-13] VITALS (16 sets, daily range): BP systolic 89–118; BP diastolic 44–80; PULSE 72–113; RESP 12–22; TEMP 97.9–98.5; O2SAT 94–99
[2023-12-13 08:45] LABS: BASOPHILS % (AUTO) 0.4 % (0-1); EOSINOPHILS # (AUTO) 0.1 X10'3 (0-0.9); EOSINOPHILS % (AUTO) 2.2 % (0-6); HEMATOCRIT 31.8 % (35.0-45.0); HEMOGLOBIN 10.7 g/dl (12.0-16.0); LYMPHOCYTES # (AUTO) 2.5 X10'3 (1.1-4.8); LYMPHOCYTES % (AUTO) 42.7 % (21-51); MEAN CORPUSCULAR HEMOGLOBIN 30.4 PG (27.0-31.0); MEAN CORPUSCULAR HGB CONC 33.7 g/dL (33.0-36.5); MEAN CORPUSCULAR VOLUME 90.2 FL (78-98); MEAN PLATELET VOLUME 9.8 FL (7.4-10.4); MONOCYTES # (AUTO) 0.4 X10'3 (0-0.9); MONOCYTES % (AUTO) 6.5 % (2-12); NEUTROPHILS # (AUTO) 2.8 X10'3 (1.8-7.7); NEUTROPHILS % (AUTO) 48.2 % (42-75); PLATELET COUNT 189 X10'3 (140-440); RED BLOOD COUNT 3.52 X10'6 (4.20-5.60); RED CELL DISTRIBUTION WIDTH 14.7 % (11.5-14.5); WHITE BLOOD COUNT 5.8 X10'3 (4.5-11.0)
[2023-12-13 09:14] LABS: CHLORIDE 107 MMOL/L (99-107); SODIUM 143 MMOL/L (135-145)
[2023-12-13] MEDS ORDERED: aminophylline inj. 10 ML IV ONE (09:24)
[2023-12-13] MEDS ORDERED: metoprolol tartrate 1mg/ml inj IV ONE (09:24)
[2023-12-13] MEDS ORDERED: regadenoson 0.4mg/5ml syringe IV ONE (09:24)
[2023-12-13] MEDS: regadenoson 0.4mg/5ml syringe IV ONE (09:32)
[2023-12-13] MEDS: aminophylline 500mg/20ml vial IV ONE (09:35)
[2023-12-13 09:38] LABS: ALANINE AMINOTRANSFERASE 18 U/L (12-78); ALBUMIN 2.9 G/DL (3.4-5.0); ALBUMIN/GLOBULIN RATIO 0.8 (1.1-1.5); ALKALINE PHOSPHATASE 44 IU/L (46-116); ANION GAP 9 (8-16); ASPARTATE AMINO TRANSFERASE 15 U/L (10-37); BILIRUBIN,TOTAL 0.2 MG/DL (0.1-1.0); BLOOD UREA NITROGEN 14 MG/DL (7-18); CALCIUM 8.5 MG/DL (8.5-10.1); CHOL/HDL RATIO 4.5 (0.00-4.99); CHOLESTEROL 199 MG/DL (0-200); CREATININE 0.61 MG/DL (0.40-0.90); GLUCOSE 86 MG/DL (70-104); HDL CHOLESTEROL 44 MG/DL (35-60); LDL CHOLESTEROL 113 MG/DL (50-100); TOTAL CARBON DIOXIDE 26.9 MMOL/L (24-32); TOTAL PROTEIN 6.4 G/DL (6.4-8.2); eCRCL 65 ML/MIN; eGFR > 90 ML/MIN
[2023-12-13] MEDS: ondansetron/PF 4mg/2ml inj IV PRN (10:03)
[2023-12-13 11:18] LABS: TRIGLYCERIDES 286 MG/DL (20-135)
[2023-12-13] MEDS ORDERED: ACET325C6 PO (11:47)
[2023-12-13] MEDS ORDERED: LEVE10002 PO (11:47)
[2023-12-13] MEDS ORDERED: ASPI-1265 PO (11:47)
[2023-12-13] MEDS: HYDROcodone/acetaminophen 5mg/325mg tablet PO PRN (14:12)
[2023-12-13] MEDS: docusate sodium 100mg/10ml UD cup PO SCH (19:06)
[2023-12-13] MEDS: temazepam 15mg capsule PO PRN (22:18)
[2023-12-14 06:18] VITALS: BP 105/54; PULSE 69; RESP 16; TEMP 97.9; O2SAT 99
[2023-12-14 06:44] LABS: BASOPHILS % (AUTO) 0.8 % (0-1); EOSINOPHILS # (AUTO) 0.1 X10'3 (0-0.9); HEMATOCRIT 32.2 % (35.0-45.0); HEMOGLOBIN 10.8 g/dl (12.0-16.0); LYMPHOCYTES # (AUTO) 2.1 X10'3 (1.1-4.8); LYMPHOCYTES % (AUTO) 42.9 % (21-51); MEAN CORPUSCULAR HEMOGLOBIN 30.6 PG (27.0-31.0); MEAN CORPUSCULAR HGB CONC 33.6 g/dL (33.0-36.5); MEAN PLATELET VOLUME 9.7 FL (7.4-10.4); MONOCYTES # (AUTO) 0.4 X10'3 (0-0.9); MONOCYTES % (AUTO) 8.1 % (2-12); NEUTROPHILS # (AUTO) 2.2 X10'3 (1.8-7.7); NEUTROPHILS % (AUTO) 45.2 % (42-75); PLATELET COUNT 183 X10'3 (140-440); RED BLOOD COUNT 3.54 X10'6 (4.20-5.60); RED CELL DISTRIBUTION WIDTH 14.7 % (11.5-14.5); WHITE BLOOD COUNT 4.9 X10'3 (4.5-11.0)
[2023-12-14 06:58] LABS: ALANINE AMINOTRANSFERASE 18 U/L (12-78); ALBUMIN 2.8 G/DL (3.4-5.0); ALBUMIN/GLOBULIN RATIO 0.8 (1.1-1.5); ALKALINE PHOSPHATASE 50 IU/L (46-116); ANION GAP 7 (8-16); ASPARTATE AMINO TRANSFERASE 11 U/L (10-37); BILIRUBIN,TOTAL 0.2 MG/DL (0.1-1.0); BLOOD UREA NITROGEN 14 MG/DL (7-18); BUN/CREATININE RATIO 18.7 (10.0-20.0); CALCIUM 8.7 MG/DL (8.5-10.1); CHLORIDE 108 MMOL/L (99-107); CREATININE 0.75 MG/DL (0.40-0.90); GLUCOSE 111 MG/DL (70-104); POTASSIUM 4.4 MMOL/L (3.5-5.1); SODIUM 145 MMOL/L (135-145); TOTAL CARBON DIOXIDE 29.7 MMOL/L (24-32); TOTAL PROTEIN 6.4 G/DL (6.4-8.2); eCRCL 46 ML/MIN; eGFR 78 ML/MIN
[2023-12-14 08:00] VITALS: RESP 16; O2SAT 95
[2023-12-14 10:00] VITALS: BP 110/58; PULSE 71; RESP 18; TEMP 98; O2SAT 95
[2023-12-14 13:59] VITALS: RESP 16
== END 2023-12-14 16:50 | disposition home or self-care (01) | DRG 302 ==
LOC: ER 14:41 → ED HOLD 19:07 → EDBEDREQ 20:32 → ORTHO 4S 20:53
PROVIDERS: ADMIT Family Medicine; ATTEND Family Medicine
PROC: 4A02XM4 Measurement of Cardiac Total Activity, External Approach (ICD-10-PCS; principal; 2023-12-13)
PROC: 3E033HZ Introduction of Radioactive Substance into Peripheral Vein, Percutaneous Approach (ICD-10-PCS; 2023-12-13)
DX: I25.119 Atherosclerotic heart disease of native coronary artery with unspecified angina pectoris (principal); I50.23 Acute on chronic systolic (congestive) heart failure; E46 Unspecified protein-calorie malnutrition; Z68.1 Body mass index [BMI] 19.9 or less, adult; I69.351 Hemiplegia and hemiparesis following cerebral infarction affecting right dominant side; R07.89 Other chest pain; I42.9 Cardiomyopathy, unspecified; D64.9 Anemia, unspecified; J44.9 Chronic obstructive pulmonary disease, unspecified; K21.9 Gastro-esophageal reflux disease without esophagitis; E78.00 Pure hypercholesterolemia, unspecified; F32.A Depression, unspecified; G89.4 Chronic pain syndrome; I11.0 Hypertensive heart disease with heart failure; M25.511 Pain in right shoulder; Z95.810 Presence of automatic (implantable) cardiac defibrillator; Z90.710 Acquired absence of both cervix and uterus; Z88.0 Allergy status to penicillin; Z88.6 Allergy status to analgesic agent; Z88.1 Allergy status to other antibiotic agents; Z88.2 Allergy status to sulfonamides; Z87.891 Personal history of nicotine dependence; Z79.891 Long term (current) use of opiate analgesic; I25.2 Old myocardial infarction; Z79.899 Other long term (current) drug therapy; Z79.02 Long term (current) use of antithrombotics/antiplatelets; Z56.0 Unemployment, unspecified; I69.322 Dysarthria following cerebral infarction
CPT/HCPCS: 36415; 71045; 73030; 78452; 80053; 80061; 82948; 83036; 83735; 83880; 84100; 84484; 85025; 85379; 85610; 85730; 87081; 92508; 92616; 93005; 93017; 96374; 97116; 97161; 97530; 99285; A6250; A6449; A9500; G0378; J0280; J1200; J1644; J2270; J2405; J2785; J3490; J7030

== ENCOUNTER 2023-12-21 19:33 | Emergency (ER) | payer MEDICARE ==
[~2023-12-21] VITALS: Ht 152.4 cm; Wt 34.4 kg
[~2023-12-21 19:33] MED LIST changes: +ACET325C6 PO; +ASPI-1265 PO; -ATOR40TA71 PO; +LEVE10002 PO; -LEVE500T PO; -PANT-47 PO
[2023-12-21 19:38] VITALS: TEMP 97.8
[2023-12-21 20:50] LABS: BASOPHILS % (AUTO) 0.3 % (0-1); EOSINOPHILS # (AUTO) 0.2 X10'3 (0-0.9); EOSINOPHILS % (AUTO) 2.1 % (0-6); HEMATOCRIT 36.3 % (35.0-45.0); HEMOGLOBIN 12.2 g/dl (12.0-16.0); LYMPHOCYTES # (AUTO) 1.2 X10'3 (1.1-4.8); LYMPHOCYTES % (AUTO) 15.6 % (21-51); MEAN CORPUSCULAR HEMOGLOBIN 30.9 PG (27.0-31.0); MEAN CORPUSCULAR HGB CONC 33.6 g/dL (33.0-36.5); MEAN CORPUSCULAR VOLUME 91.8 FL (78-98); MEAN PLATELET VOLUME 9.7 FL (7.4-10.4); MONOCYTES # (AUTO) 0.4 X10'3 (0-0.9); MONOCYTES % (AUTO) 5.7 % (2-12); NEUTROPHILS # (AUTO) 5.7 X10'3 (1.8-7.7); NEUTROPHILS % (AUTO) 76.3 % (42-75); PLATELET COUNT 203 X10'3 (140-440); RED BLOOD COUNT 3.95 X10'6 (4.20-5.60); RED CELL DISTRIBUTION WIDTH 14.8 % (11.5-14.5); WHITE BLOOD COUNT 7.5 X10'3 (4.5-11.0)
[2023-12-21 20:58] LABS: APTT 25 SECONDS (22-32); PROTHROMBIN TIME 10.7 SECONDS (9.0-12.0)
[2023-12-21 21:06] LABS: ALBUMIN 3.3 G/DL (3.4-5.0); ANION GAP 5 (8-16); BLOOD UREA NITROGEN 25 MG/DL (7-18); BUN/CREATININE RATIO 22.7 (10.0-20.0); CHLORIDE 107 MMOL/L (99-107); GLUCOSE 117 MG/DL (70-104); MAGNESIUM 2.3 MG/DL (1.5-2.4); POTASSIUM 4.2 MMOL/L (3.5-5.1); PRO BRAIN NATRIURETIC PEPTIDE 634 PG/ML (0-125); SODIUM 141 MMOL/L (135-145); TOTAL CARBON DIOXIDE 28.7 MMOL/L (24-32); eCRCL 29 ML/MIN; eGFR 50 ML/MIN
[2023-12-21] MEDS: acetaminophen 325mg tablet PO ONE (21:40)
[2023-12-21] MEDS: normal saline 1000ML IV soln IVB ONE (21:41)
[2023-12-21] MEDS: ondansetron/PF 4mg/2ml inj IV ONE (21:51)
[2023-12-21] MEDS: HYDROcodone/acetaminophen 5mg/325mg tablet PO ONE (21:53)
[2023-12-21] MEDS: fentaNYL/PF 50MCG/1 ML 2ML syringe IV ONE (22:34)
[2023-12-21 22:59] VITALS: BP 96/52; PULSE 72; RESP 14; O2SAT 100
== END 2023-12-21 22:55 | disposition home or self-care (01) ==
LOC: ER 19:34
DX: M79.604 Pain in right leg (principal); E78.00 Pure hypercholesterolemia, unspecified; I10 Essential (primary) hypertension; K21.9 Gastro-esophageal reflux disease without esophagitis; Z88.0 Allergy status to penicillin; Z88.2 Allergy status to sulfonamides; Z91.041 Radiographic dye allergy status; Z88.6 Allergy status to analgesic agent; Z79.899 Other long term (current) drug therapy; Z90.710 Acquired absence of both cervix and uterus
CPT/HCPCS: 36415; 70450; 71045; 72192; 80048; 83735; 83880; 84484; 85025; 85610; 85730; 93005; 96361; 96374; 96375; 99285; J2405; J3010; J7030

== ENCOUNTER 2024-06-17 22:55 | Emergency (ER) | payer MEDICARE, MEDICAID ==
[~2024-06-17] VITALS: Ht 160 cm; Wt 45.0 kg
[~2024-06-17 22:55] MED LIST changes: -DEXL30CA4 PO; +DEXL30CA9 PO; +EMPA10TA PO; +ISOS10TA2 PO; +LACT1CAP26 PO; -LISI2.5T89 PO; -OXYC10TA47 PO; +OXYC1TAB17 PO; +RANO500T6 PO; +SACU1TAB PO; +SPIR25TA5 PO
[2024-06-17] MEDS: normal saline 1000ml 1,000 ML IV ONE (23:35)
[2024-06-17 23:41] LABS: BASOPHILS % (AUTO) 0.7 % (0-1); EOSINOPHILS # (AUTO) 0.1 X10'3 (0-0.9); EOSINOPHILS % (AUTO) 1.4 % (0-6); HEMATOCRIT 34.5 % (35.0-45.0); HEMOGLOBIN 11.6 g/dl (12.0-16.0); LYMPHOCYTES # (AUTO) 1.4 X10'3 (1.1-4.8); LYMPHOCYTES % (AUTO) 38.5 % (21-51); MEAN CORPUSCULAR HEMOGLOBIN 31.9 PG (27.0-31.0); MEAN CORPUSCULAR HGB CONC 33.6 g/dL (33.0-36.5); MEAN CORPUSCULAR VOLUME 95.1 FL (78-98); MEAN PLATELET VOLUME 8.3 FL (7.4-10.4); MONOCYTES # (AUTO) 0.2 X10'3 (0-0.9); MONOCYTES % (AUTO) 5.3 % (2-12); NEUTROPHILS % (AUTO) 54.1 % (42-75); PLATELET COUNT 244 X10'3 (140-440); RED BLOOD COUNT 3.62 X10'6 (4.20-5.60); RED CELL DISTRIBUTION WIDTH 13.2 % (11.5-14.5); WHITE BLOOD COUNT 3.7 X10'3 (4.5-11.0)
[2024-06-17 23:54] LABS: ALBUMIN 3.5 G/DL (3.4-5.0); ANION GAP 10 (8-16); BLOOD UREA NITROGEN 24 MG/DL (7-18); BUN/CREATININE RATIO 25.5 (10.0-20.0); CALCIUM 8.8 MG/DL (8.5-10.1); CHLORIDE 106 MMOL/L (99-107); CREATINE KINASE 57 U/L (26-192); CREATININE 0.94 MG/DL (0.40-0.90); GLUCOSE 114 MG/DL (70-104); POTASSIUM 3.9 MMOL/L (3.5-5.1); SODIUM 139 MMOL/L (135-145); TOTAL CARBON DIOXIDE 23.4 MMOL/L (24-32); eCRCL 44 ML/MIN; eGFR 60 ML/MIN
[2024-06-18] MEDS: HYDROcodone/acetaminophen 5mg/325mg tablet PO ONE (02:03)
[2024-06-18] MEDS: acetaminophen 1,000mg/100ml IV 100 ML IV ONE (02:08)
[2024-06-18 05:17] VITALS: BP 113/62; PULSE 73; RESP 10; O2SAT 98
== END 2024-06-18 05:19 | disposition home or self-care (01) ==
LOC: ER 22:56
DX: G40.909 Epilepsy, unspecified, not intractable, without status epilepticus (principal); I25.10 Atherosclerotic heart disease of native coronary artery without angina pectoris; E78.00 Pure hypercholesterolemia, unspecified; I10 Essential (primary) hypertension; K21.9 Gastro-esophageal reflux disease without esophagitis; Z88.0 Allergy status to penicillin; Z88.2 Allergy status to sulfonamides; Z88.6 Allergy status to analgesic agent; Z91.041 Radiographic dye allergy status; Z79.82 Long term (current) use of aspirin; Z79.899 Other long term (current) drug therapy; Z90.710 Acquired absence of both cervix and uterus
CPT/HCPCS: 36415; 71045; 80048; 82550; 84145; 84484; 85025; 96361; 96374; 99285; J0131; J7030